=== PATIENT | female | born 1960 | race Caucasian/White ===

== ENCOUNTER → 2017-08-19 | Outpatient (CLI) | payer BC ==
[2017-08-19 17:38] LABS: BASO ABS # 0.06 K/uL (0-0.2); EOS % 3.4 %; EOS ABS # 0.21 K/uL (0-0.5); HEMATOCRIT 37.4 % (37-47); HEMOGLOBIN 13.2 g/dL (12.0-16.0); IG# 0.02 K/uL (0.00-0.02); LYMPH % 42.1 %; LYMPH ABS # 2.62 K/uL (1.2-3.4); MEAN CELL VOLUME 98.7 fL (80-100); MEAN CORPUSCULAR HEMOGLOBIN 34.8 pg (25-34); MEAN CORPUSCULAR HGB CONC 35.3 g/dl (32-36); MEAN PLATELET VOLUME 9.3 fL (7.4-10.4); MONO % 11.6 %; MONO ABS # 0.72 K/uL (0.11-0.59); NEUT % 41.6 %; NEUT ABS # 2.59 K/uL (1.4-6.5); PLATELET COUNT 289 K/uL (130-400); RED CELL DISTRIBUTION WIDTH CV 12.4 % (11.5-14.5); RED CELL DISTRIBUTION WIDTH SD 44.8 fL (36.4-46.3); WHITE BLOOD COUNT 6.22 K/uL (4.8-10.8)
[2017-08-19 17:57] LABS: ALBUMIN 3.8 gm/dl (3.4-5.0); ALT/SGPT 35 U/L (12-78); BLOOD UREA NITROGEN 8 mg/dl (7-18); CALCIUM 9.1 mg/dl (8.5-10.1); CARBON DIOXIDE 25 mmol/L (21-32); CREATININE 0.84 mg/dl (0.60-1.20); GLUCOSE 87 mg/dl (70-99); POTASSIUM 4.1 mmol/L (3.5-5.1); SODIUM 133 mmol/L (136-145)
[2017-08-19 18:07] LABS: ALKALINE PHOSPHATASE 67 U/L (45-117); AST/SGOT 41 U/L (15-37); TOTAL PROTEIN 7.8 gm/dl (6.4-8.2)
== END | disposition home or self-care (01) ==
LOC: C.LABMFLN 16:43
PROVIDERS: ATTEND Family Medicine
DX: R63.5 Abnormal weight gain (principal); I10 Essential (primary) hypertension; R53.83 Other fatigue

== ENCOUNTER → 2018-01-12 | Outpatient (CLI) | payer OTHER ==
--- NOTE | 2018-01-13 08:09 | MAMMOGRAPHY REPORT ---
BILATERAL DIGITAL SCREENING MAMMOGRAM TOMOSYNTHESIS WITH CAD: 01/12/2018 CLINICAL HISTORY: Routine screening. Patient has no complaints. TECHNIQUE: The study was acquired using full field digital technology and interpreted from soft copy. Breast tomosynthesis in addition to standard 2D mammography was performed. Current study was also ev aluated with a Computer Aided Detection (CAD) system. COMPARISON: Comparison is made to exams dated: 11/18/2015 mammogram, 06/11/2010 mammogram, 06/10/2009 mammogram - [facility], 06/11/2008, 06/07/2008, and 04/18/2007. BREAST COMPOSITION: The tissue of both breasts is heterogeneously dense, which may obscure small mass es. FINDINGS: There is a lobulated 17 mm mass within the left subareolar breast, for which targeted ultra sound and possible additional spot compression tomosynthesis views are recommended. Additionally, th ere are grouped calcifications within the left 12:00 posterior breast, for which spot magnification v iews are recommended. The remainder of both breasts are stable compared to prior exams, without suspicious masses, calcific ations, or areas of architectural distortion noted. Other scattered bilateral benign-appearing calci fications are not significantly changed. IMPRESSION: ACR BI-RADS CATEGORY 0: INCOMPLETE EVALUATION: NEED ADDITIONAL IMAGING EVALUATION Left breast mass and calcifications, for which additional imaging evaluation is recommended. The pat ient will be called to schedule an appointment. Approximately 10% of breast cancers are not detected with mammography. A negative mammographic report should not delay biopsy if a clinically suggestive mass is present. Kelly Gibbs M.D. ah/:01/13/2018 07:32:48 Bait Tier: Chayito Mathur RT(R)(M)(BD), [facility] letter sent: Addl Imaging 0 BI-RADS Code: ACR BI-RADS Category 0: Incomplete Evaluation: Need Additional Imaging Evaluation
== END | disposition home or self-care (01) ==
LOC: C.MAMM 16:59
PROVIDERS: ATTEND Family Medicine
DX: Z12.31 Encounter for screening mammogram for malignant neoplasm of breast (principal); R92.1 Mammographic calcification found on diagnostic imaging of breast; N63.20 Unspecified lump in the left breast, unspecified quadrant

== ENCOUNTER → 2018-01-21 | Outpatient (CLI) | payer OTHER ==
--- NOTE | 2018-01-21 14:52 | Discharge Instructions ---
Discharge Instructions Procedure Procedure Date: Jan 21, 2018. Reason for visit: Left Mass/Calcifications. Discharge Discharge Date: Jan 21, 2018. Discharge Diagnosis: status post breast biopsy Instructions Activity Recommendations: Additional Limitations (see below) Return to School/Work: no limitations Recommended Home Diet: No Limitations Provider Instructions: ACTIVITY RECOMMENDATIONS: * No lifting, pushing, pulling or exercising the affected side for three days. RETURN TO SCHOOL/WORK: * You may return to work/school after the procedure, but do not perform any strenuous activities for 24 to 48 hours. MEDICATIONS: * Tylenol (two 325 mg) every four to six hours if needed for mild pain (if not allergic to Tylenol). DIET: * Resume previous diet. SPECIAL CARE INSTRUCTIONS: * Keep biopsy site dry for 24 hours. May shower after 24 hours, but do not soak (bathe) incision. * May remove Tegaderm (plastic patch) 24 hours after procedure * Leave the steri-strips on for one week. Allow the steri-strips to fall off by themselves. If not off after one week, you may remove them. You may place a Bandaid crosswise over the strips, if desired. * Apply ice 10 minutes on and 10 minutes off as needed. * Wear a bra at bedtime to sleep more comfortably for 2-3 days. * Your referring physician should have the results after approximately 5 to 7 business days. * Call for unusual bleeding, fever, drainage, etc or if you have any questions call during normal business hours or after hours call Dr Gibbs, . FOLLOW UP VISIT: Follow-up with Referring Physician as scheduled. Yoselyn Campbelly Recommendations: Call your doctor if: * Temperature above 101 degrees * Pain not relieved by pain medicine ordered * There is increased drainage or redness from any incision * You have any unanswered questions or concerns. Your Doctors Instructions noted above were prepared by provider Kelly Gibbs. Patient Signature Section: Patient Instructions Signature Page Sukh Tate Patient (or Guardian) Signature/Date: I have read and understand the instructions given to me by my caregivers. Caregiver/RN/Doctor Signature/Date: The above-named patient and/or guardian has received patient instructions on this date. + Original Patient Signature Page (only) stays with chart. Please make copy for patient.
--- NOTE | 2018-01-21 15:39 | MAMMOGRAPHY REPORT ---
ULTRASOUND GUIDED BIOPSY LEFT BREAST: 01/21/2018 CLINICAL HISTORY: Hypoechoic mass in the left lower outer quadrant subareolar breast. PATIENT CONSENT: The procedure, risks and benefits were discussed with the patient and informed writt en consent was obtained. A timeout was performed immediately prior to the procedure. PROCEDURE DESCRIPTION: With ultrasound guidance, aseptic technique, and lidocaine as the local anesth etic (1% lidocaine to anesthetize the skin and 1% lidocaine with epinephrine to anesthetize the deepe r tissues), the mass of concern in the left subareolar breast was sampled 4 times with a 14-gauge mycirQle ieve biopsy needle. Immediately thereafter, with ultrasound guidance, a metallic localizer clip was placed at the biopsy site. Direct pressure was applied to the site immediately post procedure until hemostasis was achieved. Postprocedure unilateral mammograms were performed to confirm clip placeme nt, which shows a new ribbon-shaped biopsy marker clip within the biopsied mass. Steri-Strips were placed over the site and covered with an Opsite patch. The patient tolerated the procedure without co mplication. She was given wound care instructions. The specimens were sent to pathology for analysis . COMPARISON: Comparison is made to exams dated: 01/21/2018 ultrasound, 01/21/2018 mammogram, 01/12/2018 mammogram, 11/18/2015 mammogram, 06/11/2010 mammogram, and 06/10/2009 mammogram - [facility]. IMPRESSION: ULTRASOUND GUIDED BIOPSY Ultrasound-guided core needle biopsy of the left subareolar breast mass, with clip placement. The pa tient will receive pathology results from her referring provider. Kelly Gibbs M.D. /:01/21/2018 15:14:44 Metal Sprayer Protective Coating: Nighat Burch, [facility]
--- NOTE | 2018-01-21 15:41 | MAMMOGRAPHY REPORT ---
UNILATERAL LEFT DIGITAL DIAGNOSTIC MAMMOGRAM AND TARGETED LEFT ULTRASOUND: 01/21/2018 CLINICAL HISTORY: Call back from screening mammogram for left breast calcifications and left breast m ass. Family history of breast cancer including her mother. TECHNIQUE: The study was acquired using full field digital technology and interpreted from soft copy. Spot magnification left CC and ML views were obtained. COMPARISON: Comparison is made to exams dated: 01/12/2018 mammogram, 11/18/2015 mammogram, 06/11/2010 mammogram, 06/10/2009 mammogram - [facility], 06/07/2008, and 04/18/2007. BREAST COMPOSITION: The tissue of left breast is heterogeneously dense, which may obscure small geovany s. FINDINGS: Spot magnification views demonstrate a persistent low density lobulated 17 mm mass within the left neal bareolar breast, for which ultrasound was performed. There is a small 3 mm cluster of coarse heterog eneous calcifications within the left 12:00 breast which are increased compared to the prior 2016 exa m. Given the interval increase and given the heterogeneous morphology, the calcifications are indete rminate and stereotactic biopsy is recommended for further evaluation. A few other scattered benign coarse and rim calcifications are seen within the left breast on the magnification view. Targeted ultrasound was performed of the left subareolar breast in the region of the mammographic mas s. In the left lower outer quadrant subareolar region, there is a lobulated mixed hypoechoic and ane choic mass which measures 1.6 x 0.7 cm. The margins are not completely circumscribed. This is the a ppearance of a mixed solid and cystic mass and is indeterminate for malignancy. This corresponds wit h the mammographic mass. Recommend ultrasound-guided core needle biopsy for further evaluation. Postprocedural left CC and ML views were obtained after the biopsy performed on the same day. A new ribbon-shaped biopsy marker clip is seen within the biopsied mass in the left subareolar breast. No significant postbiopsy hematoma is seen. IMPRESSION: ACR BI-RADS CATEGORY 4: SUSPICIOUS, ULTRASOUND ACR BI-RADS CATEGORY 4: SUSPICIOUS 1. Lobulated 1.6 cm mixed cystic and solid mass in the left subareolar breast on ultrasound, which c orresponds with the mammographic mass. The mass is indeterminate and ultrasound-guided core needle b iopsy is recommended for further evaluation. 2. Small 3 mm cluster of coarse heterogeneous calcifications in the left 12:00 breast is also indete rminate and stereotactic biopsy is recommended for further evaluation. A phone call was made to the physician's office to confirm faxed results were received. The patient was verbally notified of the results. Per patient request the ultrasound-guided biopsy was performed today, however, due to time constraints the stereotactic biopsy was unable to be performed. The pat ient will need to return for stereotactic biopsy at a later date; she tentatively scheduled the stere otactic biopsy before leaving the department. Some breast cancers are not detected with mammography. A negative mammographic report should not bronson y biopsy if a clinically suggestive mass is present. Kelly Gibbs M.D. ah/:01/21/2018 15:12:57 Case Assembler: RT Be(Mandy)(M), [facility] letter sent: Abnormal 4/5 OVERALL STUDY BIRADS: 4 Suspicious abnormality
== END | disposition home or self-care (01) ==
LOC: C.MAMM 13:48
PROVIDERS: ATTEND Family Medicine
DX: N63.20 Unspecified lump in the left breast, unspecified quadrant (principal); R92.1 Mammographic calcification found on diagnostic imaging of breast; D24.2 Benign neoplasm of left breast; N60.82 Other benign mammary dysplasias of left breast

== ENCOUNTER → 2018-02-01 | Outpatient (CLI) | payer OTHER ==
--- NOTE | 2018-02-01 13:16 | Discharge Instructions ---
Discharge Instructions Procedure Procedure Date: Feb 01, 2018. Reason for visit: Left Calcs. Discharge Discharge Date: Feb 01, 2018. Discharge Diagnosis: post left breast stereotactic guided biopsy Instructions Activity Recommendations: Additional Limitations (see below) Return to School/Work: no limitations Recommended Home Diet: No Limitations Provider Instructions: ACTIVITY RECOMMENDATIONS: * No lifting, pushing, pulling or exercising the affected side for three days. RETURN TO SCHOOL/WORK: * You may return to work/school after the procedure, but do not perform any strenuous activities for 24 to 48 hours. MEDICATIONS: * Tylenol (two 325 mg) every four to six hours if needed for mild pain (if not allergic to Tylenol). DIET: * Resume previous diet. SPECIAL CARE INSTRUCTIONS: * Keep biopsy site dry for 24 hours. May shower after 24 hours, but do not soak (bathe) incision. May remove Tegaderm (plastic patch) 24 hours after procedure * Leave the steri-strips on for one week. Allow the steri-strips to fall off by themselves. If not off after one week, you may remove them. You may place a Bandaid crosswise over the strips, if desired. * Apply ice 10 minutes on and 10 minutes off as needed. * Wear a bra at bedtime to sleep more comfortably for 2-3 days. * Your referring physician should have the results after approximately 5 to 7 business days. * Call for unusual bleeding, fever, drainage, etc or if you have any questions call [phone] during normal business hours or after hours call Dr Stallworth, . FOLLOW UP VISIT: Follow-up with Referring Physician as scheduled. Yoselyn Oropeza Recommendations: Call your doctor if: * Temperature above 101 degrees * Pain not relieved by pain medicine ordered * There is increased drainage or redness from any incision * You have any unanswered questions or concerns. Your Doctors Instructions noted above were prepared by provider Rosy Stallworth. Patient Signature Section: Patient Instructions Signature Page Sukhlupe Tate Patient (or Guardian) Signature/Date: I have read and understand the instructions given to me by my caregivers. Caregiver/RN/Doctor Signature/Date: The above-named patient and/or guardian has received patient instructions on this date. + Original Patient Signature Page (only) stays with chart. Please make copy for patient.
--- NOTE | 2018-02-01 14:42 | MAMMOGRAPHY REPORT ---
STEREOTACTIC GUIDED BIOPSY LEFT BREAST: 02/01/2018 CLINICAL HISTORY: 57-year-old woman presents for stereotactic guided biopsy of a 3 mm cluster of coar se heterogeneous calcifications in the 12:00 posterior left breast. A recent ultrasound-guided core b iopsy of a left subareolar breast mass yielded a fibroepithelial lesion and atypia. COMPARISON: Comparison is made to exams dated: 01/21/2018 ultrasound biopsy, 01/21/2018 ultrasound, mammogram, 01/12/2018 mammogram, 11/18/2015 mammogram, and 06/11/2010 mammogram - [facility]. PATIENT CONSENT: After explaining the risks, benefits and alternatives of the procedure to the patien t, informed consent was obtained both verbally and in writing. Specific risks include: Bleeding, inf ection, puncture of adjacent structure, pain, nontarget biopsy, sampling error, metal allergy and med ication reaction. PROCEDURE DESCRIPTION: A time-out was performed and the left breast was confirmed as the site of biop sy. The patient was placed prone on the stereotactic biopsy table and the breast was placed in latera lmedial compression. A tomosynthesis kinesiotherapist view was obtained which demonstrates the 3 mm grouping of coarse heterogeneous calcifications in question and the calcifications were targeted utilizing the c oordinates obtained by the computer. The skin was prepped with Betadine. 1% Lidocaine with and witho ut epinipherine was administered as local anesthesia. A small skin incision was made. Through the in cision, the needle was inserted to the depth determined by the computer. 8 samples were obtained usin g a [email or web address] Eviva 9-gauge vacuum-assisted biopsy device. The specimen radiograph demonstrated several r epresentative microcalcifications, therefore, a metallic marker was placed at the biopsy site. There was no immediate complication. Hemostasis was achieved after several minutes of manual compression. The samples were sent to pathology in in an appropriately labeled container. Postprocedure CC and ML tomosynthesis views of the left breast were obtained. There is a new dumbbe ll-shaped biopsy marker clip and a 3.4 x 2.3 cm hematoma in the 12:00 posterior left breast at the si te of biopsy. IMPRESSION: STEREOTACTIC GUIDED BIOPSY Status post left breast stereotactic tomosynthesis guided biopsy of a 3 mm grouping of coarse heterog eneous calcifications in the 12:00 posterior left breast. The patient received notification of the biopsy results from her referring physician. Based on biopsy results from the recent previous ultrasound-guided core biopsy of a left subareolar m ass, given the pathologic finding of atypia, surgical consultation for excision is recommended. Rosy Stallworth M.D. ay/:02/01/2018 14:17:42 Attending Technologist: Nighat Burch, [facility] Hammerer: RT Francis(R)(M), [facility]
--- NOTE | 2018-02-01 14:45 | MAMMOGRAPHY REPORT ---
UNILATERAL LEFT DIGITAL DIAGNOSTIC MAMMOGRAM TOMOSYNTHESIS: 02/01/2018 CLINICAL HISTORY: 57-year-old woman with an indeterminate 3 mm cluster of coarse heterogeneous calcif ications in the 12:00 posterior left breast. She presents for stereotactic guided biopsy. A recent Ul trasound-guided core biopsy in the subareolar/retroareolar left breast yielded a fibroepithelial lesi on and atypia. Please refer to the report from left breast stereotactic tomosynthesis guided biopsy performed at the same time for full detail. IMPRESSION: POST PROCEDURE IMAGING FOR MARKER PLACEMENT Please refer to the report from left breast stereotactic tomosynthesis guided biopsy performed at the same time for full detail. Some breast cancers are not detected with mammography. A negative mammographic report should not bronson y biopsy if a clinically suggestive mass is present. Rosy Stallworth M.D. ay/:02/01/2018 13:18:02 [employer] Representatives: RT Francis(Mandy)(M), [facility] BI-RADS Code: Post Procedure Imaging For Marker Placement
== END | disposition home or self-care (01) ==
LOC: C.MAMM 12:28
PROVIDERS: ATTEND Family Medicine
DX: R92.0 Mammographic microcalcification found on diagnostic imaging of breast (principal)

== ENCOUNTER 2022-01-12 10:26 | Inpatient (IN) ==
[2022-01-12] MEDS ORDERED: ONDANSETRON INJ 2 MG/ML 2 ML VIAL IV STA (11:31)
[2022-01-12] MEDS ORDERED: MoRPHine SULFATE 4 MG/ML 1 ML CARP\\VIAL IV STA ×2 (11:31→13:17)
--- NOTE | 2022-01-12 11:34 | Emergency Department Note ---
History of Present Illness General Chief complaint: Hip Pain Stated complaint: LEFT HIP PAIN-POST OP-CAN NOT WALK Time Seen by Provider: 01/12/22 11:08 History of Present Illness Maximum Pain Intensity: 5 This is a 61-year-old female that presents to the emergency department via private vehicle accompanied by son with complaints of "left hip pain, postop, cannot walk". The patient notes that she underwent left hip surgery in August of this year. She states that she was doing okay in the postoperative setting and attending physical therapy. She notes then the pain seemed to return and has worsened to the point now where she cannot even walk on the left leg. She states that she lives alone. She has been falling. She cannot perform activities of daily living secondary to this pain and inability to ambulate on the left leg. The patient states that she has followed with orthopedist/PCP. The patient notes that she is currently on oxycodone but ran out of this today. She notes that that cannot seem to manage her discomfort. She states that she was not able to undergo surgery which was scheduled for this month and is scheduled for surgery January 28. She notes that she cannot wait until then secondary to her pain. Son at bedside voices concern over her at home as she lives alone. Patient rates her current pain at rest as a 5/10 but with attempted weightbearing the left leg it is significantly worse. Patient notes that her orthopedic surgeon is Dr. Peters of [place]. Home Medications Medication Instructions Recorded Confirmed Type omeprazole 20 mg capsule,delayed 20 mg PO QAM #90 caps 11/25/21 01/02/22 Rx release etodolac 500 mg tablet 500 mg PO BID 11/28/21 01/02/22 History multivitamin (Daily Multi-Vitamin) 1 tab PO QAM 11/28/21 01/02/22 History ferrous sulfate 65 mg PO QAM 12/01/21 01/02/22 History folic acid 1 mg tablet 1 mg PO QAM 12/01/21 01/02/22 History oxycodone-acetaminophen 5 mg-325 1 tab PO Q8H PRN Pain 12/01/21 01/02/22 History mg tablet senna 1 tab PO BID 12/05/21 01/02/22 History alprazolam 0.5 mg tablet 0.5 mg PO BID #60 tabs 12/15/21 01/02/22 Rx paroxetine HCl 20 mg tablet 20 mg PO DAILY #30 tabs 12/15/21 01/02/22 Rx paroxetine HCl 40 mg tablet 40 mg PO DAILY #30 tabs 12/15/21 01/02/22 Rx levothyroxine 88 mcg tablet 88 mcg PO DAILY #30 tabs 01/04/22 Rx (Synthroid) magnesium oxide 400 mg PO DAILY #30 tabs 01/05/22 Rx Allergies Allergy/AdvReac Type Severity Reaction Status Date / Time amoxicillin [From Augmentin] Allergy Severe cdif Verified 01/02/22 11:06 clavulanic acid Allergy Severe cdif Verified 01/02/22 11:06 [From Augmentin] sulfamethoxazole Allergy Severe Rash Verified 01/02/22 11:06 [From Bactrim] trimethoprim [From Bactrim] Allergy Severe Rash Verified 01/02/22 11:06 codeine AdvReac Severe "really Verified 01/02/22 11:06 sick" Past Med/Surg History Medical History Anxiety Depression Hx of fracture of left hip Hx of gastroesophageal reflux (GERD) Hypothyroidism Major depressive disorder Surgical History History of colonoscopy History of esophagogastroduodenoscopy (EGD) History of open reduction and internal fixation (ORIF) procedure left, pinning, done at [place] History of tonsillectomy Hx of breast biopsy lt. Family History Mother Anxiety Bipolar disorder Heart disease Depression Breast cancer Father Bipolar disorder Lung disease Colorectal cancer Prostate cancer Social History Smoking Status: Current every day smoker Tobacco Type: Cigarettes Age Started Using Tobacco: 17; packs per day: 1; Cigarettes Per Day: 10-20/day; Second Hand Exposure: No; Hx Alcohol Use: Yes Alcohol type: beer Hx Substance Use: No Preferred Language: Upper Sorbian Communication Ability: Effective Visual Impairment: No Limitations Hearing Ability: Normal Category Consultant Required: No Beliefs That Will Affect Care: None marital status: Single Current Living Situation: Alone current occupational status: retired current occupation: Retired- [employer] Feels Safe at Home: Yes Childhood Exposure to Second-Hand Smoke: Yes caffeine: Yes (coffee ) Dental Care, Regularly: No Physical Activity Frequency: Does not Exercise Seatbelt Use: always Assistive Devices: Glasses and Walker Review of Systems A total of 10 systems reviewed and were otherwise negative Physical Exam Vital Signs Vital Signs - 24 hr 01/12/22 10:28 01/12/22 11:57 01/12/22 12:26 Temperature 36.6 C Temperature Source Temporal Artery Scan Pulse Rate 70 88 Pulse Rate [Left Finger] 87 Respiratory Rate 17 17 16 Respiratory Effort / Characteristics Non-Labored Spontaneous Non-Labored Respiratory Depth Normal Blood Pressure 124/69 Blood Pressure [Left Arm] 121/71 Blood Pressure Mean 87 Blood Pressure Mean [Left Arm] 87 Blood Pressure Position Sitting Pulse Oximetry 98 96 96 Oxygen Delivery Method Room Air Room Air Sepsis Recent Fever Within 48 Hours No Sepsis New/Unexplained Change in Mental Status No Sepsis Action Taken by Nursing No Action Required 01/12/22 14:00 Temperature Temperature Source Pulse Rate Pulse Rate [Left Finger] 79 Respiratory Rate 15 Respiratory Effort / Characteristics Non-Labored Respiratory Depth Blood Pressure Blood Pressure [Left Arm] 116/63 Blood Pressure Mean Blood Pressure Mean [Left Arm] 80 Blood Pressure Position Pulse Oximetry 91 Oxygen Delivery Method Room Air Sepsis Recent Fever Within 48 Hours Sepsis New/Unexplained Change in Mental Status Sepsis Action Taken by Nursing VITAL SIGNS - Vital signs and nursing notes were reviewed. Stable and afebrile. GENERAL -61-year-old female appearing her stated age who is in no acute distress. Communicates well with provider and answers questions appropriately. SKIN - Without rashes. No meningeal or petechial rash. The surgical incision overlying the left lateral hip region is within normal limits. It is well- healed. No dehiscence. No erythema. No fluctuance. No edema. HEAD - NC/AT. EYES - Sclera anicteric. EARS - No deformities of external structures noted on gross examination bilaterally. NOSE - Midline and without cyanosis. No epistaxis or purulent drainage noted. MOUTH/OROPHARYNX - Without perioral cyanosis. NECK - Neck with FROM. No nuchal rigidity. LUNGS - Chest wall symmetric without accessory muscle use, intercostals retractions, or central cyanosis. Normal vesicular breath sounds CTA B/L. No wheezes, rales, or rhonchi appreciated. CARDIAC - RRR with S1/S2. No murmur, rubs, or gallops appreciated. EXTREMITIES - No clubbing or peripheral cyanosis. +5/5 strength noted in UE/LE bilaterally. No bony tenderness to the left greater trochanter region however there is tenderness just superior to this and inferior to this. No step-off. No deformity. No fluctuance. No crepitus. Left dorsalis pedis pulse intact. Temperature symmetric in the lower extremities left compared to right. NEUROLOGIC - Cranial nerves II through XII grossly intact. PSYCH - A&Ox3 and cooperates fully with examiner. Pt is very pleasant and interacts well with examiner. Course Administered Medications Discontinued Medications Morphine Sulfate (Morphine Sulfate 4 Mg/Ml 1 Ml Carp\\Vial) 4 mg IV NOW STA Stop: 01/12/22 11:32 Last Admin: 01/12/22 11:49 Dose: 4 mg Documented By: ML Morphine Sulfate (Morphine Sulfate 4 Mg/Ml 1 Ml Carp\\Vial) 4 mg IV NOW STA Stop: 01/12/22 13:18 Last Admin: 01/12/22 13:22 Dose: 4 mg Documented By: ML Morphine Sulfate (Morphine Sulfate 2 Mg/Ml Carp) 2 mg IV NOW STA Stop: 01/12/22 15:30 Last Admin: 01/12/22 15:49 Dose: 2 mg Documented By: ML Ondansetron HCl (Ondansetron Inj 2 Mg/Ml 2 Ml Vial) 4 mg IV NOW STA Stop: 01/12/22 11:32 Last Admin: 01/12/22 11:49 Dose: 4 mg Documented By: ML Medical Decision Making Laboratory Data Result diagrams: 01/12/22 11:53 01/12/22 11:53 Lab Results 01/12/22 01/12/22 01/12/22 Range/Units 11:53 11:53 11:53 WBC 8.02 (4.8-10.8) K/ul RBC 3.74 L (3.93-5.22) M/uL Hgb 11.6 L (12.0-16.0) g/dl Hct 34.5 (34.1-44.9) % MCV 92.2 (80.0-100.0) fL MCH 31.0 (25.0-34.0) pg MCHC 33.6 (32.0-36.0) g/dL RDW Std Deviation 40.9 (36.4-46.3) fL RDW Coeff of Roland 12.0 (11.5-14.5) % Plt Count 322 (130-400) K/uL MPV 9.1 L (9.4-12.3) fL Immature Gran % (Auto) 0.2 % Neut % (Auto) 68.7 % Lymph % (Auto) 20.1 % Mccracken % (Auto) 8.7 % Eos % (Auto) 1.4 % Baso % (Auto) 0.9 % Neut # (Auto) 5.51 (1.4-6.5) K/uL Lymph # (Auto) 1.61 (1.2-3.4) K/uL Mccracken # (Auto) 0.70 (0.24-0.82) K/uL Eos # (Auto) 0.11 (0-0.50) K/uL Baso # (Auto) 0.07 (0-0.2) K/uL Immature Gran # (Auto) 0.02 (0.00-0.02) K/uL PT 10.6 (9.0-12.0) Seconds INR 1.0 (0.9-1.1) APTT 28.7 (21.0-31.0) Seconds PTT Ratio 1.0 Sodium 131 L (136-145) mmol/L Potassium 5.1 (3.5-5.1) mmol/L Chloride 99 (98-107) mmol/L Carbon Dioxide 27 (21-32) mmol/L Anion Gap 5 (3-11) BUN 13 (6-23) mg/dl Creatinine 0.75 (0.6-1.2) mg/dl Est Cr Clr Drug Dosing Not Reportable Est GFR ( Amer) 99.0 ml/min Est GFR (Non-Af Amer) 85.4 ml/min BUN/Creatinine Ratio 17.3 (10-20) Glucose 81 (70-99(Fasting)) mg/dl Calcium 9.6 (8.5-10.1) mg/dl Magnesium 1.6 L (1.7-2.4) mg/dl Total Bilirubin 0.5 (0.2-1.0) mg/dl AST 20 (13-39) U/L ALT 16 (7-52) U/L Alkaline Phosphatase 85 (34-104) U/L Total Protein 7.7 (6.0-8.3) gm/dl Albumin 4.0 (3.4-5.0) gm/dl Globulin 3.7 (2.5-4.0) gm/dl Albumin/Globulin Ratio 1.1 (0.9-2) SARS-CoV-2, RNA, NAAT (NEGATIVE) 01/12/22 Range/Units 15:11 WBC (4.8-10.8) K/ul RBC (3.93-5.22) M/uL Hgb (12.0-16.0) g/dl Hct (34.1-44.9) % MCV (80.0-100.0) fL MCH (25.0-34.0) pg MCHC (32.0-36.0) g/dL RDW Std Deviation (36.4-46.3) fL RDW Coeff of Roland (11.5-14.5) % Plt Count (130-400) K/uL MPV (9.4-12.3) fL Immature Gran % (Auto) % Neut % (Auto) % Lymph % (Auto) % Mccracken % (Auto) % Eos % (Auto) % Baso % (Auto) % Neut # (Auto) (1.4-6.5) K/uL Lymph # (Auto) (1.2-3.4) K/uL Mccracken # (Auto) (0.24-0.82) K/uL Eos # (Auto) (0-0.50) K/uL Baso # (Auto) (0-0.2) K/uL Immature Gran # (Auto) (0.00-0.02) K/uL PT (9.0-12.0) Seconds INR (0.9-1.1) APTT (21.0-31.0) Seconds PTT Ratio Sodium (136-145) mmol/L Potassium (3.5-5.1) mmol/L Chloride (98-107) mmol/L Carbon Dioxide (21-32) mmol/L Anion Gap (3-11) BUN (6-23) mg/dl Creatinine (0.6-1.2) mg/dl Est Cr Clr Drug Dosing Est GFR ( Amer) ml/min Est GFR (Non-Af Amer) ml/min BUN/Creatinine Ratio (10-20) Glucose (70-99(Fasting)) mg/dl Calcium (8.5-10.1) mg/dl Magnesium (1.7-2.4) mg/dl Total Bilirubin (0.2-1.0) mg/dl AST (13-39) U/L ALT (7-52) U/L Alkaline Phosphatase (34-104) U/L Total Protein (6.0-8.3) gm/dl Albumin (3.4-5.0) gm/dl Globulin (2.5-4.0) gm/dl Albumin/Globulin Ratio (0.9-2) SARS-CoV-2, RNA, NAAT NEGATIVE (NEGATIVE) Imaging Data Radiologist's Impression: Femur X-Ray 01/12/22 11:30 XR femur LT 2V routine, XR pelvis 1-2V routine CLINICAL HISTORY: L hip pain TECHNIQUE: 2 radiographic views of the left femur and one view of the pelvis were obtained. Comparison: None available at the time of this dictation. FINDINGS: Intertrochanteric screws are noted on the left. There is fragmentation and degenerative changes of the left femoral head. Mild degenerative changes are seen in the right hip joint, moderate degenerative changes are in the visualized lumbar spine. The soft tissues are unremarkable. IMPRESSION: Chronic changes are seen without definite evidence of acute fracture, noting limitation of an absence of prior radiographs available for comparison. Intertrochanteric screws are seen in the left femur with fragmentation and degeneration of the left hip joint. ACT 112: Negative or not required by law. Electronically signed by: Galindo Power M.D. 01/12/2022 12:44 PM Pelvis X-Ray 01/12/22 11:30 XR femur LT 2V routine, XR pelvis 1-2V routine CLINICAL HISTORY: L hip pain TECHNIQUE: 2 radiographic views of the left femur and one view of the pelvis were obtained. Comparison: None available at the time of this dictation. FINDINGS: Intertrochanteric screws are noted on the left. There is fragmentation and degenerative changes of the left femoral head. Mild degenerative changes are seen in the right hip joint, moderate degenerative changes are in the visualized lumbar spine. The soft tissues are unremarkable. IMPRESSION: Chronic changes are seen without definite evidence of acute fracture, noting limitation of an absence of prior radiographs available for comparison. Intertrochanteric screws are seen in the left femur with fragmentation and degeneration of the left hip joint. ACT 112: Negative or not required by law. Electronically signed by: Galindo Power M.D. 01/12/2022 12:44 PM MDM Narrative Patient was seen and evaluated as above in room B04. Review was performed of nursing notes and vital signs. I did review pertinent previous visits and patient history. After obtaining a thorough history and physical examination the above work up was performed. Patient presents to us today for evaluation of ongoing left hip discomfort. Patient notes that she underwent left hip surgery in August 2021. She was initially doing well she states in the outpatient/postoperative setting but unfortunately notes return of discomfort now to the point where she is not able to bear weight/ambulate on the left leg. She lives at home. She is here with her son and her son expresses concern over her going home as she does not seem to be able to care for herself safely. Patient notes that she tried calling a nursing facility but notes that she was denied by her insurance secondary to not having the surgery as of yet to replace the hip/inpatient stay. The patient on examination does have a well-healed surgical incision to the left lateral hip joint. There is no evidence of infection. Options of care were discussed with the patient. I did find it reasonable to proceed with x-rays of the patient's pelvis/left femur region to evaluate bony structures. The patient does not seem to have any recent trauma or injury which would lead to acute fracture. The patient does not have any findings by history or exam to suggest infection. She is neurovascularly intact in the lower extremities on my examination. It seems as though the patient is not able to adequately manage her discomfort in the outpatient setting despite prescription pain medication. The patient previously had followed with a [facility] surgeon at [place] but notes that she prefers to follow-up with a surgeon here at [facility]. I spoke with our on-call orthopedic surgeon, Dr. Mullins. We discussed options. At this time it is recommended to have the patient follow-up with her established orthopedic surgeon/surgical group with [facility] to see 1 other joint specialist. I believe this is reasonable. I discussed this with the patient. I then discussed this with her orthopedic surgeon team and spoke to Mora Spivey PA-C. Patient is scheduled for surgery with her team on January 28. She also notes that she prescribed the patient additional pain medication which was sent to the pharmacy this morning. It seems as though the patient has not followed through with some of the recommended preop testing which has subsequently led to a delay in her surgery of which is now on January 28. Patient at this time does not reveal any neurovascular compromise or deficit. No evidence of infection clinically. At this time, I believe it would be reasonable to have the patient admitted to the hospitalist service for further evaluation and management, pain control, and then placement potentially to a retirement facility pending surgical intervention. Patient happy with this plan of care. Case discussed with the hospitalist service. Please refer to further documentation regarding her stay. Patient imaging as above. No evidence of acute fracture. Labs reveal no leukocytosis. Mild anemia noted with hemoglobin of 11.6. Mild hyponatremia 131. Mild hypomagnesemia 1.6. COVID testing negative. Case was discussed with the attending physician. GCS: 15 In the evaluation and treatment of this patient the following differential diagnoses were entertained: Fracture, dislocation, subluxation, contusion, avascular necrosis, infection, lumbar radiculopathy, among others. Impression & Plan Hip pain, left Discharge Plan Visit Data Chief Complaint: Hip Pain Stated Complaint: LEFT HIP PAIN-POST OP-CAN NOT WALK ED Provider: Corona Sprague ED Midlevel Provider: Ramón Rowe Discharge Problem: Hip pain, left Patient Disposition: Admitted As Inpatient Condition: Good Forms Stand Alone Forms: [facility], [facility] Emergency Department, Important Visit Information Prescriptions Prescriptions: No Action omeprazole 20 mg capsule,delayed release(DR/EC) 20 mg PO QAM Qty: 90 0RF alprazolam 0.5 mg tablet 0.5 mg PO BID Qty: 60 0RF paroxetine HCl 20 mg tablet 20 mg PO DAILY Qty: 30 2RF Rx Instructions: in addition to 40mg tab paroxetine HCl 40 mg tablet 40 mg PO DAILY Qty: 30 2RF Rx Instructions: in addition to 20mg tab levothyroxine [Synthroid] 88 mcg tablet 88 mcg PO DAILY Qty: 30 2RF magnesium oxide 400 mg magnesium tablet 400 mg PO DAILY Qty: 30 0RF multivitamin [Daily Multi-Vitamin] Tablet 1 tab PO QAM etodolac 500 mg tablet 500 mg PO BID ferrous sulfate 65 mg PO QAM oxycodone-acetaminophen 5-325 mg Tablet 1 tab PO Q8H PRN (Reason: Pain) folic acid 1 mg Tablet 1 mg PO QAM senna 1 tab PO BID Referrals Referrals: Horacio Morgan DO [Primary Care Provider] -
[2022-01-12 12:04] LABS: Basophils # (auto) 0.07 K/uL (0-0.2); Basophils % (auto) 0.9 %; Eosinophils # (auto) 0.11 K/uL (0-0.50); Eosinophils % (auto) 1.4 %; Hematocrit (blood only) 34.5 % (34.1-44.9); Hemoglobin 11.6 g/dl (12.0-16.0); Immature Granulocytes # (auto) 0.02 K/uL (0.00-0.02); Immature Granulocytes % (auto) 0.2 %; Lymphocytes # (auto) 1.61 K/uL (1.2-3.4); Lymphocytes % (auto) 20.1 %; Mean Corpuscular Hgb Conc 33.6 g/dL (32.0-36.0); Mean Corpuscular Volume 92.2 fL (80.0-100.0); Mean Platelet Volume 9.1 fL (9.4-12.3); Monocytes % (auto) 8.7 %; Neutrophils # (auto) 5.51 K/uL (1.4-6.5); Neutrophils % (auto) 68.7 %; Platelet Count 322 K/uL (130-400); RDW Standard Deviation 40.9 fL (36.4-46.3); Red Blood Count 3.74 M/uL (3.93-5.22); White Blood Count 8.02 K/ul (4.8-10.8)
[2022-01-12 12:16] LABS: Partial Thromboplastin Time 28.7 Seconds (21.0-31.0); Prothrombin Time 10.6 Seconds (9.0-12.0)
[2022-01-12 12:26] LABS: Alanine Aminotransferase 16 U/L (7-52); Albumin Globulin Ratio 1.1 (0.9-2); Alkaline Phosphatase 85 U/L (34-104); Anion Gap 5 (3-11); Aspartate Aminotransferase 20 U/L (13-39); BUN Creatinine Ratio 17.3 (10-20); Bilirubin,Total 0.5 mg/dl (0.2-1.0); Blood Urea Nitrogen 13 mg/dl (6-23); Calcium 9.6 mg/dl (8.5-10.1); Carbon Dioxide 27 mmol/L (21-32); Chloride 99 mmol/L (98-107); Est GFR (Non-African American) 85.4 ml/min; Globulin 3.7 gm/dl (2.5-4.0); Glucose 81 mg/dl (70-99(Fasting)); Magnesium 1.6 mg/dl (1.7-2.4); Potassium 5.1 mmol/L (3.5-5.1); Sodium 131 mmol/L (136-145); Total Protein 7.7 gm/dl (6.0-8.3)
--- NOTE | 2022-01-12 12:46 | XRay Report ---
XR femur LT 2V routine, XR pelvis 1-2V routine CLINICAL HISTORY: L hip pain TECHNIQUE: 2 radiographic views of the left femur and one view of the pelvis were obtained. Comparison: None available at the time of this dictation. FINDINGS: Intertrochanteric screws are noted on the left. There is fragmentation and degenerative changes of th e left femoral head. Mild degenerative changes are seen in the right hip joint, moderate degenerative changes are in the visualized lumbar spine. The soft tissues are unremarkable. IMPRESSION: Chronic changes are seen without definite evidence of acute fracture, noting limitation of an absence of prior radiographs available for comparison. Intertrochanteric screws are seen in the left femur w ith fragmentation and degeneration of the left hip joint. ACT 112: Negative or not required by law. Electronically signed by: Galindo Power M.D. 01/12/2022 12:44 PM
[2022-01-12] MEDS ORDERED: MoRPHine SULFATE 2 MG/ML CARP IV STA (15:29)
--- NOTE | 2022-01-12 15:55 | History & Physical Report ---
Date of Service January 12, 2022 Assessment & Plan (1) Hyponatremia: Plan: - 131, baseline for patient upon review of recent labs. (2) Hypomagnesemia: Plan: - 1.6, on daily magnesium supplementation. - Switch from omeprazole to Pepcid. (3) Anemia: Plan: - Chronic, on daily p.o. iron and folic acid supplementation. - Hgb near baseline today. (4) Hypothyroidism: Plan: - Continue levothyroxine 88 mcg daily. (5) Depression: Plan: - Continue paroxetine 60 mg daily. (6) Anxiety: Plan: - Continue alprazolam 0.5 mg twice daily, as needed. (7) Tobacco use: Plan: - Reports smoking 1 PPD; declines nicotine patch at this time. (8) Alcohol abuse: Plan: - History of per chart review, patient denies this. - Continue folic acid supplementation. Plan - Admit to med/surg. - SCDs for VTE ppx. - Full Code. History of Present Illness Chief Complaint: left hip pain Primary Care Provider: DO Juvencio Wittlupe Tate is a 49-year-old female with past medical history significant for hypothyroidism, GERD, tobacco use, alcohol use, depression, and anxiety who presents with worsening hip pain. Patient had a femur fracture in August and is s/p pinning by Dr. Peters and has been undergoing PT. She initially was responding well to PT, however the last several months, she has had worsening hip pain has not been unable to progress. A hip x-ray from November showed left hip avascular necrosis and patient was scheduled for a total hip replacement the beginning of December, however missed her preop clearance appointment, therefore surgery has been postponed to January. She has been prescribed Percocet, however this is no longer managing her pain and she cannot ambulate at home, reports she has fallen several times due to pain. She is otherwise well complaints, no chest pain, palpitations, shortness of breath, cough, abdominal pain, nausea, vomiting, urinary retention, constipation, numbness or tingling in groin or left leg. In ED, her VS are wnl and stable. Labs largely unremarkable, she has a stable anemia with Hgb 11.6, Na 131, Mg 1.6. Femur and pelvis x rays show chronic changes without evidence of acute fracture. Allergies Allergy/AdvReac Type Severity Reaction Status Date / Time amoxicillin [From Augmentin] Allergy Severe cdif Verified 01/12/22 17:23 clavulanic acid Allergy Severe cdif Verified 01/12/22 17:23 [From Augmentin] sulfamethoxazole Allergy Severe Rash Verified 01/12/22 17:23 [From Bactrim] trimethoprim [From Bactrim] Allergy Severe Rash Verified 01/12/22 17:23 codeine AdvReac Severe "really Verified 01/12/22 17:23 sick" Home Medications Medication Instructions Recorded Confirmed Type omeprazole 20 mg capsule,delayed 20 mg PO QAM #90 caps 11/25/21 01/12/22 Rx release etodolac 500 mg tablet 500 mg PO BID 11/28/21 01/12/22 History multivitamin (Daily Multi-Vitamin) 1 tab PO QAM 11/28/21 01/12/22 History folic acid 1 mg tablet 1 mg PO QAM 12/01/21 01/12/22 History alprazolam 0.5 mg tablet 0.5 mg PO BID #60 tabs 12/15/21 01/12/22 Rx paroxetine HCl 20 mg tablet 20 mg PO DAILY #30 tabs 12/15/21 01/12/22 Rx paroxetine HCl 40 mg tablet 40 mg PO DAILY #30 tabs 12/15/21 01/12/22 Rx magnesium oxide 400 mg PO DAILY #30 tabs 01/05/22 01/12/22 Rx ferrous sulfate 324 mg (65 mg 324 mg PO QAM 01/12/22 01/12/22 History iron) tablet,delayed release levothyroxine 88 mcg tablet 88 mcg PO DAILYBB 01/12/22 01/12/22 History (Synthroid) sennosides 8.6 mg tablet (senna) 8.6 mg PO BID 01/12/22 01/12/22 History aspirin 81 mg tablet,delayed 81 mg PO BID 42 days #84 tabs 01/19/22 Rx release oxycodone-acetaminophen 5 mg-325 1 tab PO Q8H PRN Pain #30 tabs 01/19/22 Rx mg tablet Past Med/Surg History Medical History Anxiety Depression Hx of fracture of left hip Hx of gastroesophageal reflux (GERD) Hypothyroidism Major depressive disorder Surgical History History of colonoscopy History of esophagogastroduodenoscopy (EGD) History of open reduction and internal fixation (ORIF) procedure left, pinning, done at [facility] History of tonsillectomy Hx of breast biopsy lt. Family History Mother Anxiety Bipolar disorder Heart disease Depression Breast cancer Father Bipolar disorder Lung disease Colorectal cancer Prostate cancer Social History Smoking Status: Current every day smoker Tobacco Type: Cigarettes Age Started Using Tobacco: 17; packs per day: 1; Cigarettes Per Day: 10-20/day; Second Hand Exposure: No; Hx Alcohol Use: Yes (quit in august) Alcohol type: beer Hx Substance Use: No Preferred Language: Ukrainian Communication Ability: Effective Visual Impairment: No Limitations Hearing Ability: Normal [employer] Required: No Beliefs That Will Affect Care: None marital status: Current Living Situation: Alone current occupational status: retired current occupation: Retired- [employer] Feels Safe at Home: Yes Childhood Exposure to Second-Hand Smoke: Yes caffeine: Yes (coffee ) Dental Care, Regularly: No Physical Activity Frequency: Does not Exercise Seatbelt Use: always Assistive Devices: Walker Review of Systems Review of Systems: Constitutional: No fever/chills, weakness, fatigue, myalgias, anorexia, night sweats Eyes: No diplopia, no worsening or blurred vision ENT: normal hearing, no trouble swallowing Respiratory: No cough, sputum, dyspnea at rest or on exertion Cardiovascular: No chest pain, tightness or palpitations Abdomen: No pain, nausea, vomiting, diarrhea or constipation : Denies dysuria, hematuria, increased urgency/frequency, urinary retention Musculoskeletal: Left throbbing hip and knee pain with movement; no swelling, calf pain Neurologic: No weakness, numbness/tingling, or balance problems Psychiatric: No anxiety or depression Skin: No rash or itch Physical Exam Physical Exam: General: awake, alert, no apparent distress Head: Normocephalic, atraumatic ENT: PERRL, EOMI, no pharyngeal exudate, mucous membranes moist Chest: Clear to auscultation, on room air, no adventitious breath sounds Cardiac: Regular rate and rhythm, no murmur, no JVD, normal peripheral pulses, good capillary refill Abdominal: NABS x 4 quadrants, soft, nontender to palpation, no rebound, guarding or tenderness Extremities: Normal inspection, no peripheral edema or erythema, calfs nontender to palpation Psych: Normal mood and affect Neuro: AAO x 3, strength intact bilaterally and rated 5/5, no motor deficits, speech is clear, no peripheral sensory deficits Skin: no rash or erythema Results & Data Results & Data ([facility]) Vital Signs (Past 12 Hours) Vital Signs Temp Pulse Pulse Resp BP BP Pulse Ox 01/12/22 14:00 79 15 116/63 91 01/12/22 12:26 87 16 121/71 96 01/12/22 11:57 88 17 96 01/12/22 10:28 36.6 C 70 17 124/69 98 O2 Del Method 01/12/22 14:00 Room Air 01/12/22 12:26 Room Air 01/12/22 11:57 01/12/22 10:28 Room Air Laboratory Results Abnormal lab results 01/12/22 01/12/22 Range/Units 11:53 11:53 RBC 3.74 L (3.93-5.22) M/uL Hgb 11.6 L (12.0-16.0) g/dl MPV 9.1 L (9.4-12.3) fL Sodium 131 L (136-145) mmol/L Magnesium 1.6 L (1.7-2.4) mg/dl Diagnostic Findings Femur X-Ray 01/12/22 11:30 XR femur LT 2V routine, XR pelvis 1-2V routine CLINICAL HISTORY: L hip pain TECHNIQUE: 2 radiographic views of the left femur and one view of the pelvis were obtained. Comparison: None available at the time of this dictation. FINDINGS: Intertrochanteric screws are noted on the left. There is fragmentation and degenerative changes of the left femoral head. Mild degenerative changes are seen in the right hip joint, moderate degenerative changes are in the visualized lumbar spine. The soft tissues are unremarkable. IMPRESSION: Chronic changes are seen without definite evidence of acute fracture, noting limitation of an absence of prior radiographs available for comparison. Intertrochanteric screws are seen in the left femur with fragmentation and degeneration of the left hip joint. ACT 112: Negative or not required by law. Electronically signed by: Galindo Power M.D. 01/12/2022 12:44 PM Pelvis X-Ray 01/12/22 11:30 XR femur LT 2V routine, XR pelvis 1-2V routine CLINICAL HISTORY: L hip pain TECHNIQUE: 2 radiographic views of the left femur and one view of the pelvis were obtained. Comparison: None available at the time of this dictation. FINDINGS: Intertrochanteric screws are noted on the left. There is fragmentation and degenerative changes of the left femoral head. Mild degenerative changes are seen in the right hip joint, moderate degenerative changes are in the visualized lumbar spine. The soft tissues are unremarkable. IMPRESSION: Chronic changes are seen without definite evidence of acute fracture, noting limitation of an absence of prior radiographs available for comparison. Intertrochanteric screws are seen in the left femur with fragmentation and degeneration of the left hip joint. ACT 112: Negative or not required by law. Electronically signed by: Galindo Power M.D. 01/12/2022 12:44 PM Code Status & VTE Plan Code Status Full code Supervising Physician Co-Signing Physician Notes Reviewed medical record, discussed with ROYCE on their service. Patient presented secondary to worsening hip pain, attributed to avascular necrosis. Patient's had worsening pain, has had some difficulty having VICKY as detailed above. Agree with assessment and plan as noted. PG Care Time/CCT Total # of Minutes Spent Total Time Spent with Patient: Total time spent is greater than 50% in coordination of care (as documented) at patient's floor/unit and/or counseling patient: Coding Level of Care Code 16870 Initial Inpt Care Lvl 2 Diagnoses Hyponatremia E87.1 Hypomagnesemia E83.42 Anemia D64.9 Hypothyroidism E03.9 Depression F32.9 Anxiety F41.9 Tobacco use Z72.0 Alcohol abuse F10.10
[2022-01-12] MEDS ORDERED: ONDANSETRON INJ 2 MG/ML 2 ML VIAL IV PRN (20:11)
[2022-01-12] MEDS ORDERED: ACETAMINOPHEN 325 MG TAB PO PRN (20:11)
[2022-01-12] MEDS ORDERED: POLYETHYLENE (MIRALAX) 17 GM PACK PO PRN (20:11)
[2022-01-12] MEDS: MoRPHine SULFATE 4 MG/ML 1 ML CARP\\VIAL IV PRN (20:30)
[2022-01-12] MEDS ORDERED: MAGNESIUM SULFATE / D5W 1 GM/100 ML BAG IV ONE (20:30)
[2022-01-12] MEDS: ALPRAZolam 0.5 MG TABLET PO SCH (22:59)
[2022-01-12] MEDS: SENNA 8.6 MG TAB PO SCH (23:01)
[2022-01-12] MEDS: LIDOCAINE 5% 1 PATCH TD SCH (23:02)
[2022-01-12] MEDS: HYDROmorphone INJ 0.5 MG/0.5 ML SYR IV PRN (23:03)
[2022-01-13] MEDS: MoRPHine SULFATE 4 MG/ML 1 ML CARP\\VIAL IV PRN ×3 (00:21→10:07)
[2022-01-13] MEDS: LEVOTHYROXINE SODIUM 88 MCG TABLET PO SCH (06:26)
[2022-01-13 07:09] LABS: Basophils # (auto) 0.11 K/uL (0-0.2); Basophils % (auto) 1.4 %; Eosinophils # (auto) 0.23 K/uL (0-0.50); Hematocrit (blood only) 34.7 % (34.1-44.9); Hemoglobin 11.8 g/dl (12.0-16.0); Immature Granulocytes # (auto) 0.02 K/uL (0.00-0.02); Immature Granulocytes % (auto) 0.3 %; Lymphocytes # (auto) 1.77 K/uL (1.2-3.4); Lymphocytes % (auto) 23.3 %; Mean Corpuscular Volume 91.1 fL (80.0-100.0); Mean Platelet Volume 9.4 fL (9.4-12.3); Monocytes # (auto) 0.81 K/uL (0.24-0.82); Monocytes % (auto) 10.6 %; Neutrophils # (auto) 4.67 K/uL (1.4-6.5); Neutrophils % (auto) 61.4 %; Platelet Count 337 K/uL (130-400); RDW Coefficient of Variation 11.7 % (11.5-14.5); RDW Standard Deviation 39.4 fL (36.4-46.3); Red Blood Count 3.81 M/uL (3.93-5.22); White Blood Count 7.61 K/ul (4.8-10.8)
[2022-01-13] MEDS: HYDROmorphone INJ 0.5 MG/0.5 ML SYR IV PRN (07:26)
[2022-01-13] MEDS: FOLIC ACID 1 MG TAB PO SCH (07:35)
[2022-01-13] MEDS: PARoxetine HCL 20 MG TAB PO SCH ×2 (07:35)
[2022-01-13] MEDS: ALPRAZolam 0.5 MG TABLET PO SCH ×2 (07:35→20:09)
[2022-01-13] MEDS: MAGNESIUM OXIDE 400 MG TAB PO SCH (07:35)
[2022-01-13] MEDS: FERROUS SULFATE 325 MG TAB PO SCH (07:35)
[2022-01-13 07:44] LABS: BUN Creatinine Ratio 14.3 (10-20); Calcium 9.5 mg/dl (8.5-10.1); Creatinine Clr Calc Pharmacy 74.1 ml/min; Est GFR (African American) 111.4 ml/min; Est GFR (Non-African American) 96.1 ml/min; Magnesium 1.7 mg/dl (1.7-2.4)
[2022-01-13] MEDS ORDERED: FAMOTIDINE 20 MG TAB PO SCH (09:00)
[2022-01-13] MEDS: SENNA 8.6 MG TAB PO SCH ×2 (09:43→20:10)
[2022-01-13] MEDS: ENOXAPARIN INJ 40 MG/0.4 ML SYR SQ SCH (09:52)
[2022-01-13] MEDS ORDERED: bisacodyL 10 MG SUPP PR PRN (10:17)
[2022-01-13] MEDS: oxyCODONE HCL IR 5 MG TAB (IMMEDIATE RELEASE) PO SCH ×3 (12:00→23:08)
[2022-01-13] MEDS: ACETAMINOPHEN 500 MG TAB PO SCH ×2 (14:09→22:17)
--- NOTE | 2022-01-13 14:59 | Orthopedic Consultation ---
Date of Consultation January 13, 2022 Assessment & Plan (1) Hip pain, left: Left hip pain secondarily to AVN s/p CRPP Left hip. Explained that Dr. Fernandes's treatment plan is correct and it was unfortunate that she was unable to complete the preop process previously. Also, explained that I do not preform VICKY. None of my partners who preform VICKY are available or in town. Spoke with Dr. Murillo, who preforms VICKY and will assume care and see the patient tomorrow. In the meantime: Continue care per primary service. TTWB with a walker. Present on Admission?: Yes History of Present Illness Reason for Consultation: Intractable Left hip pain Requesting Physician: Raymond Soni MD Attending Physician: Roxanne Quinonez MD History of Present Illness 61 year old female who fractured her left hip and under went CRPP by Dr. Fernandes August 2021. She was doing well until October or November 2021 where she started having increasing pain despite 4 weeks of PT. She was to have had VICKY December 2021 but missed getting preop lab work due to her pain. She had been seen in his office and was given a Toradol injection. She is on his schedule again in January 2022. She is having difficulty getting around with a walker and states she is dragging the leg behind her. She is having difficulty caring for herself. Allergies Allergy/AdvReac Type Severity Reaction Status Date / Time amoxicillin [From Augmentin] Allergy Severe cdif Verified 01/12/22 17:23 clavulanic acid Allergy Severe cdif Verified 01/12/22 17:23 [From Augmentin] sulfamethoxazole Allergy Severe Rash Verified 01/12/22 17:23 [From Bactrim] trimethoprim [From Bactrim] Allergy Severe Rash Verified 01/12/22 17:23 codeine AdvReac Severe "really Verified 01/12/22 17:23 sick" Home Medications Medication Instructions Recorded Confirmed Type omeprazole 20 mg capsule,delayed 20 mg PO QAM #90 caps 11/25/21 01/12/22 Rx release etodolac 500 mg tablet 500 mg PO BID 11/28/21 01/12/22 History multivitamin (Daily Multi-Vitamin) 1 tab PO QAM 11/28/21 01/12/22 History folic acid 1 mg tablet 1 mg PO QAM 12/01/21 01/12/22 History oxycodone-acetaminophen 5 mg-325 1 tab PO Q8H PRN Pain 12/01/21 01/12/22 History mg tablet alprazolam 0.5 mg tablet 0.5 mg PO BID #60 tabs 12/15/21 01/12/22 Rx paroxetine HCl 20 mg tablet 20 mg PO DAILY #30 tabs 12/15/21 01/12/22 Rx paroxetine HCl 40 mg tablet 40 mg PO DAILY #30 tabs 12/15/21 01/12/22 Rx magnesium oxide 400 mg PO DAILY #30 tabs 01/05/22 01/12/22 Rx ferrous sulfate 324 mg (65 mg 324 mg PO QAM 01/12/22 01/12/22 History iron) tablet,delayed release levothyroxine 88 mcg tablet 88 mcg PO DAILYBB 01/12/22 01/12/22 History (Synthroid) sennosides 8.6 mg tablet (senna) 8.6 mg PO BID 01/12/22 01/12/22 History Patient History Medical History Anxiety Depression Hx of fracture of left hip Hx of gastroesophageal reflux (GERD) Hypothyroidism Major depressive disorder Surgical History History of colonoscopy History of esophagogastroduodenoscopy (EGD) History of open reduction and internal fixation (ORIF) procedure left, pinning, done at [facility] History of tonsillectomy Hx of breast biopsy lt. Family History Mother Anxiety Bipolar disorder Heart disease Depression Breast cancer Father Bipolar disorder Lung disease Colorectal cancer Prostate cancer Social History Smoking Status: Current every day smoker Tobacco Type: Cigarettes Age Started Using Tobacco: 17; packs per day: 1; Cigarettes Per Day: 10-20/day; Second Hand Exposure: No; Do You Dip or Chew Tobacco: No; Tobacco Cessation Education Requested by Patient: No Hx Alcohol Use: Yes (quit in august) Alcohol type: beer Hx Substance Use: No Preferred Language: Setswana Communication Ability: Effective Visual Impairment: No Limitations Hearing Ability: Normal Take [employer] Required: No Beliefs That Will Affect Care: None marital status: Current Living Situation: Alone current occupational status: retired current occupation: Retired- [employer] Other Information That Helps Us Care for You: No Feels Safe at Home: Yes Safety Concerns: Feels Safe At This Time Childhood Exposure to Second-Hand Smoke: Yes caffeine: Yes (coffee ) Dental Care, Regularly: No Physical Activity Frequency: Does not Exercise Seatbelt Use: always Assistive Devices: Walker Review of Systems Review of Systems: All systems reviewed & are unremarkable except as noted in HPI & below Physical Exam Physical Exam: Patient is resting comfortably in bed with her left hip and knee flexed. Sensation to light touch intact distally. Moves toes and ankle. 2+ DP pulse. Calf soft and non-tender. Limited internal and external ROM of hip due to pain. Was able to gentle extend the hip so the leg was flat on the bed. Results & Data ([facility]) Vital Signs (Past 12 Hours) Vital Signs Temp Pulse Resp BP Pulse Ox O2 Del Method 01/13/22 07:09 36.5 C 107 H 20 134/78 91 Room Air Diagnostic Findings Laboratory Results WBC 7.61 K/ul (4.8-10.8) 01/13/22 06:34 RBC 3.81 M/uL (3.93-5.22) L 01/13/22 06:34 Hgb 11.8 g/dl (12.0-16.0) L 01/13/22 06:34 Hct 34.7 % (34.1-44.9) 01/13/22 06:34 MCV 91.1 fL (80.0-100.0) 01/13/22 06:34 MCH 31.0 pg (25.0-34.0) 01/13/22 06:34 MCHC 34.0 g/dL (32.0-36.0) 01/13/22 06:34 RDW Std Deviation 39.4 fL (36.4-46.3) 01/13/22 06:34 RDW Coeff of Roland 11.7 % (11.5-14.5) 01/13/22 06:34 Plt Count 337 K/uL (130-400) 01/13/22 06:34 MPV 9.4 fL (9.4-12.3) 01/13/22 06:34 Immature Gran % (Auto) 0.3 % 01/13/22 06:34 Neut % (Auto) 61.4 % 01/13/22 06:34 Lymph % (Auto) 23.3 % 01/13/22 06:34 [place] % (Auto) 10.6 % 01/13/22 06:34 Eos % (Auto) 3.0 % 01/13/22 06:34 Baso % (Auto) 1.4 % 01/13/22 06:34 Neut # (Auto) 4.67 K/uL (1.4-6.5) 01/13/22 06:34 Lymph # (Auto) 1.77 K/uL (1.2-3.4) 01/13/22 06:34 [place] # (Auto) 0.81 K/uL (0.24-0.82) 01/13/22 06:34 Eos # (Auto) 0.23 K/uL (0-0.50) 01/13/22 06:34 Baso # (Auto) 0.11 K/uL (0-0.2) 01/13/22 06:34 Immature Gran # (Auto) 0.02 K/uL (0.00-0.02) 01/13/22 06:34 PT 10.6 Seconds (9.0-12.0) 01/12/22 11:53 INR 1.0 (0.9-1.1) 01/12/22 11:53 APTT 28.7 Seconds (21.0-31.0) 01/12/22 11:53 PTT Ratio 1.0 01/12/22 11:53 Sodium 132 mmol/L (136-145) L 01/13/22 06:34 Potassium 4.0 mmol/L (3.5-5.1) D 01/13/22 06:34 Chloride 101 mmol/L (98-107) 01/13/22 06:34 Carbon Dioxide 25 mmol/L (21-32) 01/13/22 06:34 Anion Gap 6 (3-11) 01/13/22 06:34 BUN 9 mg/dl (6-23) 01/13/22 06:34 Creatinine 0.63 mg/dl (0.6-1.2) 01/13/22 06:34 Est Cr Clr Drug Dosing 74.1 ml/min 01/13/22 06:34 Est GFR ( Amer) 111.4 ml/min 01/13/22 06:34 Est GFR (Non-Af Amer) 96.1 ml/min 01/13/22 06:34 BUN/Creatinine Ratio 14.3 (10-20) 01/13/22 06:34 Glucose 84 mg/dl (70-99(Fasting)) 01/13/22 06:34 Calcium 9.5 mg/dl (8.5-10.1) 01/13/22 06:34 Magnesium 1.7 mg/dl (1.7-2.4) 01/13/22 06:34 Total Bilirubin 0.5 mg/dl (0.2-1.0) 01/12/22 11:53 AST 20 U/L (13-39) 01/12/22 11:53 ALT 16 U/L (7-52) 01/12/22 11:53 Alkaline Phosphatase 85 U/L (34-104) 01/12/22 11:53 Total Protein 7.7 gm/dl (6.0-8.3) 01/12/22 11:53 Albumin 4.0 gm/dl (3.4-5.0) 01/12/22 11:53 Globulin 3.7 gm/dl (2.5-4.0) 01/12/22 11:53 Albumin/Globulin Ratio 1.1 (0.9-2) 01/12/22 11:53 SARS-CoV-2, RNA, NAAT NEGATIVE (NEGATIVE) 01/12/22 15:11 Impressions Femur X-Ray 01/12/22 11:30 XR femur LT 2V routine, XR pelvis 1-2V routine CLINICAL HISTORY: L hip pain TECHNIQUE: 2 radiographic views of the left femur and one view of the pelvis were obtained. Comparison: None available at the time of this dictation. FINDINGS: Intertrochanteric screws are noted on the left. There is fragmentation and degenerative changes of the left femoral head. Mild degenerative changes are seen in the right hip joint, moderate degenerative changes are in the visualized lumbar spine. The soft tissues are unremarkable. IMPRESSION: Chronic changes are seen without definite evidence of acute fracture, noting limitation of an absence of prior radiographs available for comparison. Intertrochanteric screws are seen in the left femur with fragmentation and degeneration of the left hip joint. ACT 112: Negative or not required by law. Electronically signed by: Galindo Power M.D. 01/12/2022 12:44 PM Pelvis X-Ray 01/12/22 11:30 XR femur LT 2V routine, XR pelvis 1-2V routine CLINICAL HISTORY: L hip pain TECHNIQUE: 2 radiographic views of the left femur and one view of the pelvis were obtained. Comparison: None available at the time of this dictation. FINDINGS: Intertrochanteric screws are noted on the left. There is fragmentation and degenerative changes of the left femoral head. Mild degenerative changes are seen in the right hip joint, moderate degenerative changes are in the visualized lumbar spine. The soft tissues are unremarkable.
--- NOTE | 2022-01-13 17:24 | Hospitalist Progress Note ---
Date of Service January 13, 2022 Assessment & Plan (1) Left hip pain: Plan: - Imaging shows fragmentation and degeneration of left hip joint; reportedly AVN was seen though I am not finding that; regardless, left hip replacement was planned; at present severely incapacitated on account of pain; orthopedics consulted (unfortunately, her orthopedic surgeon does not round here) Pain control, bowel regimen (2) Hyponatremia: Plan: - Mild, can be followed (3) Hypomagnesemia: Plan: - Improvedfollow; while good thought no reason not to keep PPI at this levelswitched to PPI, history of ulcer bleed though remote (4) Anemia: Plan: - Chronic, on daily p.o. iron and folic acid supplementation. - Hgb near baseline today. (5) Hypothyroidism: Plan: - Continue levothyroxine 88 mcg daily. (6) Depression: Plan: - Continue paroxetine 60 mg daily. (7) Anxiety: Plan: - Continue alprazolam 0.5 mg twice daily, as needed. (8) Tobacco use: Plan: - Reports smoking 1 PPD; declines nicotine patch at this time. (9) Alcohol abuse: Plan: - History of per chart review, patient denies this. - Continue folic acid supplementation. Follow clinicallyintuitively low risk for withdrawal if alcohol abuse current but observe Plan - Admit to med/surg. - SCDs for VTE ppx. - Full Code. Admission and Anticipated Discharge Date Admission Date: January 12, 2022 Subjective Follow-up of presentation with left hip paincontinuing pain Physical Exam Physical Exam: Constitutional and general: No acute distress, looks biologic age Head and face: No puffiness, atraumatic Eyes: No scleral icterus, extraocular movements normal Neck: Supple, no JVD Skin/dermatologic/integument: No rash, no purpura Hematologic and lymphatic: pallor +, no petechia Gastrointestinal/abdomen: Nondistended, soft, nonacute Neurologic: Cranial nerves intact, nonfocal Psychiatry: Awake, alert, pleasant, communicative Cardiovascular: Heart rhythm regular, no rub, no murmur, no gallop Respiratory: Chest movements equal, no use of accessory muscles, no adventitious sounds Extremities: No edema, no cyanosis Results & Data Results & Data ([facility]) Vital Signs (Past 12 Hours) Vital Signs Temp Pulse Resp BP Pulse Ox O2 Del Method 01/13/22 07:09 36.5 C 107 H 20 134/78 91 Room Air Laboratory Results Laboratory Results - last 24 hr 01/13/22 01/13/22 06:34 06:34 WBC 7.61 RBC 3.81 L Hgb 11.8 L Hct 34.7 MCV 91.1 MCH 31.0 MCHC 34.0 RDW Std Deviation 39.4 RDW Coeff of Roland 11.7 Plt Count 337 MPV 9.4 Immature Gran % (Auto) 0.3 Neut % (Auto) 61.4 Lymph % (Auto) 23.3 [place] % (Auto) 10.6 Eos % (Auto) 3.0 Baso % (Auto) 1.4 Neut # (Auto) 4.67 Lymph # (Auto) 1.77 [place] # (Auto) 0.81 Eos # (Auto) 0.23 Baso # (Auto) 0.11 Immature Gran # (Auto) 0.02 Sodium 132 L Potassium 4.0 D Chloride 101 Carbon Dioxide 25 Anion Gap 6 BUN 9 Creatinine 0.63 Est Cr Clr Drug Dosing 74.1 Est GFR ( Amer) 111.4 Est GFR (Non-Af Amer) 96.1 BUN/Creatinine Ratio 14.3 Glucose 84 Calcium 9.5 Magnesium 1.7 PG Care Time/CCT Total # of Minutes Spent Total Time Spent with Patient: Total time spent is greater than 50% in coordination of care (as documented) at patient's floor/unit and/or counseling patient: Coding Level of Care Code 82011 Subseq Hosp Care Lvl 2 Diagnoses Left hip pain M25.552 Hyponatremia E87.1 Hypomagnesemia E83.42 Anemia D64.9 Hypothyroidism E03.9 Depression F32.9 Anxiety F41.9 Tobacco use Z72.0 Alcohol abuse F10.10
[2022-01-13] MEDS: CYCLOBENZAPRINE HCL 10 MG TAB PO PRN (18:41)
[2022-01-13] MEDS: LIDOCAINE 5% 1 PATCH TD SCH (20:09)
[2022-01-14] MEDS: MoRPHine SULFATE 4 MG/ML 1 ML CARP\\VIAL IV PRN ×2 (01:30→20:20)
[2022-01-14] MEDS: ACETAMINOPHEN 500 MG TAB PO SCH ×3 (05:26→22:00)
[2022-01-14] MEDS: oxyCODONE HCL IR 5 MG TAB (IMMEDIATE RELEASE) PO SCH ×3 (05:27→17:04)
[2022-01-14] MEDS: CYCLOBENZAPRINE HCL 10 MG TAB PO PRN ×2 (05:27→18:06)
[2022-01-14] MEDS: LEVOTHYROXINE SODIUM 88 MCG TABLET PO SCH (05:28)
--- NOTE | 2022-01-14 06:20 | Orthopedic Progress Note ---
Date of Service January 14, 2022 Assessment & Plan (1) Avascular necrosis of left femoral head: We discussed the diagnosis and treatment options at bedside today. I recommended removal of the hardware and conversion to a left total hip arthroplasty. She understands the risk, benefits, and alternatives to proced ures like to proceed. Time was spent department of the procedure and postoperative expectations. I plan to do the procedure tomorrow afternoon. She will be n.p.o. past midnight tonight. Britta Luz was seen and examined at bedside this morning. She is still having a lot of pain in the left hip. She is unable to straighten out her left hip. She has not been out of bed. She had no acute events overnight.. Review of Systems All systems reviewed & are unremarkable except as noted in HPI & below. Physical Exam Physical examination of the left hip, there is a lidocaine patch in the painful area. Her hip is flexed about 90 degrees. I did not do any range of motion with her hip.. Results & Data Results & Data Laboratory Results . Diagnostic Findings X-rays of the left hip are reviewed. There is avascular porosis and complete collapse of the femoral head. There is protrusion of the cancellous screws.. PG Care Time/CCT Total # of Minutes Spent Total Time Spent with Patient: Total time spent is greater than 50% in coordination of care (as documented) at patient's floor/unit and/or counseling patient: Coding Level of Care Code 69536 Subseq Hosp Care Lvl 2 (57 - DECISION FOR SURGERY) Diagnoses Avascular necrosis of left femoral head M87.052
[2022-01-14] MEDS: FOLIC ACID 1 MG TAB PO SCH (08:35)
[2022-01-14] MEDS: MAGNESIUM OXIDE 400 MG TAB PO SCH (08:35)
[2022-01-14] MEDS: POLYETHYLENE (MIRALAX) 17 GM PACK PO SCH (08:36)
[2022-01-14] MEDS: SENNA 8.6 MG TAB PO SCH ×2 (08:36→20:19)
[2022-01-14] MEDS: FERROUS SULFATE 325 MG TAB PO SCH (08:36)
[2022-01-14] MEDS: ENOXAPARIN INJ 40 MG/0.4 ML SYR SQ SCH (08:36)
[2022-01-14] MEDS: PARoxetine HCL 20 MG TAB PO SCH ×2 (08:36)
[2022-01-14] MEDS: ALPRAZolam 0.5 MG TABLET PO SCH ×2 (08:37→20:19)
[2022-01-14] MEDS: PANTOprazole 40 MG TAB PO SCH (10:00)
--- NOTE | 2022-01-14 13:17 | Anesthesiology Consultation ---
Date of Service January 14, 2022 Assessment & Plan (1) Encounter for pre-operative examination: Chart Review Chart Review: data entry specialist initiated History Surgery Operation Date: 01/15/22 13:15 Proposed Procedures p Left Hip Removal Hardware, Conversion to Total Hip Arthroplasty - Germán Murillo, Height/Weight Height: 5 ft 3 in Weight: 50.5 kg Allergies Allergy/AdvReac Type Severity Reaction Status Date / Time amoxicillin [From Augmentin] Allergy Severe cdif Verified 01/12/22 17:23 clavulanic acid Allergy Severe cdif Verified 01/12/22 17:23 [From Augmentin] sulfamethoxazole Allergy Severe Rash Verified 01/12/22 17:23 [From Bactrim] trimethoprim [From Bactrim] Allergy Severe Rash Verified 01/12/22 17:23 codeine AdvReac Severe "really Verified 01/12/22 17:23 sick" Medications Home Medications Medication Instructions Recorded Confirmed Last Taken omeprazole 20 mg capsule,delayed 20 mg PO QAM #90 caps 11/25/21 01/12/22 Unknown release etodolac 500 mg tablet 500 mg PO BID 11/28/21 01/12/22 Unknown multivitamin (Daily Multi-Vitamin) 1 tab PO QAM 11/28/21 01/12/22 Unknown folic acid 1 mg tablet 1 mg PO QAM 12/01/21 01/12/22 Unknown oxycodone-acetaminophen 5 mg-325 1 tab PO Q8H PRN Pain 12/01/21 01/12/22 Unknown mg tablet alprazolam 0.5 mg tablet 0.5 mg PO BID #60 tabs 12/15/21 01/12/22 Unknown paroxetine HCl 20 mg tablet 20 mg PO DAILY #30 tabs 12/15/21 01/12/22 Unknown paroxetine HCl 40 mg tablet 40 mg PO DAILY #30 tabs 12/15/21 01/12/22 Unknown magnesium oxide 400 mg PO DAILY #30 tabs 01/05/22 01/12/22 Unknown ferrous sulfate 324 mg (65 mg 324 mg PO QAM 01/12/22 01/12/22 Unknown iron) tablet,delayed release levothyroxine 88 mcg tablet 88 mcg PO DAILYBB 01/12/22 01/12/22 Unknown (Synthroid) sennosides 8.6 mg tablet (senna) 8.6 mg PO BID 01/12/22 01/12/22 Unknown Active Medications Generic Name Dose Route Start Last Admin Trade Name Magaly PRN Reason Stop Dose Admin Acetaminophen 1,000 mg 01/13/22 14:00 01/14/22 05:26 Acetaminophen 500 Mg Tab PO 02/12/22 13:59 1,000 mg Q8 HAO Administration Alprazolam 0.5 mg 01/12/22 21:00 01/14/22 08:37 Alprazolam 0.5 Mg Tablet PO 02/11/22 20:59 0.5 mg BID HAO Administration Cyclobenzaprine HCl 10 mg 01/13/22 17:59 01/14/22 05:27 Cyclobenzaprine Hcl 10 Mg Tab PO 02/12/22 20:59 10 mg TID PRN Administration muscle spasms Enoxaparin Sodium 40 mg 01/13/22 09:45 01/14/22 08:36 Enoxaparin Inj 40 Mg/0.4 Ml Syr SQ 02/12/22 09:44 40 mg Q24H HAO Administration Ferrous Sulfate 325 mg 01/13/22 09:00 01/14/22 08:36 Ferrous Sulfate 325 Mg Tab PO 02/12/22 08:59 325 mg QAM HAO Administration Folic Acid 1 mg 01/13/22 09:00 01/14/22 08:35 Folic Acid 1 Mg Tab PO 02/12/22 08:59 1 mg QAM HAO Administration Levothyroxine Sodium 88 mcg 01/13/22 06:30 01/14/22 05:28 Levothyroxine Sodium 88 Mcg Tablet PO 02/12/22 06:29 88 mcg DAILYBB HAO Administration Lidocaine 1 patch 01/12/22 21:00 01/13/22 20:09 Lidocaine 5% 1 Patch TD 02/11/22 20:59 1 patch Q24H HAO Administration Magnesium Oxide 400 mg 01/13/22 09:00 01/14/22 08:35 Magnesium Oxide 400 Mg Tab PO 02/12/22 08:59 400 mg DAILY HAO Administration Miscellaneous 1 each 01/13/22 09:00 01/14/22 08:38 Remove Lidoderm Patch N/A 02/12/22 08:59 1 each Q24H HAO Administration Morphine Sulfate 4 mg 01/12/22 20:11 01/14/22 01:30 Morphine Sulfate 4 Mg/Ml 1 Ml Carp\\Vial IV 01/26/22 20:10 4 mg Q3H PRN Administration Pain (6,7,8,9,10) Oxycodone HCl 5 mg 01/13/22 12:00 01/14/22 12:30 Oxycodone Hcl Ir 5 Mg Tab (Immediate Release) PO 01/27/22 11:59 5 mg Q6 HAO Administration Pantoprazole Sodium 40 mg 01/14/22 09:00 01/14/22 10:00 Pantoprazole 40 Mg Tab PO 02/13/22 08:59 40 mg QAM HAO Administration Paroxetine HCl 20 mg 01/13/22 09:00 01/14/22 08:36 Paroxetine Hcl 20 Mg Tab PO 02/12/22 08:59 20 mg DAILY HAO Administration Paroxetine HCl 40 mg 01/13/22 09:00 01/14/22 08:36 Paroxetine Hcl 20 Mg Tab PO 02/12/22 08:59 40 mg DAILY HAO Administration Polyethylene Glycol 17 gm 01/14/22 09:00 01/14/22 08:36 Polyethylene (Miralax) 17 Gm Pack PO 02/13/22 08:59 Not Given DAILY HAO Sennosides 8.6 mg 01/12/22 21:00 01/14/22 08:36 Senna 8.6 Mg Tab PO 02/11/22 20:59 Not Given BID HAO Past Medical History Medical History Anxiety Depression Hx of fracture of left hip Hx of gastroesophageal reflux (GERD) Hypothyroidism Major depressive disorder Past Family History Family History Mother Anxiety Bipolar disorder Heart disease Depression Breast cancer Father Bipolar disorder Lung disease Colorectal cancer Prostate cancer Past Surgical History Surgical History History of colonoscopy History of esophagogastroduodenoscopy (EGD) History of open reduction and internal fixation (ORIF) procedure left, pinning, done at [place] History of tonsillectomy Hx of breast biopsy lt. Social History Smoking Status: Current every day smoker tobacco type: cigarettes Smoking cigarettes per day: 10-20/day Do You Dip or Chew Tobacco: No Hx Alcohol Use: Yes (quit in august) Alcohol type: beer alcohol intake frequency: other Alcohol Intake Frequency Comment: quit in august Substance Use: No substance use type: does not use Physical Exam Vital Signs Last Vital Signs Temp 98.2 F 01/14/22 07:53 Pulse 85 01/14/22 07:53 Resp 16 01/14/22 07:53 BP 97/58 L 01/14/22 07:53 Pulse Ox 95 01/14/22 07:53 O2 Del Method 01/14/22 07:53 Testing Laboratory Results 01/13/22 06:34 01/13/22 06:34 PT 10.6 Seconds (9.0-12.0) 01/12/22 11:53 INR 1.0 (0.9-1.1) 01/12/22 11:53 APTT 28.7 Seconds (21.0-31.0) 01/12/22 11:53 Electrocardiogram Date: 01/02/22 SR @ 93 bpm Possible left atrial enlargement
[2022-01-14] MEDS: MoRPHine SULFATE 2 MG/ML CARP IV PRN (13:49)
--- NOTE | 2022-01-14 17:02 | Hospitalist Progress Note ---
Date of Service January 14, 2022 Assessment & Plan (1) Left hip pain: Plan: Symptomatically doing better; removal of hardware and hip arthroplasty planned in a.m.; tourist information assistant greatly appreciated (2) Hyponatremia: Plan: Mild, follow (3) Hypomagnesemia: Plan: Improved as of last check, repeat in a.m. (4) Anemia: Plan: Chronic and stable as per last checkfollow (5) Hypothyroidism: Plan: Last TSH not at goal, free T4 normal, no change made at presentPCP follow-up (6) Depression: Plan: Home therapy (7) Anxiety: Plan: Home therapy (8) Tobacco use: Plan: Cessation recommended (9) Alcohol abuse: Plan: As noted in HPI, no clinical withdrawalfollow Admission and Anticipated Discharge Date Admission Date: January 12, 2022 Subjective Follow-up of presentation with left hip paindoing better with current therapy; surgery planned in a.m. Results & Data Results & Data ([facility]) Vital Signs (Past 12 Hours) Vital Signs Temp Pulse Pulse Resp BP BP Pulse Ox 01/14/22 14:55 36.4 C L 79 16 126/75 96 01/14/22 07:53 36.8 C 85 16 97/58 L 95 O2 Del Method 01/14/22 14:55 Room Air 01/14/22 07:53 Room Air PG Care Time/CCT Total # of Minutes Spent Total Time Spent with Patient: Total time spent is greater than 50% in coordination of care (as documented) at patient's floor/unit and/or counseling patient: Coding Level of Care Code 13588 Subseq Hosp Care Lvl 2 Diagnoses Left hip pain M25.552 Hyponatremia E87.1 Hypomagnesemia E83.42 Anemia D64.9 Hypothyroidism E03.9 Depression F32.9 Anxiety F41.9 Tobacco use Z72.0 Alcohol abuse F10.10
[2022-01-14] MEDS: THIAMINE HCL 100 MG TAB PO SCH (19:02)
[2022-01-14] MEDS: LIDOCAINE 5% 1 PATCH TD SCH (20:19)
[2022-01-15] MEDS: oxyCODONE HCL IR 5 MG TAB (IMMEDIATE RELEASE) PO SCH ×3 (00:30→12:38)
[2022-01-15] MEDS: ACETAMINOPHEN 500 MG TAB PO SCH ×3 (06:04→21:54)
[2022-01-15] MEDS: LEVOTHYROXINE SODIUM 88 MCG TABLET PO SCH (06:04)
[2022-01-15] MEDS: MAGNESIUM SULFATE / D5W 1 GM/100 ML BAG IV SCH ×2 (07:38→09:48)
[2022-01-15] MEDS: POLYETHYLENE (MIRALAX) 17 GM PACK PO SCH (07:45)
[2022-01-15] MEDS: FERROUS SULFATE 325 MG TAB PO SCH (07:45)
[2022-01-15] MEDS: MoRPHine SULFATE 4 MG/ML 1 ML CARP\\VIAL IV PRN (07:59)
[2022-01-15] MEDS: SENNA 8.6 MG TAB PO SCH ×2 (08:55→20:31)
[2022-01-15] MEDS: PARoxetine HCL 20 MG TAB PO SCH ×2 (08:55→08:56)
[2022-01-15] MEDS: PANTOprazole 40 MG TAB PO SCH (08:56)
[2022-01-15] MEDS: THIAMINE HCL 100 MG TAB PO SCH (08:56)
[2022-01-15] MEDS: MAGNESIUM OXIDE 400 MG TAB PO SCH (08:56)
[2022-01-15] MEDS: FOLIC ACID 1 MG TAB PO SCH (08:56)
[2022-01-15] MEDS: ALPRAZolam 0.5 MG TABLET PO SCH ×2 (08:59→20:33)
[2022-01-15] MEDS ORDERED: BUPIVACAINE 0.5 % 5 MG/1 ML PF 10ML VIAL ONE (11:54)
--- NOTE | 2022-01-15 13:03 | History & Physical Bridge Note ---
Date of Service January 15, 2022 History & Physical Bridge Note I have examined the patient, reviewed the History & Physical and in the interval since the performance of the History & Physical I have noted the following changes of clinical significance: no changes noted
[2022-01-15] MEDS ORDERED: PROPOFOL IV EMULSION 10 MG/ML 20 ML VIAL IV ONE ×2 (13:28→13:33)
[2022-01-15] MEDS ORDERED: ceFAZolin 1000MG 1,000 MG/7.5 ML SYR IV SCH (13:30)
[2022-01-15] MEDS ORDERED: fentaNYL citrate 100 MCG/2 ML VIAL ONE (13:34)
[2022-01-15] MEDS ORDERED: MIDAZOLAM HCL 1 MG/ML 2ML VIAL ONE (13:34)
[2022-01-15] MEDS ORDERED: TRANEXAMIC ACID / 0.7% NACL 1,000 MG/100 ML BAG IV ONE ×2 (13:39)
[2022-01-15] MEDS ORDERED: TRANEXAMIC ACID / 0.7% NACL 1000MG/100ML BAG IV ONE (13:42)
[2022-01-15] MEDS ORDERED: LIDOCAINE 2% MPF LOCAL 5 ML VIAL INFIL ONE (13:56)
[2022-01-15] MEDS ORDERED: ROCURONIUM BROMIDE 10 MG/ML 5 ML VIAL IV ONE (13:57)
[2022-01-15] MEDS ORDERED: HYDROmorphone INJ 2 MG/ML SYR/VIAL ONE (14:32)
[2022-01-15] MEDS ORDERED: ALBUMIN HUMAN 5% 12.5 GM/250 ML VIAL IV ONE (15:15)
--- NOTE | 2022-01-15 15:24 | Hospitalist Progress Note ---
Date of Service January 15, 2022 Assessment & Plan (1) Left hip pain: Plan: Symptomatically doing better; removal of hardware and hip arthroplasty today; orthopedic assistance greatly appreciated (2) Hyponatremia: Plan: Mild, follow intermittently. (3) Hypomagnesemia: Plan: Replace, as appropriate (4) Anemia: Plan: Chronic and stable as per last checkfollow (5) Hypothyroidism: Plan: Last TSH not at goal, free T4 normal, no change made at presentPCP follow-up (6) Depression: Plan: Home therapy (7) Anxiety: Plan: Home therapy (8) Tobacco use: Plan: Cessation recommended (9) Alcohol abuse: Plan: As noted in HPI, no clinical withdrawalfollow Admission and Anticipated Discharge Date Admission Date: January 12, 2022 Subjective Follow-up of presentation with left hip painawaiting OR when seen in a.m. during rounds Physical Exam Physical Exam: Constitutional and general: No acute distress, looks biologic age Head and face: No puffiness, atraumatic Eyes: No scleral icterus, extraocular movements normal Neck: Supple, no JVD Skin/dermatologic/integument: No rash, no purpura Hematologic and lymphatic: pallor +, no petechia Gastrointestinal/abdomen: Nondistended, soft, nonacute Neurologic: Cranial nerves intact, nonfocal Psychiatry: Awake, alert, pleasant, communicative Cardiovascular: Heart rhythm regular, no rub, no murmur, no gallop Respiratory: Chest movements equal, no use of accessory muscles, no adventitious sounds Extremities: No edema, no cyanosis Results & Data Results & [facility] ([facility]) Vital Signs (Past 12 Hours) Vital Signs Temp Pulse Resp BP Pulse Ox O2 Del Method 01/15/22 13:01 36.4 C L 88 18 116/69 96 Room Air 01/15/22 08:00 Room Air 01/15/22 07:18 36.7 C 94 H 20 121/71 94 Room Air PG Care Time/CCT Total # of Minutes Spent Total Time Spent with Patient: Total time spent is greater than 50% in coordination of care (as documented) at patient's floor/unit and/or counseling patient: Coding Level of Care Code 00765 Subseq Hosp Care Lvl 2 Diagnoses Left hip pain M25.552 Hyponatremia E87.1 Hypomagnesemia E83.42 Anemia D64.9 Hypothyroidism E03.9 Depression F32.9 Anxiety F41.9 Tobacco use Z72.0 Alcohol abuse F10.10
[2022-01-15] MEDS ORDERED: PHENYLEPHRINE HCL 10 MG/ML VIAL ONE (15:48)
[2022-01-15] MEDS ORDERED: ATROPINE SULFATE 0.1 MG/ML 10ML SYR IV PRN (16:12)
[2022-01-15] MEDS ORDERED: NALOXONE HCL 0.4 MG/1 ML VIAL/CARP IV PRN ×2 (16:12→17:48)
[2022-01-15] MEDS ORDERED: PROMETHAZINE HCL 12.5 MG in SODIUM CHLORIDE 0.9% 50 ML IV PRN (16:12)
[2022-01-15] MEDS ORDERED: ONDANSETRON INJ 2 MG/ML 2 ML VIAL IV PRN (16:12)
[2022-01-15] MEDS ORDERED: FLUMAZENIL 0.1 MG/1 ML 10 ML VIAL IV PRN (16:12)
[2022-01-15] MEDS ORDERED: GLYCOPYRROLATE 0.2 MG/ML VIAL ONE ×2 (16:12)
[2022-01-15] MEDS ORDERED: ePHEDrine sulfate 50 MG/ML AMP IV PRN (16:12)
[2022-01-15] MEDS ORDERED: LABETALOL HCL IV 5 MG/ML 20ML IV PRN (16:12)
--- NOTE | 2022-01-15 16:28 | Operative Report ---
PG Post Operative Report Pre & Post Diagnosis Operation Date: 01/15/22 13:15 Pre-Op Diagnosis: Avascular necrosis of the left femoral head with protrusion of hardware Post-Op Diagnosis: Avascular necrosis of the left femoral head with protrusion of hardware I identified the patient and participated in the time-out.: Yes Procedure Operation Date: 01/15/22 13:15 Actual Procedures p Left Hip Removal Hardware, Conversion to Total Hip Arthroplasty(Left) - Germán Murillo DO Surgeon Germán Murillo DO Technical Sme Grady Mcneill PA-C Estimated Blood Loss 300 Findings Consistent with Post-Op Diagnosis Specimens Left femoral head Description of Procedure Implants used: Biomet G7 acetabulum size 44 with 3 6.5 millimeter screws and a 28 mm polyethylene liner, a Biomet Melvin size 13 standard stem and a 28 mm femoral head with a +3 neck On January 15, 2022 Sukh was brought down from her hospital bed to the preoperative holding area. The operative extremity identified and signed. She is given a preoperative antibiotic and TXA. She is taken to the operative room laid on the table in supine position and put under general anesthesia. The left hip was then prepped and draped in sterile fashion. A timeout was done. The patient and the operative extremity was properly identified. The left hip was extremely tight. I had trouble even abducting or 10 degrees. She had a flexion contracture of her hamstrings and I cannot fully extend her knee even while she was asleep. A lateral approach was used. Dissection was taken down to the fascia and the IT band was incised longitudinally. The abductors were exposed. The anterior third of the abductors were tenotomized off the greater trochanter. The capsule was excised. The femoral head was exposed. All 4 Elizabeth cancellous screws were then removed. This completed the removal of hardware. The femoral neck was then resected. The acetabulum was then exposed. Time was spent doing a complete circumferential capsular labral release. The acetabulum was very small. I was only able to ream up to a size 43 reamer. There was a small protrusio. Reamings were placed in the the base of the acetabulum and a 44 mm G7 cup was impacted into place. I was able to get an excellent press-fit. 3 screws were then placed. The middle screw was able to get excellent fixation. A 28 mm polyethylene liner was then placed. The proximal femur was then exposed. Sequential reaming up to a size 13.5 reamer was done. Sequential broaching up to a size 13 broach was then done. A 28 mm head with a +3 neck was then trialed. The hip was then reduced. A single flatplate x-ray was taken. I was happy with the sizing of the. The hip was then dislocated. The broach was removed. The final Melvin 1 piece stem was then impacted into place. The final size 28 mm ceramic head with a +3 neck was then impacted into place. The hip was then reduced. The hip felt to be stable. It was difficult to take the hip through a full range of motion because she was still so tight in her adductors and her hamstrings. The wound was then irrigated. The abductors were then tenodesed back to the greater trochanter with transosseous FiberWire sutures and side to side sutures. The IT band was then closed with #1 Vicryl suture. Skin was closed with 2-0 Vicryl and sallie. A Silverlon dressing was placed. She was then extubated and transferred to a hospital bed. She was taken to the postanesthesia care unit in stable condition. She tolerated the procedure well. Grady Mcneill PA-C, was present for the entire procedure. He was critical for patient positioning, prepping, draping, retraction exposure, wound closure and application of sterile dressing. I attest to the content of the Intraoperative Record and any orders documented therein. Any exceptions are noted below.
[2022-01-15] MEDS ORDERED: ESMOLOL HCL INJ 10 MG/ML 10ML VIAL IV ONE (16:32)
[2022-01-15] MEDS: fentaNYL citrate 100 MCG/2 ML VIAL IV PRN ×4 (16:39→16:55)
[2022-01-15] MEDS ORDERED: HYDROmorphone INJ 1 MG/ML SYRINGE ONE (17:06)
[2022-01-15 17:07] LABS: Hematocrit (blood only) 29.5 % (34.1-44.9); Hemoglobin 10.1 g/dl (12.0-16.0)
--- NOTE | 2022-01-15 17:07 | XRay Report ---
AP PELVIS, AP AND CROSSTABLE LATERAL LEFT HIP History: Left total hip arthroplasty. Degenerative arthritis. Postop. FINDINGS: The patient is status post a left total hip arthroplasty. The hardware is intact. No fractu re or dislocation. Skin sallie are in place. IMPRESSION: Left total hip arthroplasty. No evidence for hardware complication. ACT 112: Negative or not required by law. Electronically signed by: Ronnie Berg M.D. 01/15/2022 5:05 PM
--- NOTE | 2022-01-15 17:13 | XRay Report ---
XR hip LT 1V CLINICAL HISTORY: LT HARDWARE REMOVAL CONVERT TO TOTAL HIP ARTHROPLASTY. COMPARISON STUDY: Left femur 01/12/2022. FINDINGS: Intraoperative study for left total hip arthroplasty. The hardware appears intact. No fract ure or dislocation within the left hip. IMPRESSION: Intraoperative study for left total hip arthroplasty. ACT 112: Negative or not required by law. Electronically signed by: Ronnie Berg M.D. 01/15/2022 5:10 PM
--- NOTE | 2022-01-15 17:32 | Anesthesiology Progress Note ---
Date of Service January 15, 2022 Anesthesia Post Procedure Vital Signs Vital Signs: Temp Pulse Pulse Pulse Resp BP BP 01/15/22 17:10 104 H 15 108/57 L 01/15/22 17:00 115 H 14 114/57 L 01/15/22 16:50 108 H 20 107/56 L 01/15/22 16:40 102 H 17 118/65 01/15/22 16:33 37.5 C 101 H 16 115/70 01/15/22 13:01 36.4 C L 88 18 116/69 01/15/22 08:00 01/15/22 07:18 36.7 C 94 H 20 121/71 01/14/22 22:31 36.9 C 92 H 18 108/65 01/14/22 20:32 Pulse Ox O2 Del Method O2 Flow Rate 01/15/22 17:10 96 Nasal Cannula 3 01/15/22 17:00 99 Oxymask 3 01/15/22 16:50 97 Oxymask 3 01/15/22 16:40 100 Oxymask 5 01/15/22 16:33 97 Oxymask 5 01/15/22 13:01 96 Room Air 01/15/22 08:00 Room Air 01/15/22 07:18 94 Room Air 01/14/22 22:31 92 Room Air 01/14/22 20:32 Room Air Pain Intensity Left Hip: Pain Intensity: 6 Transfer of Care Handoff Completed per policy Notes Mental Status: alert / awake / arousable Patient Amnestic to Procedure: Yes Nausea / Vomiting: adequately controlled Pain: adequately controlled Airway Patency, RR, SpO2: stable & adequate BP & HR: stable & adequate Hydration State: stable & adequate Anesthetic Complications: no major complications apparent
[2022-01-15] MEDS: SODIUM CHLORIDE 0.9% 1000ML 1,000 ML IV SCH (17:55)
[2022-01-15] MEDS: KETOROLAC TROMETHAMINE 15 MG/ML VIAL IV SCH (18:48)
[2022-01-15] MEDS: CYCLOBENZAPRINE HCL 10 MG TAB PO PRN (18:53)
[2022-01-15] MEDS: oxyCODONE HCL IR 5 MG TAB (IMMEDIATE RELEASE) PO PRN (20:28)
[2022-01-15] MEDS: ASPIRIN 81 MG ECTAB PO SCH (20:29)
[2022-01-15] MEDS: LIDOCAINE 5% 1 PATCH TD SCH (20:30)
[2022-01-15] MEDS: ceFAZolin 1000MG 1,000 MG/7.5 ML SYR IV SCH (21:53)
[2022-01-15] MEDS: MoRPHine SULFATE 2 MG/ML CARP IV PRN (22:00)
[2022-01-16] MEDS: KETOROLAC TROMETHAMINE 15 MG/ML VIAL IV SCH ×5 (01:16→23:50)
[2022-01-16] MEDS: SODIUM CHLORIDE 0.9% 1000ML 1,000 ML IV SCH (04:17)
[2022-01-16] MEDS: oxyCODONE HCL IR 5 MG TAB (IMMEDIATE RELEASE) PO PRN ×2 (04:20→11:10)
[2022-01-16] MEDS: LEVOTHYROXINE SODIUM 88 MCG TABLET PO SCH (05:50)
[2022-01-16] MEDS: ceFAZolin 1000MG 1,000 MG/7.5 ML SYR IV SCH (05:50)
[2022-01-16] MEDS: ACETAMINOPHEN 500 MG TAB PO SCH ×3 (05:52→21:26)
[2022-01-16 06:27] LABS: Basophils # (auto) 0.05 K/uL (0-0.2); Basophils % (auto) 0.6 %; Eosinophils # (auto) 0.05 K/uL (0-0.50); Eosinophils % (auto) 0.6 %; Hematocrit (blood only) 27.1 % (34.1-44.9); Hemoglobin 9.1 g/dl (12.0-16.0); Immature Granulocytes # (auto) 0.03 K/uL (0.00-0.02); Immature Granulocytes % (auto) 0.4 %; Lymphocytes # (auto) 0.97 K/uL (1.2-3.4); Mean Corpuscular Hemoglobin 30.3 pg (25.0-34.0); Mean Corpuscular Hgb Conc 33.6 g/dL (32.0-36.0); Mean Corpuscular Volume 90.3 fL (80.0-100.0); Mean Platelet Volume 9.4 fL (9.4-12.3); Monocytes # (auto) 0.71 K/uL (0.24-0.82); Monocytes % (auto) 8.8 %; Neutrophils # (auto) 6.28 K/uL (1.4-6.5); Neutrophils % (auto) 77.6 %; Platelet Count 276 K/uL (130-400); RDW Coefficient of Variation 11.6 % (11.5-14.5); White Blood Count 8.09 K/ul (4.8-10.8)
[2022-01-16 07:07] LABS: Calcium 8.2 mg/dl (8.5-10.1); Creatinine Clr Calc Pharmacy 58.9 ml/min; Est GFR (Non-African American) 80.2 ml/min; Potassium 3.8 mmol/L (3.5-5.1)
[2022-01-16] MEDS: POLYETHYLENE (MIRALAX) 17 GM PACK PO SCH (08:20)
[2022-01-16] MEDS: ASPIRIN 81 MG ECTAB PO SCH ×2 (08:21→21:27)
[2022-01-16] MEDS: FERROUS SULFATE 325 MG TAB PO SCH (08:21)
[2022-01-16] MEDS: MAGNESIUM OXIDE 400 MG TAB PO SCH (08:21)
[2022-01-16] MEDS: PARoxetine HCL 20 MG TAB PO SCH ×2 (08:21→08:23)
[2022-01-16] MEDS: SENNA 8.6 MG TAB PO SCH ×2 (08:21→21:27)
[2022-01-16] MEDS: THIAMINE HCL 100 MG TAB PO SCH (08:22)
[2022-01-16] MEDS: PANTOprazole 40 MG TAB PO SCH (08:22)
[2022-01-16] MEDS: FOLIC ACID 1 MG TAB PO SCH (08:22)
[2022-01-16] MEDS: ALPRAZolam 0.5 MG TABLET PO SCH ×2 (08:33→21:26)
[2022-01-16] MEDS: MoRPHine SULFATE 2 MG/ML CARP IV PRN ×2 (08:33→12:58)
[2022-01-16] MEDS: CYCLOBENZAPRINE HCL 10 MG TAB PO PRN (08:33)
--- NOTE | 2022-01-16 10:13 | Urology Consultation ---
Date of Consultation January 16, 2022 Assessment & Plan (1) Postoperative urinary retention: Plan 61 y/o F who is s/p Left Hip Removal Hardware, Conversion to Total Hip Arthroplasty on 01/15/2022. Urology consulted for postop urinary retention, Jimenez cath placement. - Pt with difficulty voiding postoperatively, bladder scanned overnight for 513 mL. - Nursing attempted catheter placement at bedside, however this was unsuccessful. - At time of exam, patient preferred to avoid catheter placement and wished to trial voiding on her own again. - Recommended bladder scan after next void and discussed that if she continues to retain urine, our recommendation would be for placement of Jimenez catheter. - Will reassess this afternoon. - Pt reassessed at 1200. Per nursing, pt still unable to void. - Discussed with pt our recommendation is for Jimenez cath placement. Pt agreeable. - 16Fr Jimenez cath placed at bedside using sterile technique without difficulty with immediate return of clear yellow urine. Pt tolerated well. - Maintain Jimenez catheter for ~5-7 days to allow bladder rest, after which voiding trial can be performed. - Will arrange outpatient follow-up with our service. - Urology will sign-off. Please contact us with any further questions, concerns, or changes in patient's status. Supervising Physician Co-Signing Physician Notes Discussed patient with JAYLEEN. Agree with plan. History of Present Illness Reason for Consultation: Postop urinary retention, Jimenez catheter placement Attending Physician: Germán Murillo DO History of Present Illness The patient is a 61-year-old female with a past medical history significant for hypothyroidism, GERD, tobacco use, alcohol use, depression, and anxiety who presented to the ED a few days ago with worsening hip pain. She is status post Left Hip Removal Hardware, Conversion to Total Hip Arthroplasty on 01/15/[address] Murillo. Following her surgery, she was noted to have difficulty with urination and voiding small amounts. She was bladder scanned for 513 mL ove rnight. Nursing attempted catheter placement, however this was unsuccessful. Urology consulted for urinary retention, Jimenez catheter placement. Patient examined at bedside this AM. Awake, resting in bed on arrival. No acute distress. States she has urinated small amounts overnight and this morning. Notes some incontinence, which is her baseline. Denies urgency or frequency at present. Denies suprapubic pain or pressure. Denies hematuria or dysuria. Reports at baseline, she has some urinary urgency and incontinence. Typically wears a protective pad. Often does not feel the urge to go. States she has seen a urologist in the past for urinary symptoms, but does not recall details. Not currently on any urinary medications. States she has tried medications in the past given by PCP, but these were not helpful. Patient states she would like to avoid catheter placement if possible. Reports she sometimes has difficulty with emptying her bladder and preferred to give it a little more time to see if she was able to void on her own. No additional complaints at time of exam. Family history noncontributory Allergies Allergy/AdvReac Type Severity Reaction Status Date / Time amoxicillin [From Augmentin] Allergy Severe cdif Verified 01/12/22 17:23 clavulanic acid Allergy Severe cdif Verified 01/12/22 17:23 [From Augmentin] sulfamethoxazole Allergy Severe Rash Verified 01/12/22 17:23 [From Bactrim] trimethoprim [From Bactrim] Allergy Severe Rash Verified 01/12/22 17:23 codeine AdvReac Severe "really Verified 01/12/22 17:23 sick" Home Medications Medication Instructions Recorded Confirmed Type omeprazole 20 mg capsule,delayed 20 mg PO QAM #90 caps 11/25/21 01/12/22 Rx release etodolac 500 mg tablet 500 mg PO BID 11/28/21 01/12/22 History multivitamin (Daily Multi-Vitamin) 1 tab PO QAM 11/28/21 01/12/22 History folic acid 1 mg tablet 1 mg PO QAM 12/01/21 01/12/22 History oxycodone-acetaminophen 5 mg-325 1 tab PO Q8H PRN Pain 12/01/21 01/12/22 History mg tablet alprazolam 0.5 mg tablet 0.5 mg PO BID #60 tabs 12/15/21 01/12/22 Rx paroxetine HCl 20 mg tablet 20 mg PO DAILY #30 tabs 12/15/21 01/12/22 Rx paroxetine HCl 40 mg tablet 40 mg PO DAILY #30 tabs 12/15/21 01/12/22 Rx magnesium oxide 400 mg PO DAILY #30 tabs 01/05/22 01/12/22 Rx ferrous sulfate 324 mg (65 mg 324 mg PO QAM 01/12/22 01/12/22 History iron) tablet,delayed release levothyroxine 88 mcg tablet 88 mcg PO DAILYBB 01/12/22 01/12/22 History (Synthroid) sennosides 8.6 mg tablet (senna) 8.6 mg PO BID 01/12/22 01/12/22 History Patient History Medical History Anxiety Depression Hx of fracture of left hip Hx of gastroesophageal reflux (GERD) Hypothyroidism Major depressive disorder Surgical History History of colonoscopy History of esophagogastroduodenoscopy (EGD) History of open reduction and internal fixation (ORIF) procedure left, pinning, done at [place] History of tonsillectomy Hx of breast biopsy lt. Family History Mother Anxiety Bipolar disorder Heart disease Depression Breast cancer Father Bipolar disorder Lung disease Colorectal cancer Prostate cancer Social History Smoking Status: Current every day smoker Tobacco Type: Cigarettes Age Started Using Tobacco: 17; packs per day: 1; Cigarettes Per Day: 10-20/day; Second Hand Exposure: No; Hx Alcohol Use: Yes (quit in august) Alcohol type: beer Hx Substance Use: No Preferred Language: Yakut Communication Ability: Effective Visual Impairment: No Limitations Hearing Ability: Normal Youth Minister Required: No Beliefs That Will Affect Care: None marital status: Current Living Situation: Alone current occupational status: retired current occupation: Retired- [employer] Feels Safe at Home: Yes Childhood Exposure to Second-Hand Smoke: Yes caffeine: Yes (coffee ) Dental Care, Regularly: No Physical Activity Frequency: Does not Exercise Seatbelt Use: always Assistive Devices: Walker Review of Systems Review of Systems: All systems reviewed & are unremarkable except as noted in HPI & below Physical Exam Constitutional: no acute distress Neck: normal visual inspection Respiratory: no respiratory distress and no labored breathing Gastrointestinal (Abdomen): Inspection/Auscultation: abdomen normal to in spection Percussion/Palpation: abdomen soft; abdomen nontender and no guarding Musculoskeletal: Head/Neck/Chest: normocephalic Skin: Warm and dry Neurologic: awake Psychiatric: Orientation: alert, oriented x 3 and cooperative Results & Data ([facility]) Vital Signs (Past 12 Hours) Vital Signs Temp Pulse Pulse Resp BP BP Pulse Ox 01/16/22 07:19 36.9 C 116 H 18 126/67 95 01/16/22 02:05 36.6 C 104 H 18 109/64 95 01/15/22 23:14 36.8 C 108 H 16 106/60 96 O2 Del Method 01/16/22 07:19 01/16/22 02:05 Room Air 01/15/22 23:14 Room Air PG Care Time/CCT Total # of Minutes Spent Total Time Spent with Patient: Total time spent is greater than 50% in coordination of care (as documented) at patient's floor/unit and/or counseling patient: Coding Level of Care Code 42169 Office/OBS Consult Lvl 3 Diagnoses Postoperative urinary retention N99.89; R33.8
--- NOTE | 2022-01-16 16:18 | Orthopedic Progress Note ---
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 The previous hardware did protrusio some into her pelvis so I want to her to be touch toe weightbearing for now. Her bigger problem will be working on extension of the pelvis and the knee. I will talk to physical therapy personally about this. She really needs to work at extending her hip flexors and stretching her hamstrings. She can be touch toe weightbearing for now. She is on aspirin for DVT prophylaxis. She will likely require rehab to a SNF facility. Britta Luz was seen and examined at bedside this morning. Her hip is sore but the pain is better today. She still having trouble with flexion contractures of her hip and her knee. She was seen by physical therapy today. She has no new complaints.. Review of Systems All systems reviewed & are unremarkable except as noted in HPI & below. Physical Exam On physical examination of left hip, she is lying there with her hip flexed about 60 degrees in her knee flexed about 90 degrees. She has active d orsiflexion plantarflexion of her left ankle. The dressing is clean and dry.. Results & Data Results & Data Laboratory Results . Diagnostic Findings Postoperative x-rays of the left hip show the prosthesis to be in good alignment without any evidence of fracture, screws, or loosening.. PG Care Time/CCT Total # of Minutes Spent Total Time Spent with Patient: Total time spent is greater than 50% in coordination of care (as documented) at patient's floor/unit and/or counseling patient: Coding Level of Care Code 46571 Post Operative Follow-Up Diagnoses Status post left hip replacement Z96.642
--- NOTE | 2022-01-16 18:07 | Hospitalist Progress Note ---
Date of Service January 16, 2022 Assessment & Plan (1) Left hip pain: Plan: Status post hip replacement; orthopedic has resumed care (2) Hyponatremia: Plan: Mild, follow intermittently. (3) Hypomagnesemia: Plan: A bit more impressive, asymptomatic; fluid restriction (4) Anemia: Plan: Some expected acute postop blood loss anemiafollow from our perspective (5) Hypothyroidism: Plan: Last TSH not at goal, free T4 normal, no change made at presentPCP follow-up (6) Depression: Plan: Home therapy (7) Anxiety: Plan: Home therapy (8) Tobacco use: Plan: Cessation recommended (9) Alcohol abuse: Plan: As noted in HPI, no clinical withdrawalfollow Admission and Anticipated Discharge Date Admission Date: January 12, 2022 Subjective Follow-up of presentation with left hip painstatus post hip replacement; no complaints voiced, retention noted, noted urology consultation Physical Exam Physical Exam: Constitutional and general: No acute distress, looks biologic age Head and face: No puffiness, atraumatic Eyes: No scleral icterus, extraocular movements normal Neck: Supple, no JVD Skin/dermatologic/integument: No rash, no purpura Hematologic and lymphatic: pallor +, no petechia Gastrointestinal/abdomen: Nondistended, soft, nonacute Neurologic: Cranial nerves intact, nonfocal Psychiatry: Awake, alert, pleasant, communicative Cardiovascular: Heart rhythm regular, no rub, no murmur, no gallop Respiratory: Chest movements equal, no use of accessory muscles, no adventitious sounds Extremities: No edema, no cyanosis Results & Data Results & Data ([facility]) Vital Signs (Past 12 Hours) Vital Signs Temp Pulse Resp BP Pulse Ox O2 Del Method 01/16/22 15:32 36.7 C 101 H 18 94/57 L 96 01/16/22 08:25 Room Air 01/16/22 11:19 36.9 C 104 H 18 100/62 94 01/16/22 07:19 36.9 C 116 H 18 126/67 95 Laboratory Results Laboratory Results - last 24 hr 01/16/22 01/16/22 01/16/22 06:01 06:01 13:00 WBC 8.09 RBC 3.00 L Hgb 9.1 L Hct 27.1 L MCV 90.3 MCH 30.3 MCHC 33.6 RDW Std Deviation 38.0 RDW Coeff of Roland 11.6 Plt Count 276 MPV 9.4 Immature Gran % (Auto) 0.4 Neut % (Auto) 77.6 Lymph % (Auto) 12.0 [place] % (Auto) 8.8 Eos % (Auto) 0.6 Baso % (Auto) 0.6 Neut # (Auto) 6.28 Lymph # (Auto) 0.97 L [place] # (Auto) 0.71 Eos # (Auto) 0.05 Baso # (Auto) 0.05 Immature Gran # (Auto) 0.03 H Sodium 127 L Potassium 3.8 Chloride 97 L Carbon Dioxide 20 L Anion Gap 10 BUN 15 Creatinine 0.79 Est Cr Clr Drug Dosing 58.9 Est GFR ( Amer) 93.0 Est GFR (Non-Af Amer) 80.2 BUN/Creatinine Ratio 19.0 Glucose 73 Calcium 8.2 L Ur Random Sodium 43 PG Care Time/CCT Total # of Minutes Spent Total Time Spent with Patient: Total time spent is greater than 50% in coordination of care (as documented) at patient's floor/unit and/or counseling patient: Coding Level of Care Code 52713 Subseq Hosp Care Lvl 2 Diagnoses Left hip pain M25.552 Hyponatremia E87.1 Hypomagnesemia E83.42 Anemia D64.9 Hypothyroidism E03.9 Depression F32.9 Anxiety F41.9 Tobacco use Z72.0 Alcohol abuse F10.10
[2022-01-16] MEDS: LIDOCAINE 5% 1 PATCH TD SCH (21:27)
[2022-01-17] MEDS: ACETAMINOPHEN 500 MG TAB PO SCH ×4 (06:13→22:50)
[2022-01-17] MEDS: LEVOTHYROXINE SODIUM 88 MCG TABLET PO SCH (06:13)
[2022-01-17] MEDS: KETOROLAC TROMETHAMINE 15 MG/ML VIAL IV SCH ×2 (06:14→12:52)
[2022-01-17 06:29] LABS: Basophils # (auto) 0.05 K/uL (0-0.2); Basophils % (auto) 0.5 %; Eosinophils # (auto) 0.17 K/uL (0-0.50); Eosinophils % (auto) 1.7 %; Hematocrit (blood only) 26.2 % (34.1-44.9); Hemoglobin 9.1 g/dl (12.0-16.0); Immature Granulocytes # (auto) 0.06 K/uL (0.00-0.02); Immature Granulocytes % (auto) 0.6 %; Lymphocytes # (auto) 0.84 K/uL (1.2-3.4); Lymphocytes % (auto) 8.2 %; Mean Corpuscular Hemoglobin 31.2 pg (25.0-34.0); Mean Corpuscular Hgb Conc 34.7 g/dL (32.0-36.0); Mean Corpuscular Volume 89.7 fL (80.0-100.0); Mean Platelet Volume 9.5 fL (9.4-12.3); Monocytes # (auto) 1.02 K/uL (0.24-0.82); Platelet Count 263 K/uL (130-400); RDW Coefficient of Variation 11.6 % (11.5-14.5); RDW Standard Deviation 37.6 fL (36.4-46.3); Red Blood Count 2.92 M/uL (3.93-5.22); White Blood Count 10.24 K/ul (4.8-10.8)
[2022-01-17 06:53] LABS: BUN Creatinine Ratio 23.2 (10-20); Calcium 8.4 mg/dl (8.5-10.1); Creatinine Clr Calc Pharmacy 67.4 ml/min; Est GFR (African American) 108.1 ml/min; Est GFR (Non-African American) 93.3 ml/min; Magnesium 1.6 mg/dl (1.7-2.4)
--- NOTE | 2022-01-17 08:12 | Orthopedic Progress Note ---
Date of Service January 17, 2022 Assessment & Plan (1) Status post left hip replacement: Her biggest issue right now is her hip flexor and hamstring contractures. Therapy needs to work at getting her to relax and regain extension of her hip and her knee. Right now I want her to touch toe weightbearing on the left hip. She is on aspirin for DVT prophylaxis. She will need discharge to a nursing facility. Britta Luz was seen and examined at bedside this morning. Overall she is doing okay. She is having too much pain in the left hip. She is still having trouble extending her hip and her knee. She had no acute events overnight.. Review of Systems All systems reviewed & are unremarkable except as noted in HPI & below. Physical Exam On physical examination of the left hip, the dressing is clean and dry. Her hip is flexed at about 60 degrees and her knee is flexed about 80 degrees.. Results & Data Results & Data Laboratory Results . Diagnostic Findings . PG Care Time/CCT Total # of Minutes Spent Total Time Spent with Patient: Total time spent is greater than 50% in coordination of care (as documented) at patient's floor/unit and/or counseling patient: Coding Level of Care Code 77091 Post Operative Follow-Up Diagnoses Status post left hip replacement Z96.642
[2022-01-17] MEDS: CYCLOBENZAPRINE HCL 10 MG TAB PO PRN (08:21)
[2022-01-17] MEDS: SENNA 8.6 MG TAB PO SCH ×2 (08:21→20:04)
[2022-01-17] MEDS: ALPRAZolam 0.5 MG TABLET PO SCH ×2 (08:21→20:04)
[2022-01-17] MEDS: THIAMINE HCL 100 MG TAB PO SCH (08:22)
[2022-01-17] MEDS: ASPIRIN 81 MG ECTAB PO SCH ×2 (08:22→20:04)
[2022-01-17] MEDS: FERROUS SULFATE 325 MG TAB PO SCH (08:22)
[2022-01-17] MEDS: PANTOprazole 40 MG TAB PO SCH (08:22)
[2022-01-17] MEDS: PARoxetine HCL 20 MG TAB PO SCH ×2 (08:22→08:23)
[2022-01-17] MEDS: FOLIC ACID 1 MG TAB PO SCH (08:23)
[2022-01-17] MEDS: MAGNESIUM OXIDE 400 MG TAB PO SCH ×2 (08:23→20:04)
[2022-01-17] MEDS: POLYETHYLENE (MIRALAX) 17 GM PACK PO SCH (08:24)
--- NOTE | 2022-01-17 12:23 | Hospitalist Progress Note ---
Date of Service January 17, 2022 Assessment & Plan (1) Left hip pain: Plan: Status post hip replacement; orthopedics is resumed primary care (2) Hyponatremia: Plan: Much more impressive; not uncommon in postop state with narcotics, pain and likely ADH mediated; however, while still not critical and not symptomatic could be an issue if gets worse; also noted on SSRI -Tighten fluid restriction, uric acid, psychiatry input for adjustment of SSRI if indicated or alternatives; nephrology input before it becomes a serious issue; allow regular diet (3) Hypomagnesemia: Plan: Replace (4) Anemia: Plan: Some expected acute postop blood loss anemiafollow from our perspective (5) Hypothyroidism: Plan: Slightly increase thyroid replacement given #2last TSH 5.61 (6) Depression: Plan: On SSRI, might need to adjust therapy given impressive hyponatremia, as above (7) Anxiety: Plan: On SSRI, might need to adjust therapy given impressive hyponatremia, as above (8) Tobacco use: Plan: Cessation recommended (9) Alcohol abuse: Plan: As noted in HPI, no clinical withdrawalfollow; at baseline could have poor solute intake contributing to hyponatremia Admission and Anticipated Discharge Date Admission Date: January 12, 2022 Subjective Follow-up of presentation with left hip painstatus post hip replacement; no complaints voiced as such Physical Exam Physical Exam: Constitutional and general: No acute distress, looks biologic age Head and face: No puffiness, atraumatic Eyes: No scleral icterus, extraocular movements normal Neck: Supple, no JVD Skin/dermatologic/integument: No rash, no purpura Hematologic and lymphatic: pallor +, no petechia Gastrointestinal/abdomen: Nondistended, soft, nonacute Neurologic: Cranial nerves intact, nonfocal Psychiatry: Awake, alert, pleasant, communicative Cardiovascular: Heart rhythm regular, no rub, no murmur, no gallop Respiratory: Chest movements equal, no use of accessory muscles, no adventitious sounds Extremities: No edema, no cyanosis Results & Data Results & Data ([facility]) Vital Signs (Past 12 Hours) Vital Signs Temp Pulse Resp BP Pulse Ox O2 Del Method 01/17/22 08:15 Room Air 01/17/22 08:16 37.0 C 103 H 16 108/65 98 Room Air Laboratory Results Laboratory Results - last 24 hr 07/01/17/22 01/17/22 13:00 05:57 05:57 WBC 10.24 RBC 2.92 L Hgb 9.1 L Hct 26.2 L MCV 89.7 MCH 31.2 MCHC 34.7 RDW Std Deviation 37.6 RDW Coeff of Roland 11.6 Plt Count 263 MPV 9.5 Immature Gran % (Auto) 0.6 Neut % (Auto) 79.0 Lymph % (Auto) 8.2 [place] % (Auto) 10.0 Eos % (Auto) 1.7 Baso % (Auto) 0.5 Neut # (Auto) 8.10 H Lymph # (Auto) 0.84 L [place] # (Auto) 1.02 H Eos # (Auto) 0.17 Baso # (Auto) 0.05 Immature Gran # (Auto) 0.06 H Sodium 123 L Potassium 4.0 Chloride 94 L Carbon Dioxide 21 Anion Gap 8 BUN 16 Creatinine 0.69 Est Cr Clr Drug Dosing 67.4 Est GFR ( Amer) 108.1 Est GFR (Non-Af Amer) 93.3 BUN/Creatinine Ratio 23.2 H Glucose 93 Calcium 8.4 L Magnesium 1.6 L Ur Random Sodium 43 PG Care Time/CCT Total # of Minutes Spent Total Time Spent with Patient: Total time spent is greater than 50% in coordination of care (as documented) at patient's floor/unit and/or counseling patient: Coding Level of Care Code 91577 Subseq Hosp Care Lvl 2 Diagnoses Left hip pain M25.552 Hyponatremia E87.1 Hypomagnesemia E83.42 Anemia D64.9 Hypothyroidism E03.9 Depression F32.9 Anxiety F41.9 Tobacco use Z72.0 Alcohol abuse F10.10
[2022-01-17] MEDS: MAGNESIUM SULFATE / D5W 1 GM/100 ML BAG IV SCH ×2 (12:52→15:07)
--- NOTE | 2022-01-17 14:13 | Nephrology Consultation ---
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 Check urine osmolality. Maintain 1 L/d fluid restriction for now. Document strict I/O's. Provide oral NaCl 1 gram now and continue BID dosing. Repeat metabolic profile this evening. Encourage dietary protein intake. (2) Hypothyroidism: Check TSH with AM labs. Remains on levothyroxine 100 mcg daily. TSH 5.6 earlier this month. (3) Status post left hip replacement: Adequate pain control. (4) Postoperative urinary retention: Jimenez intact. Urology follow up to be completed post discharge. History of Present Illness Reason for Consultation: Hyponatremia Requesting Physician: Roxanne Quinonez MD Attending Physician: Germán Murillo DO History of Present Illness Sukh Tate is a 61 year-old female with hypothyroidism, tobacco abuse, alcohol abuse, ARELY/depression, and chronic hyponatremia. Nephrology consultation requested today for acute on chronic hyponatremia. Sukh was admitted to [facility] on December 13 with hip pain. She had suffered a fall with femur fracture in August. ORIF performed by Dr. Peters at that time. Imaging demonstrated avascular necrosis and VICKY was planned but after an initial rescheduling, Sukh presented to the hospital. L VICKY with hardware removal was performed without complications on January 15. Serum sodium at baseline ranging from 129-133 mmol/L. Sodium yesterday was 127 mmol/L and today 123 mmol/L. Sukh is currently on a fluid restriction of 1 L daily. The patient's medical history and plan of care were discussed with Dr. Quinonez today. Appetite has been fair. Sukh reports adequate pain control. NSAIDS have been stopped. She is non-oliguric. Creatinine remains normal. BP has been running low. Sukh does endorse some weakness and fatigue. Allergies Allergy/AdvReac Type Severity Reaction Status Date / Time amoxicillin [From Augmentin] Allergy Severe cdif Verified 01/12/22 17:23 clavulanic acid Allergy Severe cdif Verified 01/12/22 17:23 [From Augmentin] sulfamethoxazole Allergy Severe Rash Verified 01/12/22 17:23 [From Bactrim] trimethoprim [From Bactrim] Allergy Severe Rash Verified 01/12/22 17:23 codeine AdvReac Severe "really Verified 01/12/22 17:23 sick" Home Medications Medication Instructions Recorded Confirmed Type omeprazole 20 mg capsule,delayed 20 mg PO QAM #90 caps 11/25/21 01/12/22 Rx release etodolac 500 mg tablet 500 mg PO BID 11/28/21 01/12/22 History multivitamin (Daily Multi-Vitamin) 1 tab PO QAM 11/28/21 01/12/22 History folic acid 1 mg tablet 1 mg PO QAM 12/01/21 01/12/22 History oxycodone-acetaminophen 5 mg-325 1 tab PO Q8H PRN Pain 12/01/21 01/12/22 History mg tablet alprazolam 0.5 mg tablet 0.5 mg PO BID #60 tabs 12/15/21 01/12/22 Rx paroxetine HCl 20 mg tablet 20 mg PO DAILY #30 tabs 12/15/21 01/12/22 Rx paroxetine HCl 40 mg tablet 40 mg PO DAILY #30 tabs 12/15/21 01/12/22 Rx magnesium oxide 400 mg PO DAILY #30 tabs 01/05/22 01/12/22 Rx ferrous sulfate 324 mg (65 mg 324 mg PO QAM 01/12/22 01/12/22 History iron) tablet,delayed release levothyroxine 88 mcg tablet 88 mcg PO DAILYBB 01/12/22 01/12/22 History (Synthroid) sennosides 8.6 mg tablet (senna) 8.6 mg PO BID 01/12/22 01/12/22 History Patient History Medical History Anxiety Depression Hx of fracture of left hip Hx of gastroesophageal reflux (GERD) Hypothyroidism Major depressive disorder Surgical History History of colonoscopy History of esophagogastroduodenoscopy (EGD) History of open reduction and internal fixation (ORIF) procedure left, pinning, done at [place] [facility] History of tonsillectomy Hx of breast biopsy lt. Family History Mother Anxiety Bipolar disorder Heart disease Depression Breast cancer Father Bipolar disorder Lung disease Colorectal cancer Prostate cancer Social History Smoking Status: Current every day smoker Tobacco Type: Cigarettes Age Started Using Tobacco: 17; packs per day: 1; Cigarettes Per Day: 10-20/day; Second Hand Exposure: No; Hx Alcohol Use: Yes (quit in august) Alcohol type: beer Hx Substance Use: No Preferred Language: Wolof Communication Ability: Effective Visual Impairment: No Limitations Hearing Ability: Normal [employer] Recreation Required: No Beliefs That Will Affect Care: None marital status: Current Living Situation: Alone current occupational status: retired current occupation: Retired- [employer] Feels Safe at Home: Yes Childhood Exposure to Second-Hand Smoke: Yes caffeine: Yes (coffee ) Dental Care, Regularly: No Physical Activity Frequency: Does not Exercise Seatbelt Use: always Assistive Devices: Walker Review of Systems Review of Systems: All systems reviewed & are unremarkable except as noted in HPI & below Physical Exam Constitutional: well developed; no acute distress Eyes: no scleral abnormality and no corneal abnormality ENMT: Mouth: no oral mucosal abnormality and oral mucous membranes not dry Neck: normal visual inspection and trachea midline Respiratory: normal respiratory effort Auscultation: lungs clear to auscultation bilaterally Cardiovascular: Rate/Rhythm: regular rate Heart Sounds: normal S1 and normal S2 Extremities: no edema Musculoskeletal: Extremities: no cyanosis and no clubbing Skin: normal turgor; no lesions Neurologic: Motor/Sensory: no tremor and no asterixis Psychiatric: Orientation: alert and oriented x 3 Results & Data ([place]) Vital Signs (Past 12 Hours) Vital Signs Temp Pulse Resp BP Pulse Ox O2 Del Method 01/17/22 08:15 Room Air 01/17/22 08:16 37.0 C 103 H 16 108/65 98 Room Air Laboratory Results Laboratory Results - last 24 hr 01/17/22 01/17/22 05:57 05:57 WBC 10.24 RBC 2.92 L Hgb 9.1 L Hct 26.2 L MCV 89.7 MCH 31.2 MCHC 34.7 RDW Std Deviation 37.6 RDW Coeff of Roland 11.6 Plt Count 263 MPV 9.5 Immature Gran % (Auto) 0.6 Neut % (Auto) 79.0 Lymph % (Auto) 8.2 [place] % (Auto) 10.0 Eos % (Auto) 1.7 Baso % (Auto) 0.5 Neut # (Auto) 8.10 H Lymph # (Auto) 0.84 L [place] # (Auto) 1.02 H Eos # (Auto) 0.17 Baso # (Auto) 0.05 Immature Gran # (Auto) 0.06 H Sodium 123 L Potassium 4.0 Chloride 94 L Carbon Dioxide 21 Anion Gap 8 BUN 16 Creatinine 0.69 Est Cr Clr Drug Dosing 67.4 Est GFR ( Amer) 108.1 Est GFR (Non-Af Amer) 93.3 BUN/Creatinine Ratio 23.2 H Glucose 93 Calcium 8.4 L Magnesium 1.6 L PG Care Time/CCT Total # of Minutes Spent Total Time Spent with Patient: Total time spent is greater than 50% in coordination of care (as documented) at patient's floor/unit and/or counseling patient: Coding Level of Care Code 72137 Inpt Consult Level 4 Diagnoses Hyponatremia E87.1 Hypothyroidism E03.9 Status post left hip replacement Z96.642 Postoperative urinary retention N99.89; R33.8
[2022-01-17] MEDS: SODIUM CHLORIDE 1 GM TABLET PO SCH ×2 (16:25→20:04)
[2022-01-17] MEDS: LIDOCAINE 5% 1 PATCH TD SCH (20:04)
[2022-01-17 20:15] LABS: BUN Creatinine Ratio 19.7 (10-20); Creatinine Clr Calc Pharmacy 65.5 ml/min; Est GFR (African American) 105.8 ml/min; Est GFR (Non-African American) 91.3 ml/min
[2022-01-17] MEDS: oxyCODONE HCL IR 5 MG TAB (IMMEDIATE RELEASE) PO PRN (22:51)
[2022-01-17] MEDS ORDERED: SODIUM CHLORIDE 1 GM TABLET PO ONE (23:46)
--- NOTE | 2022-01-17 23:50 | Communication Note ---
Date of Service: January 17, 2022 Night resident note 20:00- repeat BMP was notable for worsening hyponatremia (down to 121 from 123). Transferred patient to med/surg telemetry for closer monitoring given seizure risk with worsening hyponatremia Ordered an additional NaCl 2g PO dose (x1) on top of patient's existing salt tab order (1g PO bid scheduled) Repeat BMP already ordered, rest of management per day team Resident Activity Tracking Resident Involvement: Resident Care Provided and [employer] Coverage Note Care Provided: Adult Hospital Medicine
[2022-01-18] MEDS: ACETAMINOPHEN 500 MG TAB PO SCH ×3 (05:28→21:15)
[2022-01-18] MEDS: LEVOTHYROXINE SODIUM 100 MCG TABLET PO SCH (05:28)
[2022-01-18] MEDS: MoRPHine SULFATE 2 MG/ML CARP IV PRN (05:35)
--- NOTE | 2022-01-18 07:36 | Orthopedic Progress Note ---
Date of Service January 18, 2022 Assessment & Plan (1) Status post left hip replacement: I reinforced with her the importance of extending her left hip and her left knee. Is very important that she gets this range of motion back. She understands that. She is currently on the telemetry unit to monitor her hypon atremia. She has a Jimenez catheter in place and has already been seen by urology. Urology plans to follow-up with her in 5 to 7 days in the office to do a voiding trial. Nephrology has already seen her and is currently treating her hyponatremia. We are still waiting on a psychiatry consult. Case management is working on discharge planning to [facility] as she will likely need extended rehab. Britta Luz was seen and examined at bedside this morning. She was moved down to the telemetry floor last night. Her sodium levels have been dropping. She has been relatively asymptomatic but there is concerns of possible seizure activity with her hyponatremia. She has been seen by physical therapy. They are working at extending her hip and her knee. She had a Jimenez placed by urology. Psychiatry is also been consulted to evaluate her current SSRIs with her current hyponatremia. She is not having too much pain in the left hip.. Review of Systems All systems reviewed & are unremarkable except as noted in HPI & below. Physical Exam On physical examination of the left hip, the dressing is clean and dry. She is sitting with her hip flexed about 80 degrees and her knee flexed at 90 degrees.. Results & Data Results & Data Laboratory Results . Diagnostic Findings . PG Care Time/CCT Total # of Minutes Spent Total Time Spent with Patient: Total time spent is greater than 50% in coordination of care (as documented) at patient's floor/unit and/or counseling patient: Coding Level of Care Code 33183 Post Operative Follow-Up Diagnoses Status post left hip replacement Z96.642
[2022-01-18 09:45] LABS: BUN Creatinine Ratio 17.5 (10-20); Calcium 8.1 mg/dl (8.5-10.1); Creatinine Clr Calc Pharmacy 76.6 ml/min; Est GFR (African American) 111.4 ml/min; Est GFR (Non-African American) 96.1 ml/min; Magnesium 1.7 mg/dl (1.7-2.4); Potassium 3.9 mmol/L (3.5-5.1); Uric Acid 4.2 mg/dl (2.6-7.2)
[2022-01-18] MEDS: MAGNESIUM OXIDE 400 MG TAB PO SCH ×2 (10:00→20:28)
[2022-01-18] MEDS: PARoxetine HCL 20 MG TAB PO SCH ×2 (10:00→10:01)
[2022-01-18] MEDS: ASPIRIN 81 MG ECTAB PO SCH ×2 (10:02→20:27)
[2022-01-18] MEDS: THIAMINE HCL 100 MG TAB PO SCH (10:02)
[2022-01-18] MEDS: PANTOprazole 40 MG TAB PO SCH (10:02)
[2022-01-18] MEDS: FOLIC ACID 1 MG TAB PO SCH (10:02)
[2022-01-18] MEDS: FERROUS SULFATE 325 MG TAB PO SCH (10:02)
[2022-01-18] MEDS: POLYETHYLENE (MIRALAX) 17 GM PACK PO SCH (10:03)
[2022-01-18] MEDS: SODIUM CHLORIDE 1 GM TABLET PO SCH (10:05)
[2022-01-18] MEDS: ALPRAZolam 0.5 MG TABLET PO SCH ×2 (10:11→20:26)
[2022-01-18] MEDS: SENNA 8.6 MG TAB PO SCH ×2 (11:07→20:28)
[2022-01-18] MEDS: CYCLOBENZAPRINE HCL 10 MG TAB PO PRN ×2 (11:09→20:26)
--- NOTE | 2022-01-18 11:22 | Nephrology Progress Note ---
Date of Service January 18, 2022 Assessment & Plan (1) Hyponatremia: Plan: Chronic dysnatremia attributed in the past with photomania. 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 Not tolerating oral NaCl tablets well and appears slightly dry on exam today. Will provide additional fluid with hypertonic infusion of 2% saline @ 100 ml/hr and monitor response to infusion. Maintain 1 L/d fluid restriction for now. Document strict I/O's.Repeat metabolic profile at 5 PM. Encourage dietary protein intake. Thiamine, folic acid, and daily MVI added today. Check Po4 with next labs. (2) Hypothyroidism: Plan: TSH acceptable. Remains on levothyroxine 100 mcg daily. (3) Status post left hip replacement: Plan: Adequate pain control. (4) Postoperative urinary retention: Plan: Jimenez intact. Urology follow up to be completed post discharge. Admission and Anticipated Discharge Date Admission Date: January 12, 2022 Subjective No acute events overnight. She was disoriented earlier and admits that she has been somewhat confused. She reports feeling weak and tired. Appetite fair. BP low. No lightheadedness, dizziness, syncope, or presyncope. Pain well controlled. Sukh does not tolerate oral NaCl tablets well. Review of Systems Review of Systems: All systems reviewed & are unremarkable except as noted in HPI & below Physical Exam Constitutional: well developed; no acute distress Eyes: no scleral abnormality and no corneal abnormality ENMT: Mouth: + dry oral mucous membranes; no oral mucosal abnormality Neck: normal visual inspection and trachea midline Respiratory: normal respiratory effort Auscultation: lungs clear to auscultation bilaterally Cardiovascular: Rate/Rhythm: regular rate Heart Sounds: normal S1 and normal S2 Extremities: no edema Musculoskeletal: Extremities: no cyanosis and no clubbing Skin: + turgor decreased; no lesions Neurologic: Motor/Sensory: no tremor and no asterixis Psychiatric: Orientation: alert and oriented x 3 Results & Data ([facility]) Vital Signs (Past 12 Hours) Vital Signs Temp Pulse Pulse Resp BP Pulse Ox O2 Del Method 01/18/22 07:53 36.8 C 93 H 18 96/60 L 97 Room Air 01/18/22 02:52 36.8 C 95 H 18 95/59 L 95 Room Air 01/18/22 02:09 95 H 01/18/22 02:04 36.5 C 95 H 18 98/59 L 97 Room Air Laboratory Results Laboratory Results - last 24 hr 01/17/22 01/17/22 01/18/22 17:30 19:48 08:56 Sodium 121 L 125 L Potassium 4.0 3.9 Chloride 92 L 95 L Carbon Dioxide 23 25 Anion Gap 6 5 BUN 14 11 Creatinine 0.71 0.63 Est Cr Clr Drug Dosing 65.5 76.6 Est GFR ( Amer) 105.8 111.4 Est GFR (Non-Af Amer) 91.3 96.1 BUN/Creatinine Ratio 19.7 17.5 Glucose 101 H 123 H Uric Acid 4.2 Calcium 8.0 L 8.1 L Magnesium 1.7 TSH Urine Osmolality 429 L 01/18/22 08:56 Sodium Potassium Chloride Carbon Dioxide Anion Gap BUN Creatinine Est Cr Clr Drug Dosing Est GFR ( Amer) Est GFR (Non-Af Amer) BUN/Creatinine Ratio Glucose Uric Acid Calcium Magnesium TSH 1.729 Urine Osmolality PG Care Time/CCT Total # of Minutes Spent Total Time Spent with Patient: Total time spent is greater than 50% in coordination of care (as documented) at patient's floor/unit and/or counseling patient: Coding Level of Care Code 39517 Subseq Hosp Care Lvl 3 Diagnoses Hyponatremia E87.1 Hypothyroidism E03.9 Status post left hip replacement Z96.642 Postoperative urinary retention N99.89; R33.8
[2022-01-18] MEDS ORDERED: SODI CHLOR IV ONE (11:30)
[2022-01-18] MEDS ORDERED: WATER IV ONE (11:30)
[2022-01-18] MEDS ORDERED: THIAMINE HCL 100 MG TAB PO SCH (11:30)
[2022-01-18] MEDS ORDERED: STERILE IV ONE (11:30)
[2022-01-18] MEDS ORDERED: FOLIC ACID 1 MG TAB PO SCH (11:30)
--- NOTE | 2022-01-18 12:00 | Psychiatric Consultation ---
Date of Consultation January 18, 2022 Impression / Recommendations Impression 61 yo woman with history of depression and anxiety with panic attacks with worsening hyponatremia after hip replacement. Had been on Paxil for many years without issue but then had discontinued it and was recently restarted about 1-2 months ago so potentially could be contributing to new hyponatremia. Given potential contribution to hyponatremia and her sense it is ineffective will taper to discontinuation. Unfortunately all antidepressants carry risk of hyponatremia so no other safe alternatives at this time. While she has some depression she denies SI and feels comfortable with plan to stop Paxil. Xanax use has been chronic for >5 years per her report and consistent scripts confirmed per PDMP. At this point would continue with Xanax given Paxil taper but once her sodium stabilizes would recommend transition to longer acting benzodiazepine such as Klonopin in the outpatient setting with goal of taper to discontinuation within the next 1-2 years given high risks including falls, confusion, delirium particularly in patients over 65. If stopped abruptly would require AWSS. (1) Major depressive disorder: (2) Anxiety: (3) Hyponatremia: (4) Status post left hip replacement: Plan -rapid taper Paxil to discontinuation given significant hyponatremia-will decrease from 60mg to 40mg for tomorrow and then 20mg the following the day and then stop. -continue with Xanax for now with goal of transition to Klonopin in outpatient setting and eventual discontinuation -once Na+ stabilizes in outpatient setting could consider initiation of altern ative SSRI such as sertraline, would use low doses and monitor Na+ regularly in the first few months Psych History Identifying Data 61 yo woman with history of depression and anxiety with panic attacks admitted medically for left hip replacement but then developed significant hyponatremia. Psychiatry consulted for medication recommendations regarding SSRI in context of hyponatremia. Chief Complaint "The Paxil doesn't even help". History of Present Illness Sukh is somewhat confused, oriented but at times seems to lose track of our discussion. She recalls a history of Paxil use for depression but then had been off it for some time and her PCP recent restarted it about 1-2 months ago for anxiety and depression. She has noticed no benefits in terms of her mood. She endorses some depression with PHQ-9 score of 10 and 0 for Q9. She continues to deny any SI today. She states she has been on Xanax "since forever" and estimates it's been at least greater than 5 years for anxiety and panic attacks. Saw a psychiatrist in the past and willing to consider re-engaging with outpatient psychiatric services at [facility] again. Reviewed concerns of hyponatremia and potential contribution from SSRI and she is comfortable with discontinuing this. Discussed that once sodium stabilizes she and her outpatient providers could then consider trying an SSRI with close monitoring to ensure no re-emergence of hyponatremia. Reviewed risks of Xanax, particularly as she gets older, and recommendation that in the coming months with her outpatient providers she consider transition to longer acting benzo such as Klonopin and then goal of taper to discontinuation. She agrees with this plan. Confirms that she doesn't drink any alcohol, counseled on potential fatal risk if combining benzo and alcohol. Further history per psych liason note from 01/17/22: "Met with pt for initial psych consult. Pt noted to be confused at times and a poor historian. Pt consulted due to hyponatremia and pt currently prescribed Paxil 60mg daily. When meeting with pt, she initially stated she has been prescribed this for approximately 3-4 years. She states she has periods of noncompliance but was restarted on this 1-2 months ago. She denies having a psychiatrist and states her medications are prescribed by her PCP, Dr. Morgan. When asked about prior medication trials, she states, "I don't know. You'll have to ask Dr. Morgan." Pt states she feels the Paxil "doesn't really work because I don't feel a difference." Pt states she continues to have depression. She denies that her depression has worsened over her medical issues stating, "no, I've just been depressed for a long time." She denies any SI or past SA. She denies any past psych hospitalizations. PHQ-9=10 with question #9=0. During further investigation into her PCP visits thru [facility] along with her external medication history, it was noted she previously saw Dr. Rodgers thru [facility] in [place]. According to her PCP visit in October 2021, pt declined returning back to psychiatry. Past medication trials include Prozac 60mg, Abilify 2mg, Viibryd 40mg and Cymbalta 30mg." Past Psychiatric History Previous Psych History: see HPI Past Medication Trials: Prozac 60mg, Abilify 2mg, Viibryd 40mg and Cymbalta 30mg Allergies Allergy/AdvReac Type Severity Reaction Status Date / Time amoxicillin [From Augmentin] Allergy Severe cdif Verified 01/12/22 17:23 clavulanic acid Allergy Severe cdif Verified 01/12/22 17:23 [From Augmentin] sulfamethoxazole Allergy Severe Rash Verified 01/12/22 17:23 [From Bactrim] trimethoprim [From Bactrim] Allergy Severe Rash Verified 01/12/22 17:23 codeine AdvReac Severe "really Verified 01/12/22 17:23 sick" Home Medications Medication Instructions Recorded Confirmed Type omeprazole 20 mg capsule,delayed 20 mg PO QAM #90 caps 11/25/21 01/12/22 Rx release etodolac 500 mg tablet 500 mg PO BID 11/28/21 01/12/22 History multivitamin (Daily Multi-Vitamin) 1 tab PO QAM 11/28/21 01/12/22 History folic acid 1 mg tablet 1 mg PO QAM 12/01/21 01/12/22 History oxycodone-acetaminophen 5 mg-325 1 tab PO Q8H PRN Pain 12/01/21 01/12/22 History mg tablet alprazolam 0.5 mg tablet 0.5 mg PO BID #60 tabs 12/15/21 01/12/22 Rx paroxetine HCl 20 mg tablet 20 mg PO DAILY #30 tabs 12/15/21 01/12/22 Rx paroxetine HCl 40 mg tablet 40 mg PO DAILY #30 tabs 12/15/21 01/12/22 Rx magnesium oxide 400 mg PO DAILY #30 tabs 01/05/22 01/12/22 Rx ferrous sulfate 324 mg (65 mg 324 mg PO QAM 01/12/22 01/12/22 History iron) tablet,delayed release levothyroxine 88 mcg tablet 88 mcg PO DAILYBB 01/12/22 01/12/22 History (Synthroid) sennosides 8.6 mg tablet (senna) 8.6 mg PO BID 01/12/22 01/12/22 History Substance Abuse History denies Personal History Living Arrangements: Home Beliefs That Will Affect Care: None Patient History Medical History Anxiety Depression Hx of fracture of left hip Hx of gastroesophageal reflux (GERD) Hypothyroidism Major depressive disorder Surgical History History of colonoscopy History of esophagogastroduodenoscopy (EGD) History of open reduction and internal fixation (ORIF) procedure left, pinning, done at [place] History of tonsillectomy Hx of breast biopsy lt. Family History Mother Anxiety Bipolar disorder Heart disease Depression Breast cancer Father Bipolar disorder Lung disease Colorectal cancer Prostate cancer Social History Smoking Status: Current every day smoker Tobacco Type: Cigarettes Age Started Using Tobacco: 17; packs per day: 1; Cigarettes Per Day: 10-20/day; Second Hand Exposure: No; Hx Alcohol Use: Yes (quit in august) Alcohol type: beer Hx Substance Use: No Preferred Language: Guatemalan Communication Ability: Effective Visual Impairment: No Limitations Hearing Ability: Normal Security Attendant Required: No Beliefs That Will Affect Care: None marital status: Current Living Situation: Alone current occupational status: retired current occupation: Retired- [employer] Feels Safe at Home: Yes Childhood Exposure to Second-Hand Smoke: Yes caffeine: Yes (coffee ) Dental Care, Regularly: No Physical Activity Frequency: Does not Exercise Seatbelt Use: always Assistive Devices: Walker Physical Exam Psychiatric: Orientation: alert and oriented x 3 Apperance: appropriately dressed and appropriately groomed Eye Contact: good eye contact Motor Behavior: no abnormal motor movements Speech: normal rate/rhythm/volume of speech Affect: euthymic affect Mood: + depressed mood and + anxious mood Thought Process: + circumstantial thought process Thought Content: reality based without delusions Suicidal Thoughts: denies suicidal thoughts Homicidal Thoughts: denies homicidal thoughts Hallucinations: no auditory h allucinations and no visual hallucinations Cognition: recent memory grossly intact, remote memory grossly intact and language grossly intact; + attention not intact Estimated Intelligence: consistent with education level Insight: + fair insight Judgement: + fair judgement Vital Signs (Past 24 Hours): Last Vital Signs Temp 36.8 C 01/18/22 07:53 Pulse 93 H 01/18/22 07:53 Resp 18 01/18/22 07:53 BP 96/60 L 01/18/22 07:53 Pulse Ox 97 01/18/22 07:53 O2 Del Method 01/18/22 07:53 O2 Flow Rate 2 01/15/22 19:09 Review of Systems All systems reviewed & are unremarkable except as noted in HPI & below (feels weak) Results & Data (PSY) Medications Administered Acetaminophen (Acetaminophen 500 Mg Tab) 1,000 mg PO Q8 [facility]O Stop: 02/12/22 13:59 Last Admin: 01/18/22 05:28 Dose: 1,000 mg Documented By: Admin: 01/17/22 22:50 Dose: 1,000 mg Documented By: Admin: 01/17/22 15:03 Dose: 1,000 mg Documented By: Admin: 01/17/22 06:13 Dose: 1,000 mg Documented By: Admin: 01/16/22 21:26 Dose: 1,000 mg Documented By: Admin: 01/16/22 14:33 Dose: 1,000 mg Documented By: Admin: 01/16/22 05:52 Dose: 1,000 mg Documented By: Admin: 01/15/22 21:54 Dose: 1,000 mg Documented By: Admin: 01/15/22 18:35 Dose: Not Given Documented By: Admin: 01/15/22 06:04 Dose: 1,000 mg Documented By: Admin: 01/14/22 22:00 Dose: Not Given Documented By: Admin: 01/14/22 14:29 Dose: Not Given Documented By: Admin: 01/14/22 05:26 Dose: 1,000 mg Documented By: Admin: 01/13/22 22:17 Dose: 1,000 mg Documented By: Admin: 01/13/22 14:09 Dose: 1,000 mg Documented By: KIT Alprazolam (Alprazolam 0.5 Mg Tablet) 0.5 mg PO BID HAO Stop: 02/11/22 20:59 Last Admin: 01/18/22 10:11 Dose: 0.5 mg Documented By: Admin: 01/17/22 20:04 Dose: 0.5 mg Documented By: Admin: 01/17/22 08:21 Dose: 0.5 mg Documented By: Admin: 01/16/22 21:26 Dose: 0.5 mg Documented By: Admin: 01/16/22 08:33 Dose: 0.5 mg Documented By: Admin: 01/15/22 20:33 Dose: 0.5 mg Documented By: Admin: 01/15/22 08:59 Dose: 0.5 mg Documented By: Admin: 01/14/22 20:19 Dose: 0.5 mg Documented By: Admin: 01/14/22 08:37 Dose: 0.5 mg Documented By: Admin: 01/13/22 20:09 Dose: 0.5 mg Documented By: Admin: 01/13/22 07:35 Dose: 0.5 mg Documented By: Admin: 01/12/22 22:59 Dose: 0.5 mg Documented By: BRITANY Aspirin (Aspirin 81 Mg Ectab) 81 mg PO BID [facility] Stop: 02/14/22 20:59 Last Admin: 01/18/22 10:02 Dose: 81 mg Documented By: Admin: 01/17/22 20:04 Dose: 81 mg Documented By: Admin: 01/17/22 08:22 Dose: 81 mg Documented By: Admin: 01/16/22 21:27 Dose: 81 mg Documented By: Admin: 01/16/22 08:21 Dose: 81 mg Documented By: Admin: 01/15/22 20:29 Dose: 81 mg Documented By: ROBB Cyclobenzaprine HCl (Cyclobenzaprine Hcl 10 Mg Tab) 10 mg PO TID PRN PRN Reason: Muscle Spasm Stop: 02/14/22 20:59 Last Admin: 01/18/22 11:09 Dose: 10 mg Documented By: Admin: 01/17/22 08:21 Dose: 10 mg Documented By: Admin: 01/16/22 08:33 Dose: 10 mg Documented By: Admin: 01/15/22 18:53 Dose: 10 mg Documented By: SUZANNE Ferrous Sulfate (Ferrous Sulfate 325 Mg Tab) 325 mg PO QAM [facility] Stop: 02/12/22 08:59 Last Admin: 01/18/22 10:02 Dose: 325 mg Documented By: Admin: 01/17/22 08:22 Dose: 325 mg Documented By: Admin: 01/16/22 08:21 Dose: 325 mg Documented By: Admin: 01/15/22 07:45 Dose: Not Given Documented By: Admin: 01/14/22 08:36 Dose: 325 mg Documented By: Admin: 01/13/22 07:35 Dose: 325 mg Documented By: KIT Folic Acid (Folic Acid 1 Mg Tab) 1 mg PO QAM [facility]O Stop: 02/12/22 08:59 Last Admin: 01/18/22 10:02 Dose: 1 mg Documented By: Admin: 01/17/22 08:23 Dose: 1 mg Documented By: Admin: 01/16/22 08:22 Dose: 1 mg Documented By: Admin: 01/15/22 08:56 Dose: 1 mg Documented By: Admin: 01/14/22 08:35 Dose: 1 mg Documented By: Admin: 01/13/22 07:35 Dose: 1 mg Documented By: KIT Levothyroxine Sodium (Levothyroxine Sodium 100 Mcg Tablet) 100 mcg PO DAILYBB [facility] Stop: 02/17/22 06:29 Last Admin: 01/18/22 05:28 Dose: 100 mcg Documented By: REJI Lidocaine (Lidocaine 5% 1 Patch) 1 patch TD Q24H [facility] Stop: 02/11/22 20:59 Last Admin: 01/17/22 20:04 Dose: Not Given Documented By: Admin: 01/16/22 21:27 Dose: Not Given Documented By: Admin: 01/15/22 20:30 Dose: Not Given Documented By: Admin: 01/14/22 20:19 Dose: 1 patch Documented By: Admin: 01/13/22 20:09 Dose: 1 patch Documented By: Admin: 01/12/22 23:02 Dose: 1 patch Documented By: BRITANY Magnesium Oxide (Magnesium Oxide 400 Mg Tab) 400 mg PO BID [facility] Stop: 02/16/22 20:59 Last Admin: 01/18/22 10:00 Dose: 400 mg Documented By: Admin: 01/17/22 20:04 Dose: 400 mg Documented By: ROSIE Miscellaneous (Remove Lidoderm Patch) 1 each N/A Q24H [facility] Stop: 02/12/22 08:59 Last Admin: 01/18/22 10:05 Dose: Not Given Documented By: Admin: 01/17/22 08:23 Dose: Not Given Documented By: Admin: 01/16/22 10:44 Dose: Not Given Documented By: Admin: 01/15/22 08:56 Dose: 1 each Documented By: Admin: 01/14/22 08:38 Dose: 1 each Documented By: Admin: 01/13/22 07:36 Dose: 1 each Documented By: KIT Morphine Sulfate (Morphine Sulfate 2 Mg/Ml Carp) 2 mg IV Q3H PRN PRN Reason: Pain & Pre PT Stop: 01/26/22 20:10 Last Admin: 01/18/22 05:35 Dose: 2 mg Documented By: Admin: 01/16/22 12:58 Dose: 2 mg Documented By: Admin: 01/16/22 08:33 Dose: 2 mg Documented By: Admin: 01/15/22 22:00 Dose: 2 mg Documented By: Admin: 01/14/22 13:49 Dose: 2 mg Documented By: KIT Ondansetron HCl (Ondansetron Inj 2 Mg/Ml 2 Ml Vial) 4 mg IV Q6H PRN PRN Reason: Nausea Stop: 02/11/22 20:10 Last Admin: 01/18/22 00:00 Dose: 4 mg Documented By: ROSIE Oxycodone HCl (Oxycodone Hcl Ir 5 Mg Tab (Immediate Release)) 5 mg PO Q4H PRN PRN Reason: Pain or Pre PT Stop: 01/29/22 17:47 Last Admin: 01/17/22 22:51 Dose: 5 mg Documented By: Admin: 01/16/22 11:10 Dose: 5 mg Documented By: Admin: 01/16/22 04:20 Dose: 5 mg Documented By: Admin: 01/15/22 20:28 Dose: 5 mg Documented By: ROBB Pantoprazole Sodium (Pantoprazole 40 Mg Tab) [facility] [place] Stop: 02/13/22 08:59 Last Admin: 01/18/22 10:02 Dose: 40 mg Documented By: Admin: 01/17/22 08:22 Dose: 40 mg Documented By: Admin: 01/16/22 08:22 Dose: 40 mg Documented By: Admin: 01/15/22 08:56 Dose: 40 mg Documented By: Admin: 01/14/22 10:00 Dose: 40 mg Documented By: KIT Paroxetine HCl (Paroxetine Hcl 20 Mg Tab) 20 mg PO DAILY [facility]O Stop: 02/12/22 08:59 Last Admin: 01/18/22 10:00 Dose: 20 mg Documented By: Admin: 01/17/22 08:22 Dose: 20 mg Documented By: Admin: 01/16/22 08:21 Dose: 20 mg Documented By: Admin: 01/15/22 08:55 Dose: 20 mg Documented By: Admin: 01/14/22 08:36 Dose: 20 mg Documented By: Admin: 01/13/22 07:35 Dose: 20 mg Documented By: KIT Paroxetine HCl (Paroxetine Hcl 20 Mg Tab) 40 mg PO DAILY [facility]O Stop: 02/12/22 08:59 Last Admin: 01/18/22 10:01 Dose: 40 mg Documented By: Admin: 01/17/22 08:23 Dose: 40 mg Documented By: Admin: 01/16/22 08:23 Dose: 40 mg Documented By: Admin: 01/15/22 08:56 Dose: 40 mg Documented By: Admin: 01/14/22 08:36 Dose: 40 mg Documented By: Admin: 01/13/22 07:35 Dose: 40 mg Documented By: KIT Polyethylene Glycol (Polyethylene (Miralax) 17 Gm Pack) 17 gm PO DAILY [facility]O Stop: 02/13/22 08:59 Last Admin: 01/18/22 10:03 Dose: Not Given Documented By: Admin: 01/17/22 08:24 Dose: Not Given Documented By: Admin: 01/16/22 08:20 Dose: 17 gm Documented By: Admin: 01/15/22 07:45 Dose: Not Given Documented By: Admin: 01/14/22 08:36 Dose: Not Given Documented By: KIT Sennosides (Senna 8.6 Mg Tab) 8.6 mg PO BID [facility]O Stop: 02/11/22 20:59 Last Admin: 01/18/22 11:07 Dose: 8.6 mg Documented By: Admin: 01/17/22 20:04 Dose: 8.6 mg Documented By: Admin: 01/17/22 08:21 Dose: 8.6 mg Documented By: Admin: 01/16/22 21:27 Dose: 8.6 mg Documented By: Admin: 01/16/22 08:21 Dose: 8.6 mg Documented By: Admin: 01/15/22 20:31 Dose: 8.6 mg Documented By: Admin: 01/15/22 08:55 Dose: 8.6 mg Documented By: Admin: 01/14/22 20:19 Dose: 8.6 mg Documented By: Admin: 01/14/22 08:36 Dose: Not Given Documented By: Admin: 01/13/22 20:10 Dose: 8.6 mg Documented By: Admin: 01/13/22 09:43 Dose: Not Given Documented By: Admin: 01/12/22 23:01 Dose: 8.6 mg Documented By: BRITANY Thiamine HCl (Thiamine Hcl 100 Mg Tab) 100 mg PO QAM [facility] Stop: 02/13/22 17:14 Last Admin: 01/18/22 10:02 Dose: 100 mg Documented By: Admin: 01/17/22 08:22 Dose: 100 mg Documented By: Admin: 01/16/22 08:22 Dose: 100 mg Documented By: Admin: 01/15/22 08:56 Dose: 100 mg Documented By: Admin: 01/14/22 19:02 Dose: 100 mg Documented By: KIT Coding Level of Care Code 79223 Inpt Consult Level 3 Diagnoses Major depressive disorder F32.9 Anxiety F41.9 Hyponatremia E87.1 Status post left hip replacement Z96.642
[2022-01-18] MEDS: MULTIVITAMIN TAB PO SCH (13:01)
[2022-01-18] MEDS: oxyCODONE HCL IR 5 MG TAB (IMMEDIATE RELEASE) PO PRN ×2 (13:04→20:26)
[2022-01-18 17:20] LABS: BUN Creatinine Ratio 16.4 (10-20); Calcium 7.8 mg/dl (8.5-10.1); Est GFR (African American) 109.2 ml/min; Est GFR (Non-African American) 94.2 ml/min; Phosphorus 3.6 mg/dl (2.5-4.9); Potassium 4.5 mmol/L (3.5-5.1)
--- NOTE | 2022-01-18 18:29 | Hospitalist Progress Note ---
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); Nephrology and psychiatry interventions noted and appreciatedwill defer (3) Hypomagnesemia: Plan: Replace as appropriate (4) Anemia: Plan: Some expected acute postop blood loss anemiafollow from our perspective; stable per the last 2 checks (5) Hypothyroidism: Plan: Slightly increased thyroid replacement given #2prior TSH 5.61, recent 1.729 (note prior levothyroxine dose was 88 mcg that I had increased to 100 mcg)-no further change (6) Depression: Plan: Psychiatry consultation noted and appreciated (7) Anxiety: Plan: As above (8) Tobacco use: Plan: Cessation recommended (9) Alcohol abuse: Plan: As noted in HPI, no clinical withdrawalfollow; at baseline could have poor solute intake contributing to hyponatremia Plan Nutrition consult Admission and Anticipated Discharge Date Admission Date: January 12, 2022 Subjective Follow-up of original presentation with left hip pain, s/p THR -course complicated by impressively worsened hyponatremia; no symptoms as such Physical Exam Physical Exam: Constitutional and general: No acute distress, looks biologic age Head and face: No puffiness, atraumatic Eyes: No scleral icterus, extraocular movements normal Neck: Supple, no JVD Skin/dermatologic/integument: No rash, no purpura Hematologic and lymphatic: pallor +, no petechia Gastrointestinal/abdomen: Nondistended, soft, nonacute Neurologic: Cranial nerves intact, nonfocal Psychiatry: Awake, alert, pleasant, communicative Cardiovascular: Heart rhythm regular, no rub, no murmur, no gallop Respiratory: Chest movements equal, no use of accessory muscles, no adventitious sounds Extremities: No edema, no cyanosis Results & Data Results & Data ([facility]) Vital Signs (Past 12 Hours) Vital Signs Temp Pulse Pulse Resp BP Pulse Ox O2 Del Method 01/18/22 15:49 36.7 C 98 H 18 89/52 L 95 Room Air 01/18/22 08:00 101 H 01/18/22 07:53 36.8 C 93 H 18 96/60 L 97 Room Air Laboratory Results Laboratory Results - last 24 hr 01/17/22 01/17/22 01/18/22 17:30 19:48 08:56 Sodium 121 L 125 L Potassium 4.0 3.9 Chloride 92 L 95 L Carbon Dioxide 23 25 Anion Gap 6 5 BUN 14 11 Creatinine 0.71 0.63 Est Cr Clr Drug Dosing 65.5 76.6 Est GFR ( Amer) 105.8 111.4 Est GFR (Non-Af Amer) 91.3 96.1 BUN/Creatinine Ratio 19.7 17.5 Glucose 101 H 123 H Uric Acid 4.2 Calcium 8.0 L 8.1 L Phosphorus Magnesium 1.7 TSH Urine Osmolality 429 L 01/18/22 01/18/22 01/18/22 08:56 11:21 16:42 Sodium 125 L 130 L Potassium 4.5 Chloride 101 Carbon Dioxide 25 Anion Gap 4 BUN 11 Creatinine 0.67 Est Cr Clr Drug Dosing 72.0 Est GFR ( Amer) 109.2 Est GFR (Non-Af Amer) 94.2 BUN/Creatinine Ratio 16.4 Glucose 105 H Uric Acid Calcium 7.8 L Phosphorus 3.6 Magnesium TSH 1.729 Urine Osmolality PG Care Time/CCT Total # of Minutes Spent Total Time Spent with Patient: Total time spent is greater than 50% in coordination of care (as documented) at patient's floor/unit and/or counseling patient: Coding Level of Care Code 13772 Subseq Hosp Care Lvl 2 Diagnoses Left hip pain M25.552 Hyponatremia E87.1 Hypomagnesemia E83.42 Anemia D64.9 Hypothyroidism E03.9 Depression F32.9 Anxiety F41.9 Tobacco use Z72.0 Alcohol abuse F10.10
[2022-01-18] MEDS: LIDOCAINE 5% 1 PATCH TD SCH (20:29)
[2022-01-19] MEDS: LEVOTHYROXINE SODIUM 100 MCG TABLET PO SCH (05:38)
[2022-01-19] MEDS: ACETAMINOPHEN 500 MG TAB PO SCH ×3 (05:38→21:10)
[2022-01-19] MEDS: oxyCODONE HCL IR 5 MG TAB (IMMEDIATE RELEASE) PO PRN ×2 (05:41→20:07)
--- NOTE | 2022-01-19 07:38 | Orthopedic Progress Note ---
Date of Service January 19, 2022 Assessment & Plan (1) Status post left hip replacement: Her sodium is improving. She is participating with physical therapy. Right now she has touch toe weightbearing on the left leg and she really needs to work on extending her left hip and her left knee. She was seen by psychiatry yesterday and they will taper down her Paxil dosing. She is orthopedically stable for discharge when medically ready and when a bed becomes available. Aspirin for DVT prophylaxis. Full discharge instructions were already placed in the discharge summary. Britta Luz was seen and examined at bedside this morning. Overall she is doing okay. She is not having as much pain in the left hip. She was able to participate with physical therapy yesterday. She was seen by psychiatry and they will taper down her Paxil. Her sodium is improving. She has no new complaints.. Review of Systems All systems reviewed & are unremarkable except as noted in HPI & below. Physical Exam Lamination of her left hip, the dressing is clean and dry. There is no signs of dislocation. She is still lying there with her hip and knee flexed at about 90 degrees.. Results & Data Results & Data Laboratory Results . Diagnostic Findings . PG Care Time/CCT Total # of Minutes Spent Total Time Spent with Patient: Total time spent is greater than 50% in coordination of care (as documented) at patient's floor/unit and/or counseling patient: Coding Level of Care Code 53832 Post Operative Follow-Up Diagnoses Status post left hip replacement Z96.642
[2022-01-19 07:42] LABS: Calcium 8.1 mg/dl (8.5-10.1); Creatinine Clr Calc Pharmacy 96.5 ml/min; Est GFR (African American) 120.2 ml/min; Est GFR (Non-African American) 103.7 ml/min; Magnesium 1.5 mg/dl (1.7-2.4); Potassium 4.2 mmol/L (3.5-5.1)
[2022-01-19] MEDS: THIAMINE HCL 100 MG TAB PO SCH (09:02)
[2022-01-19] MEDS: SODIUM CHLORIDE 1 GM TABLET PO SCH ×2 (09:02→13:45)
[2022-01-19] MEDS: PANTOprazole 40 MG TAB PO SCH (09:02)
[2022-01-19] MEDS: FOLIC ACID 1 MG TAB PO SCH (09:02)
[2022-01-19] MEDS: FERROUS SULFATE 325 MG TAB PO SCH (09:02)
[2022-01-19] MEDS: MULTIVITAMIN TAB PO SCH (09:03)
[2022-01-19] MEDS: MAGNESIUM OXIDE 400 MG TAB PO SCH ×2 (09:03→20:03)
[2022-01-19] MEDS: POLYETHYLENE (MIRALAX) 17 GM PACK PO SCH (09:03)
[2022-01-19] MEDS: SENNA 8.6 MG TAB PO SCH ×2 (09:03→20:04)
[2022-01-19] MEDS: MAGNESIUM SULFATE / D5W 1 GM/100 ML BAG IV SCH ×2 (09:03→11:52)
[2022-01-19] MEDS: ASPIRIN 81 MG ECTAB PO SCH ×2 (09:03→20:04)
[2022-01-19] MEDS: ALPRAZolam 0.5 MG TABLET PO SCH ×2 (09:06→20:06)
--- NOTE | 2022-01-19 09:28 | Nephrology Progress Note ---
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 Paroxetine is being weaned per psychiatry recommendations. Sodium improving appropriately following infusion of 2% saline. Urine osmolality to be updated this AM. NaCl 1 gram BID added this AM. Free water restriction 1.8 L daily. 2 grams MgSO4 provided. Encourage dietary protein intake. Close outpatient follow up will be required post discharge. Repeat sodium this afternoon to assure continued improvement. (2) Hypothyroidism: Plan: TSH acceptable. Remains on levothyroxine 100 mcg daily. (3) Status post left hip replacement: Plan: Adequate pain control. (4) Postoperative urinary retention: Plan: Urology follow up to be completed post discharge. Admission and Anticipated Discharge Date Admission Date: January 12, 2022 Subjective No acute events overnight. Overall, Sukh feels well this AM. Hoping to be discharged home. Pain controlled. Review of Systems Review of Systems: All systems reviewed & are unremarkable except as noted in HPI & below Physical Exam Constitutional: well developed and + thin; no acute distress Eyes: no scleral abnormality and no corneal abnormality ENMT: Mouth: + dry oral mucous membranes; no oral mucosal abnormality Neck: normal visual inspection and trachea midline Respiratory: normal respiratory effort Auscultation: lungs clear to auscultation bilaterally Cardiovascular: Rate/Rhythm: regular rate Heart Sounds: normal S1 and normal S2 Extremities: no edema Musculoskeletal: Extremities: no cyanosis and no clubbing Skin: normal turgor and + turgor decreased; no lesions Neurologic: Motor/Sensory: no tremor and no asterixis Psychiatric: Orientation: alert and oriented x 3 Results & Data ([facility]) Vital Signs (Past 12 Hours) Vital Signs Temp Pulse Pulse Resp BP BP Pulse Ox 01/19/22 07:19 101 H 01/19/22 06:39 36.7 C 106 H 18 101/63 93 01/19/22 03:04 36.7 C 111 H 18 92/53 L 100 01/18/22 22:18 102 H 01/18/22 23:03 36.7 C 107 H 18 100/62 94 O2 Del Method 01/19/22 07:19 01/19/22 06:39 Room Air 01/19/22 03:04 Room Air 01/18/22 22:18 07/24/22 23:03 Room Air Laboratory Results Laboratory Results - last 24 hr 01/18/22 01/18/22 01/18/22 08:56 08:56 11:21 Sodium 125 L 125 L Potassium 3.9 Chloride 95 L Carbon Dioxide 25 Anion Gap 5 BUN 11 Creatinine 0.63 Est Cr Clr Drug Dosing 76.6 Est GFR ( Amer) 111.4 Est GFR (Non-Af Amer) 96.1 BUN/Creatinine Ratio 17.5 Glucose 123 H Uric Acid 4.2 Calcium 8.1 L Phosphorus Magnesium 1.7 TSH 1.729 01/18/22 01/18/22 01/19/22 16:42 21:26 05:52 Sodium 130 L 130 L 131 L Potassium 4.5 4.2 Chloride 101 103 Carbon Dioxide 25 22 Anion Gap 4 6 BUN 11 11 Creatinine 0.67 0.50 L Est Cr Clr Drug Dosing 72.0 96.5 Est GFR ( Amer) 109.2 120.2 Est GFR (Non-Af Amer) 94.2 103.7 BUN/Creatinine Ratio 16.4 22.0 H Glucose 105 H 87 Uric Acid Calcium 7.8 L 8.1 L Phosphorus 3.6 Magnesium 1.5 L TSH PG Care Time/CCT Total # of Minutes Spent Total Time Spent with Patient: Total time spent is greater than 50% in coordination of care (as documented) at patient's floor/unit and/or counseling patient: Coding Level of Care Code 59383 Subseq Hosp Care Lvl 3 Diagnoses Hyponatremia E87.1 Hypothyroidism E03.9 Status post left hip replacement Z96.642 Postoperative urinary retention N99.89; R33.8
[2022-01-19] MEDS: PARoxetine HCL 20 MG TAB PO SCH (10:14)
[2022-01-19] MEDS ORDERED: SODIUM CHLORIDE 1 GM TABLET PO SCH (14:00)
--- NOTE | 2022-01-19 14:33 | Hospitalist Progress Note ---
Date of Service January 19, 2022 Assessment & Plan (1) Status post left hip replacement: Plan: Pain management per orthopedics (2) Hyponatremia: Plan: - 130-131, baseline for patient upon review of recent labs. - 2g NaCl BID management per nephrology. Concern for SIADH and rapidly weaning off paroxetine. Planning on 20mg PO tomorrow then stop (3) Hypomagnesemia: Plan: - 1.5, on daily magnesium supplementation. - Mg sulphate 2g IV per nephrology - Repeat level in AM (4) Anemia: Plan: - Chronic, on daily p.o. iron and folic acid supplementation. - Hgb near baseline today. - Previously low normal B12 192 - start supplementation for this with cyanocobalamin 1000 mcg PO daily (5) Hypothyroidism: Plan: - Continue levothyroxine 100mcg daily. (6) Depression: Plan: - Continue to wean paroxetine per psych recommendations, down to 20mg PO daily tomorrow. - Monitor for paroxetine withdrawal symptoms which can be severe - dizziness, fatigue, headache, nausea, agitation, anxiety, diaphoresis, insomnia, irritability, myalgias, paresthesias, tremor. Could consider fluoxetine if this occurs to lessen withdrawal effects. (7) Anxiety: Plan: - Continue alprazolam 0.5 mg twice daily, as needed. - Will defer switching to Klonopin to psychiatry (8) Tobacco use: Plan: - Reports smoking 1 PPD; declines nicotine patch at this time. (9) Alcohol abuse: Plan: - History of per chart review, patient denies this. - Continue folic acid supplementation. (10) Postoperative urinary retention: Plan: Plan to TWOC in approximately 5-7 days post operatively per urology note Plan - continued admission pending placement. Please contact the medical team on discharge to update the discharge medications. She is medically stable for discharge at this time pending placement. Thank you for the consult, we will continue to see while she is admitted. - ASA 81mg PO BID per orthopedics - Full Code. Admission and Anticipated Discharge Date Admission Date: January 12, 2022 Subjective No BM for a week, pt report not unusual for her and does not want to increase her laxatives as previously when she took a lot of MiraLAX it started to pour out of her. Otherwise doing well. No nausea, vomiting, dizziness, fatigue, headache, agitation, anxiety, diaphoresis, insomnia, irritability, myalgias, paresthesias, tremor. Review of Systems Review of Systems: All systems reviewed & are unremarkable except as noted in Subjective Physical Exam Constitutional: WD/WN, vitals as above Respiratory: normal respiratory effort, lungs clear to auscultation Cardiovascular: RRR, no murmur, no edema Gastrointestinal (Abdomen): normal bowel sounds, soft, nontender, no hepatosplenomegaly Results & Data Results & Data ([facility]) Vital Signs (Past 12 Hours) Vital Signs Temp Pulse Pulse Resp BP BP Pulse Ox 01/19/22 11:07 36.7 C 89 20 97/57 L 99 01/19/22 07:19 101 H 01/19/22 06:39 36.7 C 106 H 18 101/63 93 01/19/22 03:04 36.7 C 111 H 18 92/53 L 100 O2 Del Method 01/19/22 11:07 Room Air 01/19/22 07:19 01/19/22 06:39 Room Air 01/19/22 03:04 Room Air PG Care Time/CCT Total # of Minutes Spent Total Time Spent with Patient: Total time spent is greater than 50% in coordination of care (as documented) at patient's floor/unit and/or counseling patient: Coding Level of Care Code 17337 Subseq Hosp Care Lvl 2 Diagnoses Status post left hip replacement Z96.642 Hyponatremia E87.1 Hypomagnesemia E83.42 Anemia D64.9 Hypothyroidism E03.9 Depression F32.9 Anxiety F41.9 Tobacco use Z72.0 Alcohol abuse F10.10 Postoperative urinary retention N99.89; R33.8
[2022-01-19] MEDS ORDERED: SODIUM CHLORIDE 3 % 100 ML IV ONE ×3 (17:10→22:21)
[2022-01-19] MEDS: LIDOCAINE 5% 1 PATCH TD SCH (20:04)
[2022-01-20] MEDS: LEVOTHYROXINE SODIUM 100 MCG TABLET PO SCH (05:43)
[2022-01-20] MEDS: ACETAMINOPHEN 500 MG TAB PO SCH ×3 (05:44→21:45)
[2022-01-20 07:19] LABS: BUN Creatinine Ratio 24.2 (10-20); Calcium 8.3 mg/dl (8.5-10.1); Creatinine Clr Calc Pharmacy 77.8 ml/min; Est GFR (Non-African American) 96.6 ml/min; Magnesium 1.4 mg/dl (1.7-2.4); Potassium 4.5 mmol/L (3.5-5.1)
[2022-01-20] MEDS: MAGNESIUM SULFATE / D5W 1 GM/100 ML BAG IV SCH ×3 (08:14→12:27)
[2022-01-20] MEDS: ALPRAZolam 0.5 MG TABLET PO SCH ×2 (08:21→21:42)
[2022-01-20] MEDS: POLYETHYLENE (MIRALAX) 17 GM PACK PO SCH (08:21)
[2022-01-20] MEDS: SENNA 8.6 MG TAB PO SCH ×2 (08:21→21:31)
[2022-01-20] MEDS: SODIUM CHLORIDE 1 GM TABLET PO SCH ×2 (08:22→16:22)
[2022-01-20] MEDS: ASPIRIN 81 MG ECTAB PO SCH ×2 (08:22→21:29)
[2022-01-20] MEDS: THIAMINE HCL 100 MG TAB PO SCH (08:23)
[2022-01-20] MEDS: MULTIVITAMIN TAB PO SCH (08:23)
[2022-01-20] MEDS: MAGNESIUM OXIDE 400 MG TAB PO SCH ×2 (08:23→21:31)
[2022-01-20] MEDS: CYANOCOBALAMIN (B-12) 500 MCG TABLET PO SCH (08:24)
[2022-01-20] MEDS: FOLIC ACID 1 MG TAB PO SCH (08:24)
[2022-01-20] MEDS: PANTOprazole 40 MG TAB PO SCH (08:24)
[2022-01-20] MEDS: FERROUS SULFATE 325 MG TAB PO SCH (08:25)
[2022-01-20] MEDS ORDERED: PARoxetine HCL 20 MG TAB PO SCH (09:00)
--- NOTE | 2022-01-20 09:30 | Nephrology Progress Note ---
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 Paroxetine is being weaned per psychiatry recommendations. Uosm remains notably elevated at 562 yesterday. Continues to require aggressive NaCl replacement. Remains in slightly positive fluid balance with 1.8 L daily fluid restriction. Appears closer to euvolemic today. No additional IV replacement required. Continue oral NaCl 2 gram BID. Free water restriction 1.8 L daily. Continue PO magnesium replacement. Encourage dietary protein intake. Close outpatient follow up will be required. Will repeat serum sodium in AM, if inpatient. If discharged, check metabolic profile within 1 week. Outpatient nephrology follow up within 1-2 weeks of discharge. (2) Status post left hip replacement: Plan: Discharge to rehab pending bed availability and insurance auth. Admission and Anticipated Discharge Date Admission Date: January 12, 2022 Subjective No acute events overnight. Temp 38 c this AM, repeat 36.9. Denies subjective fevers or chills. Overall, Sukh feels well. She is hoping to be discharged. She denies pain. No chest pain or palpitations. No fluid retention or edema. Sukh has been out of bed and denies any lightheadedness, dizziness, syncope or presyncope. Review of Systems Review of Systems: All systems reviewed & are unremarkable except as noted in HPI & below Physical Exam Constitutional: well developed and + thin; no acute distress Eyes: no scleral abnormality and no corneal abnormality ENMT: Mouth: + dry oral mucous membranes; no oral mucosal abnormality Neck: normal visual inspection and trachea midline Respiratory: normal respiratory effort Auscultation: lungs clear to auscultation bilaterally Cardiovascular: Rate/Rhythm: regular rate Heart Sounds: normal S1 and n ormal S2 Extremities: no edema Musculoskeletal: Extremities: no cyanosis and no clubbing Skin: normal turgor and + turgor decreased; no lesions Neurologic: Motor/Sensory: no tremor and no asterixis Psychiatric: Orientation: alert and oriented x 3 Results & Data ([facility]) Vital Signs (Past 12 Hours) Vital Signs Temp Pulse Pulse Resp BP Pulse Ox O2 Del Method 01/20/22 08:00 116 H 01/20/22 08:26 36.9 C 01/20/22 07:36 38.0 C H 115 H 16 136/83 92 Room Air 01/20/22 06:42 36.8 C 117 H 18 134/82 93 Room Air 01/20/22 02:54 37.2 C 97 H 18 109/71 90 Room Air 01/19/22 22:17 100 H 01/19/22 23:22 37.2 C 97 H 18 109/71 90 Room Air Laboratory Results Laboratory Results - last 24 hr 01/19/22 01/19/22 01/19/22 13:13 14:53 20:34 Sodium 130 L 130 L Potassium Chloride Carbon Dioxide Anion Gap BUN Creatinine Est Cr Clr Drug Dosing Est GFR ( Amer) Est GFR (Non-Af Amer) BUN/Creatinine Ratio Glucose Calcium Magnesium Urine Osmolality 562 01/20/22 06:21 Sodium 130 L Potassium 4.5 Chloride 102 Carbon Dioxide 24 Anion Gap 4 BUN 15 Creatinine 0.62 Est Cr Clr Drug Dosing 77.8 Est GFR ( Amer) 112.0 Est GFR (Non-Af Amer) 96.6 BUN/Creatinine Ratio 24.2 H Glucose 92 Calcium 8.3 L Magnesium 1.4 L Urine Osmolality PG Care Time/CCT Total # of Minutes Spent Total Time Spent with Patient: Total time spent is greater than 50% in coordination of care (as documented) at patient's floor/unit and/or counseling patient: Coding Level of Care Code 58817 Subseq Hosp Care Lvl 3 Diagnoses Hyponatremia E87.1 Status post left hip replacement Z96.642
[2022-01-20] MEDS: MoRPHine SULFATE 2 MG/ML CARP IV PRN (12:31)
--- NOTE | 2022-01-20 12:52 | Orthopedic Progress Note ---
Date of Service January 20, 2022 Assessment & Plan (1) Status post left hip replacement: Unfortunately she is still having trouble fully extending her left hip and her left knee. She will continue to work with physical therapy for that. She is touch toe weightbearing at this time. Her sodium seems to have stabilized. She is ready for discharge when a bed becomes available. Britta Luz was seen and examined at bedside this morning. She is not in too much pain in her left hip. She has been working with physical therapy trying to extend her left hip and her left knee. She is touch toe weightbearing. We are currently awaiting discharge placement. She has no new complaints.. Review of Systems All systems reviewed & are unremarkable except as noted in HPI & below. Physical Exam On physical examination of the left hip, she is lying with her hip flexed at 90 degrees in her knee flexed at 90 degrees. She is neurovascular intact. The dressing looks good.. Results & Data Results & Data Laboratory Results . Diagnostic Findings . PG Care Time/CCT Total # of Minutes Spent Total Time Spent with Patient: Total time spent is greater than 50% in coordination of care (as documented) at patient's floor/unit and/or counseling patient: Coding Level of Care Code 34281 Post Operative Follow-Up Diagnoses Status post left hip replacement Z96.642
--- NOTE | 2022-01-20 17:36 | Hospitalist Progress Note ---
Date of Service January 20, 2022 Assessment & Plan (1) Status post left hip replacement: Plan: Pain management per orthopedics (2) Hyponatremia: Plan: - 130-131, baseline for patient upon review of recent labs. - 2g NaCl BID management per nephrology. Concern for SIADH and rapidly weaning off paroxetine. Last day of paroxetine today. (3) Hypomagnesemia: Plan: - 1.4, on daily magnesium supplementation. - Mg sulphate 2g IV - Repeat level in AM (4) Anemia: Plan: - Chronic, on daily p.o. iron and folic acid supplementation. - Hgb near baseline today. - Previously low normal B12 192 - start supplementation for this with cyanocobalamin 1000 mcg PO daily (5) Hypothyroidism: Plan: - Continue levothyroxine 100mcg daily. (6) Depression: Plan: - Continue to wean paroxetine per psych recommendations, down to 20mg PO daily today then stop. - Monitor for paroxetine withdrawal symptoms which can be severe - dizziness, fatigue, headache, nausea, agitation, anxiety, diaphoresis, insomnia, irritability, myalgias, paresthesias, tremor. Could consider fluoxetine if this occurs to lessen withdrawal effects. (7) Anxiety: Plan: - Continue alprazolam 0.5 mg twice daily, as needed. - Will defer switching to Klonopin to psychiatry (8) Tobacco use: Plan: - Reports smoking 1 PPD; declines nicotine patch at this time. (9) Alcohol abuse: Plan: - History of per chart review, patient denies this. - Continue folic acid supplementation. (10) Postoperative urinary retention: Plan: Plan to TWOC in approximately 5-7 days post operatively per urology note Plan - continued admission pending placement. Please contact the medical team on discharge to update the discharge medications. She is medically stable for discharge at this time pending placement. Thank you for the consult, we will continue to see while she is admitted. - ASA 81mg PO BID per orthopedics - Full Code. Admission and Anticipated Discharge Date Admission Date: January 12, 2022 Subjective No acute events overnight. No current concerns or questions. Awaiting placement at this time. Possible slightly more depressed coming off paroxetine but wishes to continue on taper Review of Systems Review of Systems: All systems reviewed & are unremarkable except as noted in Subjective Physical Exam Constitutional: WD/WN, vitals as above Respiratory: normal respiratory effort, lungs clear to auscultation Cardiovascular: RRR, no murmur, no edema Gastrointestinal (Abdomen): normal bowel sounds, soft, nontender, no hepatosplenomegaly Results & Data Results & Data ([facility]) Vital Signs (Past 12 Hours) Vital Signs Temp Pulse Pulse Resp BP Pulse Ox O2 Del Method 01/20/22 15:44 109 H 01/20/22 14:56 36.8 C 115 H 16 110/67 97 Room Air 01/20/22 11:24 37.1 C 110 H 16 128/80 92 Room Air 01/20/22 08:00 116 H 01/20/22 08:26 36.9 C 01/20/22 07:36 38.0 C H 115 H 16 136/83 92 Room Air 01/20/22 06:42 36.8 C 117 H 18 134/82 93 Room Air PG Care Time/CCT Total # of Minutes Spent Total Time Spent with Patient: Total time spent is greater than 50% in coordination of care (as documented) at patient's floor/unit and/or counseling patient: Coding Level of Care Code 56058 Subseq Hosp Care Lvl 1 Diagnoses Status post left hip replacement Z96.642 Hyponatremia E87.1 Hypomagnesemia E83.42 Anemia D64.9 Hypothyroidism E03.9 Depression F32.9 Anxiety F41.9 Tobacco use Z72.0 Alcohol abuse F10.10 Postoperative urinary retention N99.89; R33.8
[2022-01-20] MEDS: CYCLOBENZAPRINE HCL 10 MG TAB PO PRN (21:42)
[2022-01-20] MEDS: LIDOCAINE 5% 1 PATCH TD SCH (21:45)
[2022-01-21] MEDS: oxyCODONE HCL IR 5 MG TAB (IMMEDIATE RELEASE) PO PRN ×2 (02:05→16:45)
[2022-01-21] MEDS: ACETAMINOPHEN 500 MG TAB PO SCH ×3 (05:43→20:51)
[2022-01-21] MEDS: LEVOTHYROXINE SODIUM 100 MCG TABLET PO SCH (05:47)
--- NOTE | 2022-01-21 07:00 | Orthopedic Progress Note ---
Date of Service January 21, 2022 Assessment & Plan (1) Status post left hip replacement: Overall she seems to be slowly improving. She is awaiting for discharge to rehab facility. We will try to have therapy work on extension of her hip and her knee. I will see her in the office about 2 weeks from the day of surgery for staple removal. At that time, if she is not regaining extension of her hip or her knee then we may consider casting under anesthesia. She is on aspirin for DVT prophylaxis. She can be discharged to a rehab facility when a bed becomes available. Britta Luz was seen and examined at bedside this morning. Overall she is slowly impr oving. She is working on getting her leg out extended. She has been seen by physical therapy. She has no new complaints.. Review of Systems All systems reviewed & are unremarkable except as noted in HPI & below. Physical Exam On physical examination of her left hip this morning, her hip is flexed at 90 degrees and her knee is flexed at 90 degrees when I entered the room. She is able to easily and slowly extend her hip and leg to about 30 degrees of flexion of the hip and the knee. The dressing is still clean and dry.. Results & Data Results & Data Laboratory Results . Diagnostic Findings . PG Care Time/CCT Total # of Minutes Spent Total Time Spent with Patient: Total time spent is greater than 50% in coordination of care (as documented) at patient's floor/unit and/or counseling patient: Coding Level of Care Code 18317 Post Operative Follow-Up Diagnoses Status post left hip replacement Z96.642
[2022-01-21 08:32] LABS: BUN Creatinine Ratio 17.6 (10-20); Calcium 8.3 mg/dl (8.5-10.1); Creatinine Clr Calc Pharmacy 94.6 ml/min; Est GFR (African American) 119.4 ml/min; Est GFR (Non-African American) 103.1 ml/min; Magnesium 1.5 mg/dl (1.7-2.4); Potassium 4.1 mmol/L (3.5-5.1)
[2022-01-21] MEDS: ALPRAZolam 0.5 MG TABLET PO SCH ×2 (08:37→20:07)
[2022-01-21] MEDS: THIAMINE HCL 100 MG TAB PO SCH (08:37)
[2022-01-21] MEDS: PANTOprazole 40 MG TAB PO SCH (08:38)
[2022-01-21] MEDS: SODIUM CHLORIDE 1 GM TABLET PO SCH ×2 (08:38→16:45)
[2022-01-21] MEDS: MULTIVITAMIN TAB PO SCH (08:38)
[2022-01-21] MEDS: FOLIC ACID 1 MG TAB PO SCH (08:39)
[2022-01-21] MEDS: MAGNESIUM OXIDE 400 MG TAB PO SCH ×2 (08:39→20:09)
[2022-01-21] MEDS: FERROUS SULFATE 325 MG TAB PO SCH (08:40)
[2022-01-21] MEDS: CYANOCOBALAMIN (B-12) 500 MCG TABLET PO SCH (08:40)
[2022-01-21] MEDS: ASPIRIN 81 MG ECTAB PO SCH ×2 (08:41→20:08)
[2022-01-21] MEDS: SENNA 8.6 MG TAB PO SCH ×2 (08:41→20:08)
[2022-01-21] MEDS: POLYETHYLENE (MIRALAX) 17 GM PACK PO SCH (08:43)
[2022-01-21] MEDS: CYCLOBENZAPRINE HCL 10 MG TAB PO PRN ×2 (08:46→20:07)
--- NOTE | 2022-01-21 09:21 | Nephrology Progress Note ---
Date of Service January 21, 2022 Assessment & Plan (1) Hyponatremia: Plan: Prerenal and a component of underlying SIADH (possible associated with SSRI). Paroxetine weaned off. Sodium stable. Continue oral NaCl 2 gram BID. Free water restriction 1.8 L daily. Continue PO magnesium replacement. Encourage dietary protein intake. Sukh remains stable for discharge from a nephrology perspective. Avoid increasing free water - 1.8 L free water restriction maintained for now. (2) Status post left hip replacement: Plan: Discharge to rehab pending bed availability. Admission and Anticipated Discharge Date Admission Date: January 12, 2022 Subjective No acute events overnight. Sukh states that she feels well and is frustrated that she is still in the hospital. She would like to go home. She is frustrated by lack of physical therapy. She is discouraged overall. She denies pain. Appetite is fair. She would like to liberalize her free water restriction. Review of Systems Review of Systems: All systems reviewed & are unremarkable except as noted in HPI & below Physical Exam Constitutional: well developed and + thin; no acute distress Eyes: no scleral abnormality and no corneal abnormality ENMT: Mouth: no oral mucosal abnormality and oral mucous membranes not dry Neck: normal visual inspection and trachea midline Respiratory: normal respiratory effort Auscultation: lungs clear to auscultation bilaterally Cardiovascular: Rate/Rhythm: regular rate Heart Sounds: normal S1 and normal S2 Extremities: no edema Musculoskeletal: Extremities: no cyanosis and no clubbing Skin: normal turgor and + turgor decreased; no lesions Neurologic: Motor/Sensory: no tremor and no asterixis Psychiatric: Orientation: alert and cooperative Results & Data ([facility]) Vital Signs (Past 12 Hours) Vital Signs Temp Pulse Pulse Resp BP Pulse Ox O2 Del Method 01/20/22 22:16 102 H 01/21/22 04:22 36.8 C 107 H 20 115/73 94 Room Air Laboratory Results Laboratory Results - last 24 hr 01/20/22 01/21/22 16:50 06:56 Sodium 129 L 130 L Potassium 4.1 Chloride 101 Carbon Dioxide 23 Anion Gap 6 BUN 9 Creatinine 0.51 L Est Cr Clr Drug Dosing 94.6 Est GFR ( Amer) 119.4 Est GFR (Non-Af Amer) 103.1 BUN/Creatinine Ratio 17.6 Glucose 87 Calcium 8.3 L Magnesium 1.5 L PG Care Time/CCT Total # of Minutes Spent Total Time Spent with Patient: Total time spent is greater than 50% in coordination of care (as documented) at patient's floor/unit and/or counseling patient: Coding Level of Care Code 03750 Subseq Hosp Care Lvl 3 Diagnoses Hyponatremia E87.1 Status post left hip replacement Z96.642
[2022-01-21] MEDS ORDERED: SODIUM CHLORIDE 3 % 150 ML IV ONE ×2 (09:30→18:11)
[2022-01-21] MEDS: MAGNESIUM SULFATE / D5W 1 GM/100 ML BAG IV SCH ×2 (10:21→12:26)
[2022-01-21] MEDS: MoRPHine SULFATE 2 MG/ML CARP IV PRN (12:34)
[2022-01-21] MEDS: LIDOCAINE 5% 1 PATCH TD SCH (20:09)
[2022-01-22] MEDS: MoRPHine SULFATE 2 MG/ML CARP IV PRN (00:03)
[2022-01-22] MEDS: LEVOTHYROXINE SODIUM 100 MCG TABLET PO SCH (04:59)
[2022-01-22] MEDS: ACETAMINOPHEN 500 MG TAB PO SCH ×3 (04:59→21:31)
[2022-01-22 06:42] LABS: BUN Creatinine Ratio 14.3 (10-20); Calcium 8.4 mg/dl (8.5-10.1); Creatinine Clr Calc Pharmacy 86.2 ml/min; Est GFR (African American) 115.8 ml/min; Est GFR (Non-African American) 99.9 ml/min; Magnesium 1.6 mg/dl (1.7-2.4); Potassium 3.9 mmol/L (3.5-5.1)
--- NOTE | 2022-01-22 06:59 | Hospitalist Progress Note ---
Date of Service January 21, 2022 Assessment & Plan (1) Status post left hip replacement: Plan: Pain management per orthopedics (2) Hyponatremia: Plan: - 130-131, baseline for patient upon review of recent labs. - 2g NaCl BID, 3% saline per nephrology orders, continue on fluid restriction management per nephrology. Concern for SIADH and rapidly weaning off paroxetine. Now weaned off paroxetine. (3) Hypomagnesemia: Plan: - 1.5, on daily magnesium supplementation. - Mg sulphate 2g IV - Repeat level in AM (4) Anemia: Plan: - Chronic, on daily p.o. iron and folic acid supplementation. - Hgb near baseline today. - Previously low normal B12 192 - start supplementation for this with cyanocobalamin 1000 mcg PO daily (5) Hypothyroidism: Plan: - Continue levothyroxine 100mcg daily. (6) Depression: Plan: - Now weaned off paroxetine. - Monitor for paroxetine withdrawal symptoms which can be severe - dizziness, fatigue, headache, nausea, agitation, anxiety, diaphoresis, insomnia, irritability, myalgias, paresthesias, tremor. Could consider fluoxetine if this occurs to lessen withdrawal effects. (7) Anxiety: Plan: - Continue alprazolam 0.5 mg twice daily, as needed. - Will defer switching to Klonopin to psychiatry (8) Tobacco use: Plan: - Reports smoking 1 PPD; declines nicotine patch at this time. (9) Alcohol abuse: Plan: - History of per chart review, patient denies this. - Continue folic acid supplementation. (10) Postoperative urinary retention: Plan: Plan to TWOC in approximately 5-7 days post operatively per urology note Plan - continued admission pending placement. Please contact the medical team on discharge to update the discharge medications. She is medically stable for discharge at this time pending placement. Thank you for the consult, we will continue to see while she is admitted. - ASA 81mg PO BID per orthopedics - Full Code. Admission and Anticipated Discharge Date Admission Date: January 12, 2022 Subjective Patient upset today about lack of progress on discharge for rehabilitation. Ok to trial without catheter today. Otherwise no questions or concerns. No significant withdrawal symptoms from weaning paroxetine. Review of Systems Review of Systems: All systems reviewed & are unremarkable except as noted in Subjective Physical Exam Constitutional: WD/WN, vitals as above Respiratory: normal respiratory effort, lungs clear to auscultation Cardiovascular: RRR, no murmur, no edema Results & Data Results & Data ([facility]) Vital Signs (Past 12 Hours) Vital Signs Temp Pulse Pulse Pulse Resp BP BP 01/22/22 04:27 36.9 C 116 H 18 114/73 01/21/22 22:53 37.2 C 94 H 18 119/72 01/21/22 23:10 115 H 01/21/22 20:00 Pulse Ox O2 Del Method 01/22/22 04:27 93 Room Air 01/21/22 22:53 94 Room Air 01/21/22 23:10 01/21/22 20:00 Room Air PG Care Time/CCT Total # of Minutes Spent Total Time Spent with Patient: Total time spent is greater than 50% in coordination of care (as documented) at patient's floor/unit and/or counseling patient: Coding Level of Care Code 94541 Subseq Hosp Care Lvl 1 Diagnoses Status post left hip replacement Z96.642 Hyponatremia E87.1 Hypomagnesemia E83.42 Anemia D64.9 Hypothyroidism E03.9 Depression F32.9 Anxiety F41.9 Tobacco use Z72.0 Alcohol abuse F10.10 Postoperative urinary retention N99.89; R33.8
[2022-01-22] MEDS: POLYETHYLENE (MIRALAX) 17 GM PACK PO SCH (08:06)
[2022-01-22] MEDS: ALPRAZolam 0.5 MG TABLET PO SCH ×2 (08:19→21:34)
[2022-01-22] MEDS: MULTIVITAMIN TAB PO SCH (08:20)
[2022-01-22] MEDS: FERROUS SULFATE 325 MG TAB PO SCH (08:20)
[2022-01-22] MEDS: SENNA 8.6 MG TAB PO SCH ×2 (08:20→21:31)
[2022-01-22] MEDS: THIAMINE HCL 100 MG TAB PO SCH (08:20)
[2022-01-22] MEDS: MAGNESIUM OXIDE 400 MG TAB PO SCH ×2 (08:20→21:32)
[2022-01-22] MEDS: PANTOprazole 40 MG TAB PO SCH (08:20)
[2022-01-22] MEDS: ASPIRIN 81 MG ECTAB PO SCH ×2 (08:21→21:30)
[2022-01-22] MEDS: CYANOCOBALAMIN (B-12) 500 MCG TABLET PO SCH (08:21)
[2022-01-22] MEDS: FOLIC ACID 1 MG TAB PO SCH (08:21)
[2022-01-22] MEDS: SODIUM CHLORIDE 1 GM TABLET PO SCH ×2 (08:25→17:36)
[2022-01-22] MEDS ORDERED: MAGNESIUM SULFATE / D5W 1 GM/100 ML BAG IV ONE (08:35)
[2022-01-22] MEDS: oxyCODONE HCL IR 5 MG TAB (IMMEDIATE RELEASE) PO PRN ×2 (11:36→23:06)
--- NOTE | 2022-01-22 12:07 | Nephrology Progress Note ---
Date of Service January 22, 2022 Assessment & Plan (1) Hyponatremia: Plan: Prerenal and a component of underlying SIADH (possible associated with SSRI). Tolerating stopping paroxetine well. OK to hold oral NaCl at this time. Continue free water restriction 1.8 L daily. Consider treatments for gastritis associated with oral NaCl, including PPI, H2 doyle, or even K effervescent. If sodium remains low and unable to tolerate NaCl in the future, may consider Ure-Na therapy. Continue PO magnesium replacement. Encourage dietary protein intake. I would anticipate potential continued improvement in ADH production with time, consider repeating urine osmolality prior to liberalizing free water restriction. Sukh remains stable for discharge from a nephrology perspective. Avoid increasing free water for now. (2) Status post left hip replacement: Plan: Discharge to rehab pending bed availability. Admission and Anticipated Discharge Date Admission Date: January 12, 2022 Subjective No acute events overnight. Experiencing some nausea with oral NaCl. Otherwise, feels well. Hopeful to be discharged. Review of Systems Review of Systems: All systems reviewed & are unremarkable except as noted in HPI & below Physical Exam Constitutional: well developed and + thin; no acute distress Eyes: no scleral abnormality and no corneal abnormality ENMT: Mouth: no oral mucosal abnormality and oral mucous membranes not dry Neck: normal visual inspection and trachea midline Respiratory: normal respiratory effort Auscultation: lungs clear to au scultation bilaterally Cardiovascular: Rate/Rhythm: + tachycardic Heart Sounds: normal S1 and normal S2 Extremities: no edema Musculoskeletal: Extremities: no cyanosis and no clubbing Skin: normal turgor and + turgor decreased; no lesions Neurologic: Motor/Sensory: no tremor and no asterixis Psychiatric: Orientation: alert, oriented x 3 and cooperative Results & Data ([facility]) Vital Signs (Past 12 Hours) Vital Signs Temp Pulse Pulse Pulse Resp BP Pulse Ox 01/22/22 11:13 36.8 C 104 H 20 121/76 95 01/22/22 10:19 108 H 01/22/22 07:45 36.5 C 103 H 20 120/76 95 01/22/22 04:27 36.9 C 116 H 18 114/73 93 O2 Del Method 01/22/22 11:13 01/22/22 10:19 01/22/22 07:45 01/22/22 04:27 Room Air Laboratory Results Laboratory Results - last 24 hr 01/21/22 01/22/22 17:06 05:58 Sodium 131 L 133 L Potassium 3.9 Chloride 104 Carbon Dioxide 23 Anion Gap 6 BUN 8 Creatinine 0.56 L Est Cr Clr Drug Dosing 86.2 Est GFR ( Amer) 115.8 Est GFR (Non-Af Amer) 99.9 BUN/Creatinine Ratio 14.3 Glucose 88 Calcium 8.4 L Magnesium 1.6 L PG Care Time/CCT Total # of Minutes Spent Total Time Spent with Patient: Total time spent is greater than 50% in coordination of care (as documented) at patient's floor/unit and/or counseling patient: Coding Level of Care Code 87814 Subseq Hosp Care Lvl 3 Diagnoses Hyponatremia E87.1 Status post left hip replacement Z96.642
--- NOTE | 2022-01-22 12:11 | Orthopedic Progress Note ---
Date of Service January 22, 2022 Assessment & Plan (1) Status post left hip replacement: At this point, she is doing about as well as expected. I keep reminding her of the importance of regaining extension of her left hip and her left knee. She is currently touch toe weightbearing on the left leg. We are awaiting placement in a rehab facility. She is orthopedically stable for discharge when a bed becomes available. She will follow-up with orthopedics in 2 weeks. Britta Luz was seen and examined at bedside this morning. Overall she is doing okay. She has no new complaints. She is trying to work with physical therapy.. Review of Systems All systems reviewed & are unremarkable except as noted in HPI & below. Physical Exam On physical examination of the left hip, she is sitting with the left hip flexed at 90 degrees and her knee flexed at 90 degrees. I can extend her out to about 30 degrees. The dressing looks good.. Results & Data Results & Data Laboratory Results . Diagnostic Findings . PG Care Time/CCT Total # of Minutes Spent Total Time Spent with Patient: Total time spent is greater than 50% in coordination of care (as documented) at patient's floor/unit and/or counseling patient: Coding Level of Care Code 35808 Post Operative Follow-Up Diagnoses Status post left hip replacement Z96.642
--- NOTE | 2022-01-22 12:42 | Hospitalist Progress Note ---
Date of Service January 22, 2022 Assessment & Plan (1) Status post left hip replacement: Plan: Pain management per orthopedics (2) Hyponatremia: Plan: - 130-131, baseline for patient upon review of recent labs. -Patient refusing sodium salt tablets. will continue on fluid restriction d/w Nephro, will recheck sodium in AM. management per nephrology. Concern for SIADH and rapidly weaning off paroxetine. Now weaned off paroxetine. (3) Hypomagnesemia: Plan: - 1.6, on daily magnesium supplementation. - Mg sulphate 2g IV - Replenished today. will recheck in AM. (4) Anemia: Plan: - Chronic, on daily p.o. iron and folic acid supplementation. - Hgb near baseline today. - Previously low normal B12 192 - start supplementation for this with cyanocobalamin 1000 mcg PO daily (5) Hypothyroidism: Plan: - Continue levothyroxine 100mcg daily. (6) Depression: Plan: - Now weaned off paroxetine. - Monitor for paroxetine withdrawal symptoms which can be severe - dizziness, fatigue, headache, nausea, agitation, anxiety, diaphoresis, insomnia, irritability, myalgias, paresthesias, tremor. Could consider fluoxetine if this occurs to lessen withdrawal effects. (7) Anxiety: Plan: - Continue alprazolam 0.5 mg twice daily, as needed. - Will defer switching to Klonopin to psychiatry (8) Tobacco use: Plan: - Reports smoking 1 PPD; declines nicotine patch at this time. (9) Alcohol abuse: Plan: - History of per chart review, patient denies this. - Continue folic acid supplementation. (10) Postoperative urinary retention: Plan: Plan to TWOC in approximately 5-7 days post operatively per urology note Plan - continued admission pending placement. Please contact the medical team on discharge to update the discharge medications. She is medically stable for discharge at this time pending placement. Thank you for the consult, we will continue to see while she is admitted. - ASA 81mg PO BID per orthopedics - Full Code. Admission and Anticipated Discharge Date Admission Date: January 12, 2022 Subjective Patient reports no new symptoms. She refused her sodium tablets due to nausea yesterday. Patient also had questions regarding rehab for her hip. Review of Systems Review of Systems: All systems reviewed & are unremarkable except as noted in HPI & below Physical Exam Constitutional: WD/WN, vitals as above ENMT: external ear and nose normal, oropharynx normal Neck: trachea midline, no thyromegaly Respiratory: normal respiratory effort, lungs clear to auscultation Cardiovascular: RRR, no murmur, no edema Gastrointestinal (Abdomen): normal bowel sounds, soft, nontender, no hepatosplenomegaly Results & Data Results & Data ([facility]) Vital Signs (Past 12 Hours) Vital Signs Temp Pulse Pulse Pulse Resp BP Pulse Ox 01/22/22 11:13 36.8 C 104 H 20 121/76 95 01/22/22 10:19 108 H 01/22/22 07:45 36.5 C 103 H 20 120/76 95 01/22/22 04:27 36.9 C 116 H 18 114/73 93 O2 Del Method 01/22/22 11:13 01/22/22 10:19 01/22/22 07:45 01/22/22 04:27 Room Air PG Care Time/CCT Total # of Minutes Spent Total Time Spent with Patient: Total time spent is greater than 50% in coordination of care (as documented) at patient's floor/unit and/or counseling patient: Coding Level of Care Code 64326 Subseq Hosp Care Lvl 3 Diagnoses Status post left hip replacement Z96.642 Hyponatremia E87.1 Hypomagnesemia E83.42 Anemia D64.9 Hypothyroidism E03.9 Depression F32.9 Anxiety F41.9 Tobacco use Z72.0 Alcohol abuse F10.10 Postoperative urinary retention N99.89; R33.8 Time Spent (min) 35
[2022-01-22] MEDS: CYCLOBENZAPRINE HCL 10 MG TAB PO PRN ×2 (14:53→21:34)
[2022-01-22] MEDS: LIDOCAINE 5% 1 PATCH TD SCH (21:31)
[2022-01-23] MEDS: oxyCODONE HCL IR 5 MG TAB (IMMEDIATE RELEASE) PO PRN ×4 (05:39→22:55)
[2022-01-23] MEDS: ACETAMINOPHEN 500 MG TAB PO SCH ×3 (05:41→21:58)
[2022-01-23] MEDS: LEVOTHYROXINE SODIUM 100 MCG TABLET PO SCH (05:41)
[2022-01-23 07:29] LABS: Hematocrit (blood only) 24.7 % (34.1-44.9); Hemoglobin 8.2 g/dl (12.0-16.0); Mean Corpuscular Hemoglobin 30.4 pg (25.0-34.0); Mean Corpuscular Hgb Conc 33.2 g/dL (32.0-36.0); Mean Corpuscular Volume 91.5 fL (80.0-100.0); Platelet Count 492 K/uL (130-400); RDW Coefficient of Variation 12.4 % (11.5-14.5); RDW Standard Deviation 41.3 fL (36.4-46.3); White Blood Count 6.96 K/ul (4.8-10.8)
[2022-01-23 07:58] LABS: BUN Creatinine Ratio 14.8 (10-20); Calcium 8.4 mg/dl (8.5-10.1); Creatinine Clr Calc Pharmacy 79.1 ml/min; Est GFR (African American) 112.6 ml/min; Est GFR (Non-African American) 97.2 ml/min; Magnesium 1.6 mg/dl (1.7-2.4); Potassium 4.2 mmol/L (3.5-5.1)
[2022-01-23] MEDS: MAGNESIUM OXIDE 400 MG TAB PO SCH ×2 (08:10→22:56)
[2022-01-23] MEDS: SENNA 8.6 MG TAB PO SCH (08:10)
[2022-01-23] MEDS: CYANOCOBALAMIN (B-12) 500 MCG TABLET PO SCH (08:11)
[2022-01-23] MEDS: FERROUS SULFATE 325 MG TAB PO SCH (08:11)
[2022-01-23] MEDS: PANTOprazole 40 MG TAB PO SCH (08:11)
[2022-01-23] MEDS: MULTIVITAMIN TAB PO SCH (08:11)
[2022-01-23] MEDS: ASPIRIN 81 MG ECTAB PO SCH ×2 (08:11→22:55)
[2022-01-23] MEDS: THIAMINE HCL 100 MG TAB PO SCH (08:11)
[2022-01-23] MEDS: SODIUM CHLORIDE 1 GM TABLET PO SCH ×2 (08:11→17:37)
[2022-01-23] MEDS: FOLIC ACID 1 MG TAB PO SCH (08:11)
[2022-01-23] MEDS: ALPRAZolam 0.5 MG TABLET PO SCH ×2 (08:14→21:58)
[2022-01-23] MEDS: POLYETHYLENE (MIRALAX) 17 GM PACK PO SCH (08:14)
[2022-01-23] MEDS: MAGNESIUM SULFATE / D5W 1 GM/100 ML BAG IV SCH ×2 (09:59→11:12)
--- NOTE | 2022-01-23 10:21 | Nephrology Progress Note ---
Date of Service January 23, 2022 Assessment & Plan (1) Hyponatremia: Plan: Prerenal and a component of underlying SIADH (possible associated with SSRI which has been weaned off). Continue free water restriction 1.8 L daily. Oral NaCl as tolerated. Encouraged dietary sodium otherwise. Consider K effervescent to assist with any gastritis symptoms. If sodium remains low and unable to tolerate NaCl in the future, may consider Ure-Na therapy. Continue PO magnesium replacement. Encourage dietary protein intake. Sukh remains stable for discharge from a nephrology perspective. Avoid increasing free water for now. (2) Status post left hip replacement: Plan: Discharge to rehab pending bed availability. Admission and Anticipated Discharge Date Admission Date: January 12, 2022 Subjective No acute events overnight. Sleeping comfortably this AM. Appetite fair. Denies pain. No GI symptoms reported. Review of Systems Review of Systems: All systems reviewed & are unremarkable except as noted in HPI & below Physical Exam Constitutional: well developed and + thin; no acute distress Eyes: no scleral abnormality and no corneal abnormality ENMT: Mouth: no oral mucosal abnormality and oral mucous membranes not dry Neck: normal visual inspection and trachea midline Respiratory: normal respiratory effort Auscultation: lungs clear to auscult ation bilaterally Cardiovascular: Rate/Rhythm: regular rate and + tachycardic Heart Sounds: normal S1 and normal S2 Extremities: no edema Musculoskeletal: Extremities: no cyanosis and no clubbing Skin: normal turgor and + turgor decreased; no lesions Neurologic: Motor/Sensory: no tremor and no asterixis Psychiatric: Orientation: alert, oriented x 3 and cooperative Results & Data ([facility]) Vital Signs (Past 12 Hours) Vital Signs Temp Pulse Pulse Resp BP Pulse Ox O2 Del Method 01/23/22 07:43 36.6 C 95 H 18 115/74 94 Room Air 01/23/22 04:00 36.6 C 107 H 18 125/80 93 Room Air 01/22/22 22:36 36.5 C 101 H 20 112/69 97 Room Air Laboratory Results Laboratory Results - last 24 hr 01/23/22 01/23/22 07:08 07:08 WBC 6.96 RBC 2.70 L Hgb 8.2 L Hct 24.7 L MCV 91.5 MCH 30.4 MCHC 33.2 RDW Std Deviation 41.3 RDW Coeff of Roland 12.4 Plt Count 492 H MPV 9.0 L Sodium 132 L Potassium 4.2 Chloride 102 Carbon Dioxide 25 Anion Gap 5 BUN 9 Creatinine 0.61 Est Cr Clr Drug Dosing 79.1 Est GFR ( Amer) 112.6 Est GFR (Non-Af Amer) 97.2 BUN/Creatinine Ratio 14.8 Glucose 94 Calcium 8.4 L Magnesium 1.6 L PG Care Time/CCT Total # of Minutes Spent Total Time Spent with Patient: Total time spent is greater than 50% in coordination of care (as documented) at patient's floor/unit and/or counseling patient: Coding Level of Care Code 57188 Subseq Hosp Care Lvl 3 Diagnoses Hyponatremia E87.1 Status post left hip replacement Z96.642
[2022-01-23] MEDS: CYCLOBENZAPRINE HCL 10 MG TAB PO PRN (12:31)
--- NOTE | 2022-01-23 16:27 | Orthopedic Progress Note ---
Date of Service January 23, 2022 Assessment & Plan (1) Status post left hip replacement: It seems like she is doing a little bit better. I really want to continue working on extension of her hip and her knee. The incision looks good. We will keep her touch toe weightbearing for now. We are currently awaiting discharge to rehab facility. She is on aspirin for DVT prophylaxis. She is orthopedically stable for discharge when a bed becomes available. Britta Luz was seen and examined at bedside this afternoon. She looks a lot better today. She is lying with her leg in abduction pillow and mostly straight. She says she has been working hard with physical therapy. She is still awaiting discharge.. Review of Systems All systems reviewed & are unremarkable except as noted in HPI & below. Physical Exam On physical examination of the left leg, she has abduction pillow in place. Her hip is flexed at about 20 degrees and her knee is flexed at about 20 degrees but is a big improvement from previous visits.. Results & Data Results & Data Laboratory Results . Diagnostic Findings . PG Care Time/CCT Total # of Minutes Spent Total Time Spent with Patient: Total time spent is greater than 50% in coordination of care (as documented) at patient's floor/unit and/or counseling patient: Coding Level of Care Code 26664 Post Operative Follow-Up Diagnoses Status post left hip replacement Z96.642
--- NOTE | 2022-01-23 20:54 | Hospitalist Progress Note ---
Date of Service January 23, 2022 Assessment & Plan (1) Status post left hip replacement: Plan: Pain management per orthopedics (2) Hyponatremia: Plan: - 130-131, baseline for patient upon review of recent labs. -Patient was refusing sodium salt tablets, now taking on 01/23. Sodium does appear to be at baseline. will continue on fluid restriction d/w Nephro, will recheck sodium in AM. management per nephrology. Concern for SIADH and rapidly weaning off paroxetine. Now weaned off paroxetine. (3) Hypomagnesemia: Plan: - 1.6, on daily magnesium supplementation. - Mg sulphate 2g IV - Replenished today. will recheck in AM. (4) Anemia: Plan: - Chronic, on daily p.o. iron and folic acid supplementation. - Hgb near baseline today. - Previously low normal B12 192 - start supplementation for this with cyanocobalamin 1000 mcg PO daily (5) Hypothyroidism: Plan: - Continue levothyroxine 100mcg daily. (6) Depression: Plan: - Now weaned off paroxetine. - Monitor for paroxetine withdrawal symptoms which can be severe - dizziness, fatigue, headache, nausea, agitation, anxiety, diaphoresis, insomnia, irritability, myalgias, paresthesias, tremor. Could consider fluoxetine if this occurs to lessen withdrawal effects. (7) Anxiety: Plan: - Continue alprazolam 0.5 mg twice daily, as needed. - Will defer switching to Klonopin to psychiatry (8) Tobacco use: Plan: - Reports smoking 1 PPD; declines nicotine patch at this time. (9) Alcohol abuse: Plan: - History of per chart review, patient denies this. - Continue folic acid supplementation. (10) Postoperative urinary retention: Plan: Plan to TWOC in approximately 5-7 days post operatively per urology note Plan - continued admission pending placement. Please contact the medical team on discharge to update the discharge medications. She is medically stable for discharge at this time pending placement. Thank you for the consult, we will continue to see while she is admitted. - ASA 81mg PO BID per orthopedics - Full Code. Admission and Anticipated Discharge Date Admission Date: January 12, 2022 Subjective Patient reports no new symptoms today. Review of Systems Review of Systems: All systems reviewed & are unremarkable except as noted in HPI & below Physical Exam Constitutional: WD/WN, vitals as above ENMT: external ear and nose normal, oropharynx normal Neck: trachea midline, no thyromegaly Respiratory: normal respiratory effort, lungs clear to auscultation Cardiovascular: RRR, no murmur, no edema Gastrointestinal (Abdomen): normal bowel sounds, soft, nontender, no hepatosplenomegaly Results & Data Results & Data ([facility]) Vital Signs (Past 12 Hours) Vital Signs Temp Pulse Pulse Pulse Resp BP Pulse Ox 01/23/22 19:00 36.3 C L 97 H 18 105/67 99 01/23/22 15:32 36.6 C 94 H 18 102/64 95 01/23/22 15:10 99 H 01/23/22 11:14 94 H O2 Del Method 01/23/22 19:00 Room Air 01/23/22 15:32 Room Air 01/23/22 15:10 01/23/22 11:14 PG Care Time/CCT Total # of Minutes Spent Total Time Spent with Patient: Total time spent is greater than 50% in coordination of care (as documented) at patient's floor/unit and/or counseling patient: Coding Level of Care Code 39980 Subseq Hosp Care Lvl 2 Diagnoses Status post left hip replacement Z96.642 Hyponatremia E87.1 Hypomagnesemia E83.42 Anemia D64.9 Hypothyroidism E03.9 Depression F32.9 Anxiety F41.9 Tobacco use Z72.0 Alcohol abuse F10.10 Postoperative urinary retention N99.89; R33.8 Time Spent (min) 25
[2022-01-23] MEDS: LIDOCAINE 5% 1 PATCH TD SCH (22:55)
[2022-01-24] MEDS: SENNA 8.6 MG TAB PO SCH ×3 (03:15→20:31)
[2022-01-24] MEDS: ACETAMINOPHEN 500 MG TAB PO SCH ×3 (05:16→20:31)
[2022-01-24] MEDS: oxyCODONE HCL IR 5 MG TAB (IMMEDIATE RELEASE) PO PRN ×4 (05:16→20:31)
[2022-01-24] MEDS: LEVOTHYROXINE SODIUM 100 MCG TABLET PO SCH (05:40)
[2022-01-24 06:55] LABS: Hematocrit (blood only) 24.3 % (34.1-44.9); Mean Corpuscular Hgb Conc 32.9 g/dL (32.0-36.0); Mean Platelet Volume 8.7 fL (9.4-12.3); Platelet Count 484 K/uL (130-400); RDW Coefficient of Variation 12.3 % (11.5-14.5); RDW Standard Deviation 40.7 fL (36.4-46.3); Red Blood Count 2.67 M/uL (3.93-5.22); White Blood Count 6.51 K/ul (4.8-10.8)
[2022-01-24 07:16] LABS: BUN Creatinine Ratio 15.5 (10-20); Calcium 8.3 mg/dl (8.5-10.1); Creatinine Clr Calc Pharmacy 83.2 ml/min; Est GFR (African American) 114.5 ml/min; Est GFR (Non-African American) 98.8 ml/min; Potassium 3.9 mmol/L (3.5-5.1)
--- NOTE | 2022-01-24 07:28 | Orthopedic Progress Note ---
Date of Service January 24, 2022 Assessment & Plan (1) Status post left hip replacement: Overall she is doing about as well as expected. I am very encouraged that she can extend her left hip better. She will continue to work with physical therapy for that. She is on aspirin for DVT prophylaxis. She is touch toe weightbearing on her left leg. We are just trying to give a chance for everything to heal. We are currently awaiting placement in a rehab facility. She is orthopedically stable for discharge when a bed becomes available.. Britta Luz was seen and examined at bedside this morning. Overall she is doing okay. She not been too much pain in the left hip. She has been working hard at regaining her hip extension. When I entered the room, her knee and her hip or flexed about 90 degrees. She was able to easily extend her leg during my visit. We are currently waiting placement. She has no new complaints.. Review of Systems All systems reviewed & are unremarkable except as noted in HPI & below. Physical Exam On physical examination of the left hip, her hip was flexed and adducted when I entered the room. Her knee heights were equal. She was able to easily extend her hip to about 15 degrees. There is no signs of dislocation at this point. Her incision is clean and dry. She has active dorsiflexion plantarflexion of her left ankle.. Results & Data Results & Data Laboratory Results . Diagnostic Findings . PG Care Time/CCT Total # of Minutes Spent Total Time Spent with Patient: Total time spent is greater than 50% in coordination of care (as documented) at patient's floor/unit and/or counseling patient: Coding Level of Care Code 95315 Post Operative Follow-Up Diagnoses Status post left hip replacement Z96.642
[2022-01-24] MEDS: ALPRAZolam 0.5 MG TABLET PO SCH ×2 (08:15→20:30)
[2022-01-24] MEDS: PANTOprazole 40 MG TAB PO SCH (08:15)
[2022-01-24] MEDS: THIAMINE HCL 100 MG TAB PO SCH (08:15)
[2022-01-24] MEDS: FERROUS SULFATE 325 MG TAB PO SCH (08:15)
[2022-01-24] MEDS: MULTIVITAMIN TAB PO SCH (08:15)
[2022-01-24] MEDS: CYCLOBENZAPRINE HCL 10 MG TAB PO PRN ×2 (08:15→20:31)
[2022-01-24] MEDS: CYANOCOBALAMIN (B-12) 500 MCG TABLET PO SCH (08:15)
[2022-01-24] MEDS: FOLIC ACID 1 MG TAB PO SCH (08:15)
[2022-01-24] MEDS: MAGNESIUM OXIDE 400 MG TAB PO SCH ×2 (08:15→20:32)
[2022-01-24] MEDS: SODIUM CHLORIDE 1 GM TABLET PO SCH ×2 (08:16→16:31)
[2022-01-24] MEDS: ASPIRIN 81 MG ECTAB PO SCH ×2 (08:16→20:32)
[2022-01-24] MEDS: POLYETHYLENE (MIRALAX) 17 GM PACK PO SCH (08:16)
--- NOTE | 2022-01-24 11:15 | Nephrology Progress Note ---
Date of Service January 24, 2022 Assessment & Plan (1) Hyponatremia: Plan: * Elevated Uosm suggestive of SIADH * Agree w/ holding SSRI * Will provide low dose Furosemide to promote free water excretion * Monitor Uosm, PRP * Continue NaCl 2g po BID * Liberalized free water restriction to 2 L/day (2) Status post left hip replacement: Plan: * Discharge to rehab pending bed availability Admission and Anticipated Discharge Date Admission Date: January 12, 2022 Subjective Mrs. Tate was evaluated in her hospital room this morning. She is tolerating NaCl tablets without GI upset but requests liberalization of oral fluid restriction Review of Systems Constitutional: no fever Eyes: no problem reported Ear, Nose, Mouth, Throat: no problem reported Respiratory: no cough and no dyspnea Cardiovascular: no chest pain Gastrointestinal: no abdominal pain, no nausea and no diarrhea/loose stools Genitourinary: no dysuria Physical Exam Constitutional: + thin; not in distress Eyes: PERRL, conjunctivae normal, anicteric sclerae ENMT: external ear and nose normal, oropharynx normal Neck: trachea midline, no thyromegaly Respiratory: normal respiratory effort, lungs clear to auscultation Cardiovascular: RRR, no murmur, no edema Gastrointestinal (Abdomen): normal bowel sounds, soft, nontender, no hepatosplenomegaly Neurologic: awake; not confused Results & Data ([facility]) Vital Signs (Past 12 Hours) Vital Signs Temp Pulse Resp BP BP Pulse Ox O2 Del Method 01/24/22 07:22 36.6 C 97 H 18 100/57 L 94 Room Air 01/24/22 03:22 36.5 C 75 18 113/69 97 Room Air 01/23/22 23:23 36.3 C L 90 18 105/68 96 Room Air Laboratory Results Laboratory Tests 01/24/22 01/24/22 06:46 06:46 WBC 6.51 Hgb 8.0 L Hct 24.3 L Plt Count 484 H Sodium 132 L Potassium 3.9 Chloride 103 Carbon Dioxide 23 BUN 9 Creatinine 0.58 L Glucose 89 Calcium 8.3 L PG Care Time/CCT Total # of Minutes Spent Total Time Spent with Patient: Total time spent is greater than 50% in coordination of care (as documented) at patient's floor/unit and/or counseling patient: Coding Level of Care Code 03213 Subseq Hosp Care Lvl 3 Diagnoses Hyponatremia E87.1 Status post left hip replacement Z96.642
[2022-01-24 15:26] LABS: Ferritin 326.4 ng/ml (8-388)
[2022-01-24 15:32] LABS: Folate (Folic Acid) > 22.30 ng/ml (>5.38); Vitamin B12 431 pg/ml (180-914)
--- NOTE | 2022-01-24 15:55 | Hospitalist Progress Note ---
Date of Service January 24, 2022 Assessment & Plan (1) Status post left hip replacement: Plan: Pain management per orthopedics (2) Hyponatremia: Plan: - 130-131, baseline for patient upon review of recent labs. -Patient was refusing sodium salt tablets, now taking on 01/23. Sodium does appear to be at baseline. will continue on fluid restriction d/w Nephro, will recheck sodium in AM. management per nephrology. Concern for SIADH and rapidly weaning off paroxetine. Now weaned off paroxetine. (3) Hypomagnesemia: Plan: - 1.6, on daily magnesium supplementation. - will rehceck in AM. (4) Anemia: Plan: - Chronic, on daily p.o. iron and folic acid supplementation. - Hgb near baseline today. - Previously low normal B12 192 - start supplementation for this with cyanocobalamin 1000 mcg PO daily will recheck vit b12 and iron studies on 01/24 (5) Hypothyroidism: Plan: - Continue levothyroxine 100mcg daily. (6) Depression: Plan: - Now weaned off paroxetine. - Monitor for paroxetine withdrawal symptoms which can be severe - dizziness, fatigue, headache, nausea, agitation, anxiety, diaphoresis, insomnia, irritability, myalgias, paresthesias, tremor. Could consider fluoxetine if this occurs to lessen withdrawal effects. (7) Anxiety: Plan: - Continue alprazolam 0.5 mg twice daily, as needed. - Will defer switching to Klonopin to psychiatry (8) Tobacco use: Plan: - Reports smoking 1 PPD; declines nicotine patch at this time. (9) Alcohol abuse: Plan: - History of per chart review, patient denies this. - Continue folic acid supplementation. (10) Postoperative urinary retention: Plan: Plan to TWO in approximately 5-7 days post operatively per urology note Plan - continued admission pending placement. Please contact the medical team on discharge to update the discharge medications. She is medically stable for discharge at this time pending placement. Thank you for the consult, we will continue to see while she is admitted. - ASA 81mg PO BID per orthopedics - Full Code. Admission and Anticipated Discharge Date Admission Date: January 12, 2022 Subjective 61 yo female reports feeling well. She has no new concerns. Review of Systems Review of Systems: All systems reviewed & are unremarkable except as noted in HPI & below Physical Exam Constitutional: WD/WN, vitals as above ENMT: external ear and nose normal, oropharynx normal Neck: trachea midline, no thyromegaly Respiratory: normal respiratory effort, lungs clear to auscultation Cardiovascular: RRR, no murmur, no edema Gastrointestinal (Abdomen): normal bowel sounds, soft, nontender, no hepatosplenomegaly Results & Data Results & Data ([facility]) Vital Signs (Past 12 Hours) Vital Signs Temp Pulse Resp BP Pulse Ox O2 Del Method 01/24/22 07:22 36.6 C 97 H 18 100/57 L 94 Room Air PG Care Time/CCT Total # of Minutes Spent Total Time Spent with Patient: Total time spent is greater than 50% in coordination of care (as documented) at patient's floor/unit and/or counseling patient: Coding Level of Care Code 45948 Subseq Hosp Care Lvl 2 Diagnoses Status post left hip replacement Z96.642 Hyponatremia E87.1 Hypomagnesemia E83.42 Anemia D64.9 Hypothyroidism E03.9 Depression F32.9 Anxiety F41.9 Tobacco use Z72.0 Alcohol abuse F10.10 Postoperative urinary retention N99.89; R33.8
[2022-01-24] MEDS: FUROSEMIDE 20 MG TAB PO SCH (16:39)
[2022-01-24] MEDS: LIDOCAINE 5% 1 PATCH TD SCH (20:32)
[2022-01-25] MEDS: oxyCODONE HCL IR 5 MG TAB (IMMEDIATE RELEASE) PO PRN ×4 (01:15→20:14)
[2022-01-25] MEDS: ACETAMINOPHEN 500 MG TAB PO SCH ×3 (05:47→21:01)
[2022-01-25] MEDS: LEVOTHYROXINE SODIUM 100 MCG TABLET PO SCH (05:47)
[2022-01-25] MEDS: ALPRAZolam 0.5 MG TABLET PO SCH ×2 (07:47→20:13)
[2022-01-25] MEDS: SODIUM CHLORIDE 1 GM TABLET PO SCH ×2 (07:47→17:02)
[2022-01-25] MEDS: CYCLOBENZAPRINE HCL 10 MG TAB PO PRN ×2 (07:47→14:33)
[2022-01-25] MEDS: SENNA 8.6 MG TAB PO SCH ×2 (07:47→20:10)
[2022-01-25] MEDS: MAGNESIUM OXIDE 400 MG TAB PO SCH ×2 (07:47→20:09)
[2022-01-25] MEDS: ASPIRIN 81 MG ECTAB PO SCH ×2 (07:48→20:10)
[2022-01-25] MEDS: FUROSEMIDE 20 MG TAB PO SCH ×2 (07:48→17:03)
[2022-01-25] MEDS: FERROUS SULFATE 325 MG TAB PO SCH (07:48)
[2022-01-25] MEDS: FOLIC ACID 1 MG TAB PO SCH (07:48)
[2022-01-25] MEDS: PANTOprazole 40 MG TAB PO SCH (07:48)
[2022-01-25] MEDS: THIAMINE HCL 100 MG TAB PO SCH (07:48)
[2022-01-25] MEDS: CYANOCOBALAMIN (B-12) 500 MCG TABLET PO SCH (07:49)
[2022-01-25] MEDS: MULTIVITAMIN TAB PO SCH (07:49)
[2022-01-25] MEDS: POLYETHYLENE (MIRALAX) 17 GM PACK PO SCH (07:49)
--- NOTE | 2022-01-25 08:45 | Nephrology Progress Note ---
Date of Service January 25, 2022 Assessment & Plan (1) Hyponatremia: Plan: * Serum sodium improved to 134 mmol/L today * Avoid SSRI if possible * Continue 2 L/day oral fluid restriction * Continue Furosemide 20 mg po BID to promote free water excretion * Continue NaCl 2g po BID * Monitor Uosm, PRP * If discharge is anticipated, please have patient follow up w/ Dr. Champagne in ~ 2 weeks (2) Anemia: Plan: * Hgb 9.1, iron saturation 11%, ferritin 326 * Will provide Venofer 200 mg IV daily for up to 5 doses while hospitalized (3) Status post left hip replacement: Plan: * Discharge to rehab pending bed availability Admission and Anticipated Discharge Date Admission Date: January 12, 2022 Subjective Mrs. Tate was evaluated in her hospital room this morning. She is tolerating NaCl tablets without GI upset. She is awaiting transfer to SNF for PT. Review of Systems Constitutional: no fever Eyes: no problem reported Ear, Nose, Mouth, Throat: no problem reported Respiratory: no cough and no dyspnea Cardiovascular: no chest pain Gastrointestinal: no abdominal pain, no nausea and no diarrhea/loose stools Genitourinary: no dysuria Physical Exam Constitutional: + thin; not in distress Eyes: PERRL, conjunctivae normal, anicteric sclerae ENMT: external ear and nose normal, oropharynx normal Neck: trachea midline, no thyromegaly Respiratory: normal respiratory effort, lungs clear to auscultation Cardiovascular: RRR, no murmur, no edema Gastrointestinal (Abdomen): normal bowel sounds, soft, nontender, no hepatosplenomegaly Neurologic: awake; not confused Results & Data ([facility]) Vital Signs (Past 12 Hours) Vital Signs Temp Pulse Pulse Resp BP Pulse Ox O2 Del Method 01/25/22 08:11 105 H 01/25/22 07:41 36.8 C 99 H 18 122/80 94 Room Air 01/25/22 03:14 37.1 C 106 H 16 118/73 96 Room Air 01/24/22 22:17 103 H 01/24/22 22:49 36.7 C 108 H 16 111/73 93 Room Air Laboratory Results Laboratory Tests 01/24/22 01/25/22 14:11 08:12 Sodium 134 L Potassium 4.3 Chloride 102 Carbon Dioxide 24 BUN 12 Creatinine 0.65 Est GFR (Non-Af Amer) 95.2 Iron 16 L Unsaturated IBC 137 L Ferritin 326.4 PG Care Time/CCT Total # of Minutes Spent Total Time Spent with Patient: Total time spent is greater than 50% in coordination of care (as documented) at patient's floor/unit and/or counseling patient: Coding Level of Care Code 63467 Subseq Hosp Care Lvl 3 Diagnoses Hyponatremia E87.1 Anemia D64.9 Status post left hip replacement Z96.642
[2022-01-25 08:51] LABS: Hemoglobin 9.1 g/dl (12.0-16.0); Mean Corpuscular Hemoglobin 29.8 pg (25.0-34.0); Mean Corpuscular Hgb Conc 32.5 g/dL (32.0-36.0); Mean Corpuscular Volume 91.8 fL (80.0-100.0); Mean Platelet Volume 9.2 fL (9.4-12.3); Platelet Count 657 K/uL (130-400); RDW Coefficient of Variation 12.5 % (11.5-14.5); RDW Standard Deviation 41.8 fL (36.4-46.3); Red Blood Count 3.05 M/uL (3.93-5.22); White Blood Count 7.15 K/ul (4.8-10.8)
[2022-01-25 09:20] LABS: BUN Creatinine Ratio 18.5 (10-20); Calcium 8.9 mg/dl (8.5-10.1); Creatinine Clr Calc Pharmacy 74.2 ml/min; Est GFR (African American) 110.3 ml/min; Est GFR (Non-African American) 95.2 ml/min; Magnesium 1.5 mg/dl (1.7-2.4); Potassium 4.3 mmol/L (3.5-5.1)
[2022-01-25] MEDS ORDERED: IRON SUCROSE 200 MG in 0.9 % SODIUM CHLORIDE 100 ML IV SCH (12:00)
--- NOTE | 2022-01-25 14:11 | Hospitalist Progress Note ---
Date of Service January 25, 2022 Assessment & Plan (1) Status post left hip replacement: Plan: Pain management per orthopedics (2) Hyponatremia: Plan: - 130-131, baseline for patient upon review of recent labs. -Patient was refusing sodium salt tablets, now taking on 01/23. Sodium does appear to be at baseline. will continue on fluid restriction d/w Nephro, will recheck sodium in AM. management per nephrology. Concern for SIADH and rapidly weaning off paroxetine. Now weaned off paroxetine. (3) Hypomagnesemia: Plan: - 1.6, on daily magnesium supplementation. -magnesium is being replaced. -has remained low on 01/25 (4) Anemia: Plan: - Chronic, on daily p.o. iron and folic acid supplementation. - Hgb near baseline today. - Previously low normal B12 192 - start supplementation for this with cyanocobalamin 1000 mcg PO daily will recheck vit b12 and iron studies on 01/24\ Does not appear to have iron def. anemia. will repeat blood work in AM. Due to tachycardia, will obtain a 2d echo. (5) Hypothyroidism: Plan: - Continue levothyroxine 100mcg daily. (6) Depression: Plan: - Now weaned off paroxetine. - Monitor for paroxetine withdrawal symptoms which can be severe - dizziness, fatigue, headache, nausea, agitation, anxiety, diaphoresis, insomnia, irritability, myalgias, paresthesias, tremor. Could consider fluoxetine if this occurs to lessen withdrawal effects. (7) Anxiety: Plan: - Continue alprazolam 0.5 mg twice daily, as needed. - Will defer switching to Klonopin to psychiatry (8) Tobacco use: Plan: - Reports smoking 1 PPD; declines nicotine patch at this time. (9) Alcohol abuse: Plan: - History of per chart review, patient denies this. - Continue folic acid supplementation. (10) Postoperative urinary retention: Plan: Plan to TWOC in approximately 5-7 days post operatively per urology note Plan - continued admission pending placement. Please contact the medical team on discharge to update the discharge medications. She is medically stable for discharge at this time pending placement. Thank you for the consult, we will continue to see while she is admitted. - ASA 81mg PO BID per orthopedics - Full Code. Admission and Anticipated Discharge Date Admission Date: January 12, 2022 Subjective 61 yo female reports no new symptoms. Review of Systems Review of Systems: All systems reviewed & are unremarkable except as noted in HPI & below Physical Exam Constitutional: WD/WN, vitals as above ENMT: external ear and nose normal, oropharynx normal Neck: trachea midline, no thyromegaly Respiratory: normal respiratory effort, lungs clear to auscultation Cardiovascular: tachycardic, No murmurs Gastrointestinal (Abdomen): normal bowel sounds, soft, nontender, no hepatosplenomegaly Results & Data Results & Data ([facility]) Vital Signs (Past 12 Hours) Vital Signs Temp Pulse Pulse Resp BP BP Pulse Ox 01/25/22 11:14 36.6 C 110 H 20 99/64 L 99 01/25/22 08:11 105 H 01/25/22 07:41 36.8 C 99 H 18 122/80 94 01/25/22 03:14 37.1 C 106 H 16 118/73 96 O2 Del Method 01/25/22 11:14 Room Air 01/25/22 08:11 01/25/22 07:41 Room Air 01/25/22 03:14 Room Air PG Care Time/CCT Total # of Minutes Spent Total Time Spent with Patient: Total time spent is greater than 50% in coordination of care (as documented) at patient's floor/unit and/or counseling patient: Coding Level of Care Code 90549 Subseq Hosp Care Lvl 3 Diagnoses Status post left hip replacement Z96.642 Hyponatremia E87.1 Hypomagnesemia E83.42 Anemia D64.9 Hypothyroidism E03.9 Depression F32.9 Anxiety F41.9 Tobacco use Z72.0 Alcohol abuse F10.10 Postoperative urinary retention N99.89; R33.8
[2022-01-25] MEDS: MAGNESIUM SULFATE / D5W 1 GM/100 ML BAG IV SCH ×2 (17:06→19:15)
[2022-01-25] MEDS: LIDOCAINE 5% 1 PATCH TD SCH (20:09)
[2022-01-26] MEDS: CYCLOBENZAPRINE HCL 10 MG TAB PO PRN ×2 (04:14→11:56)
[2022-01-26] MEDS: oxyCODONE HCL IR 5 MG TAB (IMMEDIATE RELEASE) PO PRN ×2 (05:41→11:55)
[2022-01-26] MEDS: ACETAMINOPHEN 500 MG TAB PO SCH (05:42)
[2022-01-26] MEDS: LEVOTHYROXINE SODIUM 100 MCG TABLET PO SCH (05:42)
[2022-01-26 07:24] LABS: Hematocrit (blood only) 24.8 % (34.1-44.9); Hemoglobin 8.3 g/dl (12.0-16.0); Mean Corpuscular Hemoglobin 30.1 pg (25.0-34.0); Mean Corpuscular Hgb Conc 33.5 g/dL (32.0-36.0); Mean Corpuscular Volume 89.9 fL (80.0-100.0); Mean Platelet Volume 9.1 fL (9.4-12.3); Platelet Count 624 K/uL (130-400); RDW Coefficient of Variation 12.5 % (11.5-14.5); RDW Standard Deviation 40.8 fL (36.4-46.3); Red Blood Count 2.76 M/uL (3.93-5.22); White Blood Count 7.41 K/ul (4.8-10.8)
[2022-01-26 07:58] LABS: Albumin Level 3.1 gm/dl (3.4-5.0); Bilirubin,Total 0.2 mg/dl (0.2-1.0); C Reactive Protein 5.34 mg/dl (0-0.5); Calcium 8.5 mg/dl (8.5-10.1); Creatinine Clr Calc Pharmacy 81.8 ml/min; Est GFR (African American) 113.9 ml/min; Est GFR (Non-African American) 98.2 ml/min; Magnesium 1.7 mg/dl (1.7-2.4); Phosphorus 4.5 mg/dl (2.5-4.9); Potassium 4.1 mmol/L (3.5-5.1); Total Protein 6.4 gm/dl (6.0-8.3)
--- NOTE | 2022-01-26 08:24 | Nephrology Progress Note ---
Date of Service January 26, 2022 Assessment & Plan (1) Hyponatremia: Plan: * Serum sodium remains stable at 132 mmol/L today * Avoid SSRI if possible * Continue 2 L/day oral fluid restriction * Continue Furosemide 20 mg po BID to promote free water excretion * Continue NaCl 2g po BID * Monitor Uosm, PRP * If discharge is anticipated, please have patient follow up w/ Dr. Champagne in ~ 2 weeks ( ) (2) Anemia: Plan: * Hgb 9.1, iron saturation 11%, ferritin 326 * Oral iron sulfate has been prescribed (3) Status post left hip replacement: Plan: * Discharge to rehab pending bed availability Admission and Anticipated Discharge Date Admission Date: January 12, 2022 Subjective Mrs. Tate was evaluated in her hospital room this morning. She is tolerating NaCl tablets without GI upset. She is awaiting transfer to SNF for PT. She hopes to be placed in a facility near her home in [place], [place] Review of Systems Constitutional: no fever Eyes: no problem reported Ear, Nose, Mouth, Throat: no problem reported Respiratory: no cough and no dyspnea Cardiovascular: no chest pain Gastrointestinal: no abdominal pain, no nausea and no diarrhea/loose stools Genitourinary: no dysuria Physical Exam Constitutional: + thin; not in distress Eyes: PERRL, conjunctivae normal, anicteric sclerae ENMT: external ear and nose normal, oropharynx normal Neck: trachea midline, no thyromegaly Respiratory: normal respiratory effort, lungs clear to auscultation Cardiovascular: RRR, no murmur, no edema Gastrointestinal (Abdomen): normal bowel sounds, soft, nontender, no hepatosplenomegaly Neurologic: awake; not confused Results & Data ([facility]) Vital Signs (Past 12 Hours) Vital Signs Temp Pulse Pulse Resp BP Pulse Ox O2 Del Method 01/26/22 07:50 36.3 C L 98 H 18 117/75 98 Room Air 01/26/22 03:46 36.3 C L 97 H 16 101/64 96 Room Air 01/25/22 23:23 97 H 01/25/22 23:02 36.8 C 96 H 16 113/72 94 Room Air Laboratory Results Laboratory Tests 01/26/22 01/26/22 06:53 06:53 WBC 7.41 Hgb 8.3 L Hct 24.8 L Plt Count 624 H Sodium 132 L Potassium 4.1 Chloride 101 Carbon Dioxide 25 BUN 13 Creatinine 0.59 L Glucose 85 Magnesium 1.7 Albumin 3.1 L PG Care Time/CCT Total # of Minutes Spent Total Time Spent with Patient: Total time spent is greater than 50% in coordination of care (as documented) at patient's floor/unit and/or counseling patient: Coding Level of Care Code 10899 Subseq Hosp Care Lvl 3 Diagnoses Hyponatremia E87.1 Anemia D64.9 Status post left hip replacement Z96.642
[2022-01-26] MEDS: PANTOprazole 40 MG TAB PO SCH (08:54)
[2022-01-26] MEDS: SENNA 8.6 MG TAB PO SCH (08:54)
[2022-01-26] MEDS: FOLIC ACID 1 MG TAB PO SCH (08:54)
[2022-01-26] MEDS: ASPIRIN 81 MG ECTAB PO SCH (08:54)
[2022-01-26] MEDS: MULTIVITAMIN TAB PO SCH (08:54)
[2022-01-26] MEDS: ALPRAZolam 0.5 MG TABLET PO SCH (08:55)
[2022-01-26] MEDS: MAGNESIUM OXIDE 400 MG TAB PO SCH (08:55)
[2022-01-26] MEDS: SODIUM CHLORIDE 1 GM TABLET PO SCH (08:55)
[2022-01-26] MEDS: FERROUS SULFATE 325 MG TAB PO SCH (08:56)
[2022-01-26] MEDS: THIAMINE HCL 100 MG TAB PO SCH (08:56)
[2022-01-26] MEDS: CYANOCOBALAMIN (B-12) 500 MCG TABLET PO SCH (08:56)
[2022-01-26] MEDS: FUROSEMIDE 20 MG TAB PO SCH (08:56)
[2022-01-26] MEDS: POLYETHYLENE (MIRALAX) 17 GM PACK PO SCH (08:58)
--- NOTE | 2022-01-26 10:45 | Orthopedic Progress Note ---
Date of Service January 26, 2022 Assessment & Plan (1) Status post left hip replacement: Overall she continues to improve. She is working hard to get in full extension back in her left hip and her left knee. She is on aspirin for DVT prophylaxis. She is touchdown weightbearing for now. She is orthopedically stable for discharge. She will follow-up with orthopedics in about a week. Britta Luz was seen and examined at bedside this morning. Overall she looks better. She is lying there with her leg near full extension. She has mild pain. No new complaints.. Review of Systems All systems reviewed & are unremarkable except as noted in HPI & below. Physical Exam On physical examination of the left hip, the incision is clean and dry. She is lying with her left heel elevated. Her knee is out at about 10 degrees. She has active dorsiflexion plantarflexion of her left ankle.. Results & Data Results & Data Laboratory Results . Diagnostic Findings . PG Care Time/CCT Total # of Minutes Spent Total Time Spent with Patient: Total time spent is greater than 50% in coordination of care (as documented) at patient's floor/unit and/or counseling patient: Coding Level of Care Code 57292 Post Operative Follow-Up Diagnoses Status post left hip replacement Z96.642
--- NOTE | 2022-01-26 10:48 | Discharge Summary ---
Date of Service January 26, 2022 Principal Diagnosis Same as "Discharge Diagnosis" noted below under Discharge Instructions. Discharge Exam On physical examination of the left hip, the incision is clean and dry. She is lying with her left heel elevated. Her knee is out at about 10 degrees. She has active dorsiflexion plantarflexion of her left ankle.. Discharge Data Consultations 01/12/22 15:29 ED Decision to Admit Stat 01/13/22 10:19 Consult Orthopedic Surgery Routine 01/16/22 05:06 Consult Urology Routine 01/17/22 12:17 Consult Nephrology Routine 01/17/22 12:18 Consult Psychiatry Routine Procedures Performed Operation Date: 01/15/22 13:15 Actual Procedures p Conversion to Total Hip Arthroplasty(Left) - Germán Murillo DO s Left Hip Removal Hardware(Left) - Germán Murillo DO Hospital Course (1) Status post left hip replacement: On January 12, 2022 Sukh came to [facility] with acute worsening left hip pain. She underwent cannulated screw fixation 4 months earlier. X-rays at the hospital showed complete collapse of the femoral head and protrusion of the screws into the pelvis. She had severe pain. Orthopedics was consulted. She was then taken to the operating room and underwent a left hip replacement without complication. Postoperatively she was started on aspirin for DVT prophylaxis and transferred back to the general orthopedic floors. Her hospital course was generally uneventful. She was kept touch toe weightbearing due to the relatively poor bone quality. She also had flexion contractures of her left hip and her left knee. Therapy was working at getting her left hip and her left knee back out to full extension. She was also dealing with some hyponatremia. She was transferred to a telemetry unit and monitored for possible seizures due to the low sodium levels. She remained asymptomatic. The insurance sales executive and the hospitalist were able to return her sodium levels to baseline. The therapist continue to work on extension of her left leg. She does live alone. Once a bed became available at a rehab facility, she was discharged and will follow-up with orthopedics 2 to 3 weeks from the day of surgery for suture removal. PG Care Time/CCT Total # of Minutes Spent Total Time Spent with Patient: Total time spent is greater than 50% in coordination of care (as documented) at patient's floor/unit and/or counseling patient: Discharge Plan Discharge Items Patient Disposition: Transfer Halfway Fac Reason For Visit: INTRACTABLE PAIN Discharge Diagnosis: Left hip replacement Condition on Discharge: Good Activity: Per Instructions section Non-emergency contact: Surgeon Call non-emergency contact if: your wound has increased redness and your wound has increased drainage Follow-up/Referrals: Horacio Morgan DO [Primary Care Provider] - Diet: Regular Addtl Attending Provider Instructions: Activity and Therapy Recommendations: Touch toe weightbearing on the left hip Continue to work on extension of the hip flexors and the left knee. When Sukh was asleep and under anesthesia, she had a 15 degree flexion contracture of her left hip and her left knee. Medications: * Narcotic You will likely be sent home from the hospital with a prescription for the narcotic pain medication that worked best throughout your stay. * Aspirin Most patients will be required to take Aspirin 81mg twice a day for 6 weeks after surgery. This is obtained [id number] and a prescription is not necessary. * Other medications may be prescribed for specific circumstances. If you have any questions, please call the office at . * Resume previous home medications unless otherwise instructed TEDs/Elastic Stockings: The white elastic stockings help limit swelling and prevent blood clots from forming in your legs. The more you wear them, the more they work. Wear them for six weeks. Showering: You may shower with the sallie exposed Let soapy water run over the sallie and pat them dry. Do not scrub or soak the incision. Things To Watch For: * Drainage from the incision site that occurs more than one week after your surgery. * Increased redness at the incision site. * Fever above 102 degrees Fahrenheit. * Unusual chest pain or shortness of breath. * Call [facility] at with any of the above problems Follow-Up Visit: Follow-up with Dr. Murillo's PA (Germán Noonan) 2-3 weeks after your day of surgery. He will remove your sallie and answer any questions. If you have any additional questions or concerns, Dr Murillo is usually in the office at the same time and will be available Please call the office to make an appointment for a time that works for you Addtl Development Chemist Provider Instructions: Psychiatry: We recommended a rapid taper to discontinuation of your Paxil due to concern it may be contributing to your low sodium. You took Paxil 40mg on 01/19/22 and should take Paxil 20mg on 01/20/22 and then stop. Do not restart it until discussing with your primary care doctor, you may want to consider an alternative medication for mood such as sertraline if your sodium remains stable and improved. In the next few months discuss with your primary care doctor about starting to taper your Xanax or considering a transition to a longer-acting medication for anxiety. Pending Studies at Discharge: No Stand-Alone Forms: My [facility] [employer], Smoking Cessation Skilled Items Patient informed of condition?: Yes DNR: No Discharge Level of Care: Skilled Communicable Disease: No Discharge Prognosis: Improving Lines: None Urinary Catheter: Yes Medications and DC Order Prescriptions: New aspirin 81 mg Tablet,Delayed Release (Dr/Ec) 81 mg PO BID 42 Days Qty: 84 0RF Continued omeprazole 20 mg capsule,delayed release(DR/EC) 20 mg PO QAM Qty: 90 0RF alprazolam 0.5 mg tablet 0.5 mg PO BID Qty: 60 0RF paroxetine HCl 20 mg tablet 20 mg PO DAILY Qty: 30 2RF Rx Instructions: TAKE THIS MED WITH PAROXETINE 40MG = 60MG DAILY. paroxetine HCl 40 mg tablet 40 mg PO DAILY Qty: 30 2RF Rx Instructions: TAKE THIS MED WITH 20MG PAROXETINE = 60MG DAILY. magnesium oxide 400 mg magnesium tablet 400 mg PO DAILY Qty: 30 0RF multivitamin [Daily Multi-Vitamin] Tablet 1 tab PO QAM etodolac 500 mg tablet 500 mg PO BID folic acid 1 mg Tablet 1 mg PO QAM ferrous sulfate 324 mg (65 mg iron) Tablet,Delayed Release (Dr/Ec) 324 mg PO QAM levothyroxine [Synthroid] 88 mcg tablet 88 mcg PO DAILYBB sennosides [senna] 8.6 mg Tablet 8.6 mg PO BID oxycodone-acetaminophen 5-325 mg Tablet 1 tab PO Q8H PRN (Reason: Pain) Qty: 30 0RF Discharge Orders: Discharge Order (Routine); Ordered 01/26/22 Ordered By: Germán Murillo Admission Data Admit Date/Time: 01/12/22 16:06 Attending Provider: Germán Murillo Admit Provider: Keyur Mendosa Primary Care Provider: Horacio Morgan Other Providers: Román Panda ; Keyur Mendosa ; Tom Soni ; Adam Michel ; Arie Champagne ; Rhiannon Montana ; Kamilah Huertas ; Julianna Polo ; Leo Rae
--- NOTE | 2022-01-26 11:37 | XCELERA ---
[id number]
--- NOTE | 2022-01-26 11:47 | Hospitalist Progress Note ---
Date of Service January 26, 2022 Assessment & Plan (1) Status post left hip replacement: Plan: Pain management per orthopedics (2) Hyponatremia: Plan: - 130-131, baseline for patient upon review of recent labs. -Patient was refusing sodium salt tablets, now taking on 01/23. Sodium does appear to be at baseline. will continue on fluid restriction management per nephrology. Concern for SIADH and rapidly weaning off paroxetine. Now weaned off paroxetine. (3) Hypomagnesemia: Plan: - 1.6, on daily magnesium supplementation. -magnesium is being replaced. (4) Anemia: Plan: - Chronic, on daily p.o. iron and folic acid supplementation. - Hgb near baseline today. - Previously low normal B12 192 - start supplementation for this with cyanocobalamin 1000 mcg PO daily will recheck vit b12 and iron studies on 01/24\ Does not appear to have iron def. anemia. will repeat blood work in AM. Due to tachycardia, will obtain a 2d echo. (5) Hypothyroidism: Plan: - Continue levothyroxine 100mcg daily. (6) Depression: Plan: - Now weaned off paroxetine. - Monitor for paroxetine withdrawal symptoms which can be severe - dizziness, fatigue, headache, nausea, agitation, anxiety, diaphoresis, insomnia, irritability, myalgias, paresthesias, tremor. -D/W psych, will place on seroquel for discharge. (7) Anxiety: Plan: - Continue alprazolam 0.5 mg twice daily, as needed. - switched to seroquel at discharge while continuing alprazolam as needed. Discharge instructions noted below. (8) Tobacco use: Plan: - Reports smoking 1 PPD; declines nicotine patch at this time. (9) Alcohol abuse: Plan: - History of per chart review, patient denies this. - Continue folic acid supplementation. (10) Postoperative urinary retention: Plan: Plan to TWOC in approximately 5-7 days post operatively per urology note Plan - continued admission pending placement. Please contact the medical team on discharge to update the discharge medications. She is medically stable for discharge at this time pending placement. Thank you for the consult, we will continue to see while she is admitted. - ASA 81mg PO BID per orthopedics - Full Code. Admission and Anticipated Discharge Date Admission Date: January 12, 2022 Subjective Patient reports no new symptoms. Review of Systems Review of Systems: All systems reviewed & are unremarkable except as noted in HPI & below Physical Exam Constitutional: WD/WN, vitals as above ENMT: external ear and nose normal, oropharynx normal Neck: trachea midline, no thyromegaly Respiratory: normal respiratory effort, lungs clear to auscultation Cardiovascular: RRR, no murmur, no edema Gastrointestinal (Abdomen): normal bowel sounds, soft, nontender, no hepatosplenomegaly Results & Data Results & Data ([facility]) Vital Signs (Past 12 Hours) Vital Signs Temp Pulse Resp BP Pulse Ox O2 Del Method 01/26/22 11:09 36.9 C 95 H 20 99/61 L 95 Room Air 01/26/22 07:50 36.3 C L 98 H 18 117/75 98 Room Air 01/26/22 03:46 36.3 C L 97 H 16 101/64 96 Room Air PG Care Time/CCT Total # of Minutes Spent Total Time Spent with Patient: Total time spent is greater than 50% in coordination of care (as documented) at patient's floor/unit and/or counseling patient: Coding Level of Care Code 16691 Subseq Hosp Care Lvl 3 Diagnoses Status post left hip replacement Z96.642 Hyponatremia E87.1 Hypomagnesemia E83.42 Anemia D64.9 Hypothyroidism E03.9 Depression F32.9 Anxiety F41.9 Tobacco use Z72.0 Alcohol abuse F10.10 Postoperative urinary retention N99.89; R33.8 Time Spent (min) 40
--- NOTE | 2022-01-26 12:38 | Electrocardiogram Report ---
Test Reason : Blood Pressure : / mmHG Vent. Rate : 099 BPM Atrial Rate : 099 BPM P-R Int : 170 ms QRS Dur : 080 ms QT Int : 376 ms P-R-T Axes : 075 082 071 degrees QTc Int : 482 ms Normal sinus rhythm Normal ECG No previous ECGs available Confirmed by David Benedict ([id number]) on 01/26/2022 12:37:38 PM Referred By: REFERRED SELF Confirmed By:Jay Benedict
--- NOTE | 2022-03-20 07:10 | Coding Query ---
CODING QUERY To promote full compliance with coding requirements relating to patient care, provider participation is requested in all cases of outpatient coder uncertainty. 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 the blood supply to the femoral head was disrupted by the fracture Physician's Response(s): Thank you Mitzi Bright Principal Diagnosis: "that condition established after study, to be chiefly responsible for occasioning the admission of the patient to the hospital for care." Co-Existing Principal Diagnosis: "when two or more diagnoses equally meet the criteria for principal diagnosis as determined by the circumstances of admission, diagnostic work up, and/or therapy provided, and the Alphabetic Index, Tabular List, or another coding guideline does not provide sequencing direction, any one of the diagnoses may be sequenced first." "When the physician has documented what appears to be a current diagnosis in the body of the record, but has not included the diagnosis in the final diagnostic statement, the physician should be asked whether the diagnosis should be added." (Source [facility]oding [facility] 2 QTR90. p3-4) ANGE
== END 2022-01-26 15:14 | DRG 470 ==
LOC: ED 10:26 → 3E 16:06 → SUATTDRO 16:06 → 3E 19:51 → 2N 01-18 02:03

== ENCOUNTER 2024-04-06 09:14 | Inpatient (IN) ==
--- NOTE | 2024-04-06 09:23 | Emergency Department Note ---
Impression & Plan Acute appendicitis, Hypomagnesemia, Hyponatremia, Sinus tachycardia ED Provider Note CHIEF COMPLAINT: Right lower quadrant abdominal pain HISTORY OF PRESENTING ILLNESS: This 64-year-old female patient presents to the emergency department with her friend for evaluation of right sided abdominal pain, nausea, vomiting. The patient states that she has felt "ill" for the past couple days, but started vomiting with the right lower quadrant abdominal pain last night. She is now not able to eat or drink anything. No known fevers, but has felt warm. She does not have a thermometer at home. She denies any urinary symptoms. She has had intermittent diarrhea, but this is not unusual for her as she tends to have diarrhea. She denies chest pain or SOB. She rates her discomfort a 6/10. She has not taken anything for her symptoms. She denies any history of abdominal surgeries. She has a history of microscopic colitis, but no other chronic abdominal problems. She is due for her colonoscopy in Nov - last one was 5 years ago. She has not had anything to eat or drink today. REVIEW OF SYSTEMS: See HPI for pertinent positives and pertinent negatives. ALLERGIES: Augmentin, Bactrim, Codeine, Cymbalta MEDICATIONS: See below PAST MEDICAL HISTORY: See below PHYSICAL EXAM: VITALS: Vitals are noted on the nurse's note and reviewed by myself. GENERAL: The patient appears in pain, but non toxic, no acute distress, non- diaphoretic. SKIN: Capillary refill <2 sec. EYES: PERRLA. EOMI. Conjunctivae without injection, sclerae without icterus. NOSE: Patent without discharge. MOUTH: Mucous membranes moist. Uvula midline. Airway patent. NECK: Supple without nuchal rigidity. HEART: Tachycardic with faint murmur noted. LUNGS: Clear to auscultation bilaterally without wheezes, rales or rhonchi. No retractions or accessory muscle use. ABDOMEN: Positive bowel sounds x 4. Normal tympanic percussion. Soft, tender to palpation mainly in the right lower quadrant, but also diffusely over the abdomen. No masses or organomegaly. Fernandez sign negative. No CVA tenderness. Mild guarding, but no rigidity or rebound tenderness. MUSCULOSKELETAL: No gross musculoskeletal defects. NEURO: Patient was alert and oriented. No focal neurological deficits. DIFFERENTIAL DIAGNOSIS: Differential diagnosis includes hepatitis, pancreatitis, cholecystitis, cholelithiasis, appendicitis, kidney stone, pyelonephritis, UTI, gastritis, gastroenteritis, mesenteric adenitis, obstruction, constipation, hernia, abdominal abscess, perforation, diverticulitis, IBD, ischemic colitis, abdominal aortic aneurysm, , ectopic , ovarian cyst, ovarian torsion, acute salpingitis, or others. ED COURSE AND MEDICAL DECISION MAKING: MEDICATIONS GIVEN: 500 mL normal saline solution bolus x 2. Toradol 10 mg IV, Zofran 4 mg IV, Tylenol 1000 mg IV, morphine 4 mg IV. Zosyn 4.5 g IV. MONITOR: Continuous director of cardiac cath lab: Order was placed for continuous director of cardiac cath lab. Patient was placed on the director of cardiac cath lab and continuous pulse ox. Patient was noted to be in sinus tachycardia at an initial rate of 120 bpm per my interpretation. EKG: EKG was interpreted by myself as sinus tachycardia at 121 bpm with no acute ST or T wave changes and no significant change from her previous EKG other than the tachycardia. INTERPRETATION OF LABS: I interpreted the labs with full lab results as below in the lab section of this note. Pertinent lab results discussed in the MDM section below. INTERPRETATION OF IMAGING: Imaging studies were interpreted by myself and read by radiology as per the imaging section of this note. Chest x-ray negative for acute cardiopulmonary etiology. CT scan of the abdomen pelvis with IV contrast showed severe acute appendicitis with findings suspicious for developing perforation. There is significant inflammation change and fluid around the appendix. No obvious organized collection to indicate abscess. Nonspecific free fluid in the cul-de-sac which may be reactive. The bladder wall appears thickened. Cholelithiasis. Cardiomegaly and emphysema. CHRONIC MEDICAL/SOCIAL CONDITIONS AFFECTING CARE: Significant cardiac history including history of CABG and valve replacement, heart failure, cardiomyopathy CONSULTATIONS: General Surgery, on-call hospitalist MDM SUMMARY: I examined the patient. The patient started with right lower quadrant abdominal pain and vomiting last night. She has not been able to eat or drink anything since that time. An IV lock was placed and labs were drawn. There is a severe shortage of IV fluids, but the patient is tachycardic and has been unable to keep any oral fluids down. Therefore, the patient meets criteria for IV fluids. She was given a 500 mL normal saline solution bolus followed by a second 500 mL normal saline solution bolus after the results of the CT scan with continued tachycardia. The patient's lactate was normal as she does not meet criteria for sepsis at this time. White blood cell count elevated at 19.25. Hemoglobin elevated 16.2. Platelet count normal at 255. Coags were normal. Sodium low at 126, chloride 86, anion gap elevated at 14, glucose 170, calcium elevated at 10.7, total bilirubin elevated at 1.8, total protein 9.4, albumin 5.3, and globulin 4.1. CMP otherwise without significant abnormalities. Magnesium low at 1.2. Lactate normal. Lipase normal. The patient was unable to give a urine sample while in the ER. Chest x-ray negative for acute cardiopulmonary etiology. CT scan of the abdomen pelvis with IV contrast showed severe acute appendicitis with findings suspicious for developing perforation. There is significant inflammation change and fluid around the appendix. No obvious organized collection to indicate abscess. Nonspecific free fluid in the cul-de-sac which may be reactive. The bladder wall appears thickened. Cholelithiasis. Cardiomegaly and emphysema. The patient was medicated as above with improvement of her pain. She was given Zosyn 4.5 g IV due to the acute appendicitis with concern for developing perforation. I had a meaningful discussion about this patient with Dr. Sprague who agrees with my assessment and the treatment plan. I spoke with general surgery who came down to evaluate the patient to take her to the OR. Please refer to their dictations for further details. Surgery recommended the patient be admitted to medicine due to her complex medical history. I spoke with the on-call hospitalist who agreed to admit the patient after surgical intervention. Please refer to their dictations for further details. The patient's care was transferred in stable condition. DIAGNOSIS: Acute appendicitis with concern for possible developing perforation Tachycardia Hypomagnesemia Hyponatremia Past Med/Surg History Problem List (Updated 04/08/24 @ 10:30 by Kyaw Mcclendon MD) Acute delirium S/P laparoscopic appendectomy Acute appendicitis (Acute) Sinus tachycardia (Acute) Insomnia Heart failure with mid-range ejection fraction Encounter for pre-operative examination Cardiomyopathy Mildly reduced LV systolic function with some concern for regional wall motion abnormality on 02/2023 ECHO. Pending transesophageal echo findings, consideration for catheterization Elevated liver enzymes (Chronic) Hyponatremia (Chronic) Major depressive disorder (Chronic) Stress incontinence in female (Chronic) Microscopic colitis, unspecified (Chronic) hx Bilateral leg weakness Alcohol abuse (Chronic) Tobacco use (Chronic) Hypomagnesemia (Acute) Folic acid deficiency Anemia Status post left hip replacement (~12/2021) Severe mitral regurgitation by prior echocardiogram (Chronic) Post-menopause Hot flashes Hypothyroidism Weight gain Lumbar pain Screening mammogram, encounter for Leg skin lesion, right Bilateral knee pain Mixed urge and stress incontinence Dyspnea on exertion History of hip fracture (~10/15/21) Left hip fracture, had surgery Cough Mitral regurgitation Tricuspid regurgitation Anxiety Medical History (Updated 04/08/24 @ 10:30 by Kyaw Mcclendon MD) Acute appendicitis CAD (coronary artery disease) Pulmonary hypertension Mild with RVSP at 44mmHg per 02/2023 ECHO History of high blood pressure Heart problem History of seizure D/T LOW SODIUM LEVEL DECEMBER 2021 ...NO RE-OCCURENCE Avascular necrosis of left femoral head hx of and had hip replaced Hx of gastroesophageal reflux (GERD) Depression Hypothyroidism Surgical History (Updated 04/07/24 @ 11:08 by Sapphire Colby RN) History of laparoscopic appendectomy (04/06/24) Laparoscopic Appendectomy(Not Applicable) - Dewey Cano, S/P CABG x 1 S/P mitral valve replacement S/P tricuspid valve repair History of surgery (10/19/22) FINAL DIAGNOSIS In office procedure Dr. Smith Skin, right lower extremity, "right lower extremity skin lesion" (Punch biopsy): - Sclerosing dermatitis (see comment). Hx of cataract extraction Left and right History of total left hip arthroplasty DECEMBER 2021 Hx of breast biopsy lt.>benign History of esophagogastroduodenoscopy (EGD) History of open reduction and internal fixation (ORIF) procedure pinning in left hip done at [place] and then hip needed replaced History of colonoscopy History of tonsillectomy Family History Mother Anxiety Bipolar disorder Heart disease Depression Breast cancer Father Bipolar disorder Lung disease Colorectal cancer Prostate cancer Social History Smoking Status: Current every day smoker Tobacco Type: Cigarettes Age Started Using Tobacco: 17; packs per day: 1; Cigarettes Per Day: <10; Second Hand Exposure: Yes (hx); Do You Dip or Chew Tobacco: No; Hx Alcohol Use: Yes Alcohol type: wine Hx Substance Use: No Preferred Language: American Communication Ability: Effective Visual Impairment: No Limitations Hearing Ability: Normal [employer] Install[employer] Supervisor Required: No Beliefs That Will Affect Care: None marital status: Current Living Situation: Alone current occupational status: retired current occupation: [employer] Feels Safe at Home: Yes Safety Concerns: Feels Safe At This Time Childhood Exposure to Second-Hand Smoke: Yes caffeine: Yes (coffee ) Dental Care, Regularly: No Physical Activity Frequency: Does not Exercise Seatbelt Use: always Assistive Devices: None Allergies Allergies Allergy/AdvReac Type Severity Reaction Status Date / Time amoxicillin [From Augmentin] Allergy Unknown cdif Verified 03/17/24 09:31 clavulanic acid Allergy Unknown cdif Verified 03/17/24 09:31 [From Augmentin] sulfamethoxazole Allergy Unknown Rash Verified 03/17/24 09:31 [From Bactrim] trimethoprim [From Bactrim] Allergy Unknown Rash Verified 03/17/24 09:31 codeine AdvReac Unknown "really Verified 03/17/24 09:31 sick" duloxetine [From Cymbalta] AdvReac Drowsy Verified 04/06/24 14:06 Home Meds Home Medications Medication Instructions Recorded Confirmed ferrous sulfate 324 mg (65 mg 324 mg PO QAM 01/12/22 04/06/24 iron) tablet,delayed release mecobalamin (vitamin B12) 500 mcg 500 mcg PO DAILY 07/27/23 04/06/24 chewable tablet sennosides 8.6 mg tablet (senna) 8.6 mg PO QAM PRN Constipation 07/27/23 04/06/24 vitamin B complex 1 tab PO DAILY 09/14/23 04/06/24 acetaminophen 650 mg 650 mg PO Q6H PRN Pain 11/12/23 04/06/24 tablet,extended release doxycycline hyclate 100 mg capsule 100 mg PO DAILY PRN dental 04/06/24 04/06/24 appointment rosuvastatin 20 mg tablet 10 mg PO UD 04/06/24 04/06/24 Previous Rx's Medication Instructions Recorded nitroglycerin 0.4 mg sublingual 0.4 mg sublingual Q5M PRN chest 05/05/23 tablet (Nitrostat) pain #25 tabs aspirin 81 mg tablet,delayed 81 mg PO DAILY #90 tabs 06/03/23 release (Adult Low Dose Aspirin) omeprazole 20 mg capsule,delayed 20 mg PO QAM #90 caps 08/11/23 release multivitamin (Daily Multi-Vitamin 1 tab PO QAM #90 tabs 09/03/23 tablet) magnesium oxide 400 mg PO QAM #30 tabs 10/05/23 Ventolin HFA 90 mcg/actuation 2 puff inhalation QID #8 grams 11/10/23 aerosol inhaler (albuterol sulfate) trospium 60 mg capsule,extended 60 mg PO DAILY #90 caps 11/10/23 release 24 hr folic acid 1 mg tablet 1 mg PO QAM #90 tabs 01/21/24 buspirone 10 mg tablet 10 mg PO BID #180 tabs 02/17/24 escitalopram oxalate 20 mg tablet 20 mg PO DAILY #90 tabs 02/21/24 (Lexapro) sodium chloride 1,000 mg soluble 1,000 mg PO DAILY #30 tabs 02/29/24 tablet alprazolam 0.5 mg tablet 0.5 mg PO QID #120 tabs 03/17/24 levothyroxine 50 mcg tablet 50 mcg PO DAILY #30 tabs 03/18/24 (Synthroid) Results & Data (ED) Vital Signs Vital Signs - 24 hr 04/06/24 09:17 04/06/24 09:21 04/06/24 09:31 Temperature 36.9 C Temperature Source Oral Pulse Rate 124 H 126 H Pulse Rate [Apical] 127 H Pulse Rhythm Pulse Rhythm [Apical] Regular Pulse Strength [Apical] Normal Respiratory Rate 20 24 Respiratory Effort / Characteristics Non-Labored Spontaneous Non-Labored Respiratory Depth Normal Normal Respiratory Pattern Regular Blood Pressure 123/70 Blood Pressure [Left Arm] 155/84 H Blood Pressure Mean 87 Blood Pressure Mean [Left Arm] 107 Blood Pressure Position [Left Arm] Lying Pulse Oximetry 94 97 Oxygen Delivery Method Room Air Room Air Sepsis Recent Fever Within 48 Hours Yes Sepsis New/Unexplained Change in Mental Status N/A Sepsis Action Taken by Nursing No Action Required 04/06/24 09:33 04/06/24 11:27 Temperature Temperature Source Pulse Rate 126 H Pulse Rate [Apical] 124 H Pulse Rhythm Regular Pulse Rhythm [Apical] Regular Pulse Strength [Apical] Normal Respiratory Rate 24 18 Respiratory Effort / Characteristics Non-Labored Respiratory Depth Normal Respiratory Pattern Regular Blood Pressure Blood Pressure [Left Arm] 124/79 Blood Pressure Mean Blood Pressure Mean [Left Arm] 94 Blood Pressure Position [Left Arm] Lying Pulse Oximetry 97 96 Oxygen Delivery Method Room Air Room Air Sepsis Recent Fever Within 48 Hours Sepsis New/Unexplained Change in Mental Status Sepsis Action Taken by Nursing Laboratory Data 04/08/24 05:35 04/08/24 05:35 Lab Results 04/06/24 Range/Units 09:24 WBC 19.24 H (4.8-10.8) K/ul RBC 5.00 (4.20-5.40) M/uL Hgb 16.2 H (12.0-16.0) g/dl Hct 46.4 (37.0-47.0) % MCV 92.8 (80.0-100.0) fL MCH 32.4 (25.0-34.0) pg MCHC 34.9 (32.0-36.0) g/dL RDW Std Deviation 44.0 (36.4-46.3) fL RDW Coeff of Roland 13.0 (11.5-14.5) % Plt Count 255 (130-400) K/uL MPV 9.5 (9.4-12.4) fL Immature Gran % (Auto) 1.1 % Neut % (Auto) 89.3 % Lymph % (Auto) 4.6 % Sharkey % (Auto) 3.9 % Eos % (Auto) 0.8 % Baso % (Auto) 0.3 % Neut # (Auto) 17.19 H (1.40-6.50) K/uL Lymph # (Auto) 0.89 L (1.20-3.40) K/uL Sharkey # (Auto) 0.75 H (0.11-0.59) K/uL Eos # (Auto) 0.15 (0.00-0.50) K/uL Baso # (Auto) 0.05 (0.00-0.20) K/uL Immature Gran # (Auto) 0.21 H (0.01-0.20) K/uL PT 10.5 (9.0-12.0) Seconds INR 1.0 (0.9-1.1) APTT 27 (21-31) Seconds PTT Ratio 1.0 Sodium 126 L (136-145) mmol/L Potassium 4.0 (3.5-5.1) mmol/L Chloride 86 L (98-107) mmol/L Carbon Dioxide 26 (21-32) mmol/L Anion Gap 14 H (3-11) BUN 8 (6-23) mg/dl Creatinine 0.93 (0.6-1.2) mg/dl Est Cr Clr Drug Dosing 56.8 ml/min eGFR 68.21 BUN/Creatinine Ratio 8.6 L (10-20) Glucose 170 H (70-99(Fasting)) mg/dl Osmolality 269 L (280-300) mOsm/kg Calcium 10.7 H (8.6-10.3) mg/dl Magnesium 1.2 L (1.7-2.4) mg/dl Total Bilirubin 1.8 H (0.2-1.0) mg/dl AST 23 (13-39) U/L ALT 13 (7-52) U/L Alkaline Phosphatase 87 (34-104) U/L Troponin I High Sens 8.0 (0-14) pg/ml Total Protein 9.4 H (6.0-8.3) gm/dl Albumin 5.3 H (3.4-5.0) gm/dl Globulin 4.1 H (2.5-4.0) gm/dl Albumin/Globulin Ratio 1.3 (0.9-2) Lipase 14 (11-82) U/L Administered Medications Alprazolam (Alprazolam 0.5 Mg Tablet) 0.5 mg PO QID HAO Stop: 05/06/24 16:59 Last Admin: 04/08/24 17:12 Dose: 0.5 mg Documented By: Admin: 04/08/24 13:39 Dose: 0.5 mg Documented By: Admin: 04/08/24 07:55 Dose: 0.5 mg Documented By: Admin: 04/07/24 20:11 Dose: Not Given Documented By: Admin: 04/07/24 18:46 Dose: 0.5 mg Documented By: Admin: 04/07/24 12:01 Dose: 0.5 mg Documented By: Admin: 04/07/24 08:10 Dose: 0.5 mg Documented By: Admin: 04/06/24 20:14 Dose: 0.5 mg Documented By: JOSE A Admin: 04/06/24 18:03 Dose: Not Given Documented By: EDITH Aspirin (Aspirin 81 Mg Ectab) 81 mg PO DAILY [facility] Stop: 05/07/24 08:59 Last Admin: 04/08/24 07:50 Dose: 81 mg Documented By: Admin: 04/07/24 08:03 Dose: 81 mg Documented By: KAT Buspirone HCl (Buspirone 5 Mg Tab) 10 mg PO BID [facility] Stop: 05/06/24 20:59 Last Admin: 04/08/24 07:50 Dose: 10 mg Documented By: Admin: 04/07/24 20:19 Dose: 10 mg Documented By: Admin: 04/07/24 08:03 Dose: 10 mg Documented By: Admin: 04/06/24 20:14 Dose: 10 mg Documented By: JOSE A Chlordiazepoxide HCl (Chlordiazepoxide Hcl 10 Mg Cap) 10 mg PO TID [facility] Stop: 05/08/24 13:59 Last Admin: 04/08/24 13:39 Dose: 10 mg Documented By: KAT Escitalopram Oxalate (Escitalopram Oxalate 20 Mg Tab) 20 mg PO DAILY [facility] Stop: 05/07/24 08:59 Last Admin: 04/08/24 07:50 Dose: 20 mg Documented By: Admin: 04/07/24 08:03 Dose: 20 mg Documented By: KAT Ferrous Sulfate (Ferrous Sulfate 325 Mg Tab) [facility] Stop: 05/07/24 08:59 Last Admin: 04/08/24 07:50 Dose: 325 mg Documented By: Admin: 04/07/24 08:04 Dose: 325 mg Documented By: KAT Folic Acid (Folic Acid 1 Mg Tab) 1 mg PO QAM [facility] Stop: 05/07/24 08:59 Last Admin: 04/08/24 07:50 Dose: 1 mg Documented By: Admin: 04/07/24 08:04 Dose: 1 mg Documented By: KAT Piperacillin Sod/Tazobactam Sod (Zosyn) 4.5 gm in 100 mls @ 25 mls/hr IV Q8H [facility]; Protocol Stop: 04/10/24 15:59 Last Admin: 04/08/24 17:12 Dose: 25 mls/hr Documented By: Infusion: 04/08/24 16:16 Dose: Infused Documented By: Admin: 04/08/24 10:20 Dose: 25 mls/hr Documented By: Infusion: 04/08/24 07:45 Dose: Infused Documented By: Admin: 04/08/24 03:08 Dose: 25 mls/hr Documented By: Infusion: 04/07/24 23:23 Dose: Infused Documented By: Admin: 04/07/24 18:46 Dose: 25 mls/hr Documented By: Infusion: 04/07/24 13:28 Dose: Infused Documented By: Admin: 04/07/24 09:36 Dose: 25 mls/hr Documented By: Infusion: 04/07/24 05:02 Dose: Infused Documented By: JOSE A Admin: 04/07/24 00:56 Dose: 25 mls/hr Documented By: JOSE A Infusion: 04/06/24 22:14 Dose: Infused Documented By: JOSE A Admin: 04/06/24 18:13 Dose: 25 mls/hr Documented By: EDITH Acetaminophen (Ofirmev) 1,000 mg in 100 mls @ 400 mls/hr IV Q8H [facility] Stop: 04/10/24 11:59 Last Infusion: 04/08/24 16:16 Dose: Infused Documented By: Infusion: 04/08/24 15:03 Dose: 400 mls/hr Documented By: Infusion: 04/08/24 13:40 Dose: 0 mls/hr Documented By: Admin: 04/08/24 13:40 Dose: 400 mls/hr Documented By: Infusion: 04/08/24 06:26 Dose: Infused Documented By: Admin: 04/08/24 05:55 Dose: 400 mls/hr Documented By: Infusion: 04/07/24 20:39 Dose: Infused Documented By: Admin: 04/07/24 20:20 Dose: 400 mls/hr Documented By: Infusion: 04/07/24 12:24 Dose: Infused Documented By: Admin: 04/07/24 12:00 Dose: 400 mls/hr Documented By: KAT Levothyroxine Sodium (Levothyroxine Sodium 50 Mcg Tablet) 50 mcg PO DAILYBB [facility] Stop: 05/07/24 06:29 Last Admin: 04/08/24 06:00 Dose: 50 mcg Documented By: Admin: 04/07/24 05:37 Dose: 50 mcg Documented By: JOSE A Magnesium Oxide (Magnesium Oxide 400 Mg Tab) 400 mg [facility] Stop: 05/07/24 08:59 Last Admin: 04/08/24 07:49 Dose: 400 mg Documented By: Admin: 04/07/24 08:04 Dose: 400 mg Documented By: KAT Morphine Sulfate (Morphine Sulfate 4 Mg/Ml 1 Ml Carp\\Vial) 4 mg IV Q3H PRN PRN Reason: Severe Pain (7,8,9,10) on NRS Stop: 04/20/24 13:59 Last Admin: 04/08/24 13:47 Dose: 4 mg Documented By: Admin: 04/08/24 07:59 Dose: 4 mg Documented By: Admin: 04/07/24 20:17 Dose: 4 mg Documented By: Admin: 04/07/24 07:55 Dose: 4 mg Documented By: Admin: 04/06/24 14:11 Dose: 4 mg Documented By: EDITH Oxycodone HCl (Oxycodone Hcl Ir 5 Mg Tab (Immediate Release)) 5 mg PO Q4H PRN PRN Reason: Moderte Pain scale 4,5,6 Stop: 04/20/24 17:39 Last Admin: 04/07/24 00:56 Dose: 5 mg Documented By: JOSE A Oxycodone HCl (Oxycodone Hcl Ir 5 Mg Tab (Immediate Release)) 10 mg PO Q4H PRN PRN Reason: Severe Pain (Scale 7, 8, 9,10) Stop: 04/20/24 17:39 Last Admin: 04/08/24 13:47 Dose: 10 mg Documented By: Admin: 04/08/24 00:06 Dose: 10 mg Documented By: Admin: 04/07/24 12:01 Dose: 10 mg Documented By: KAT Pantoprazole Sodium (Pantoprazole 40 Mg Tab) 40 [facility] Stop: 05/07/24 08:59 Last Admin: 04/08/24 07:49 Dose: 40 mg Documented By: Admin: 04/07/24 08:04 Dose: 40 mg Documented By: KAT Rosuvastatin Calcium (Rosuvastatin Calcium 20 Mg Tab) 20 mg PO [facility] Stop: 05/06/24 20:59 Last Admin: 04/07/24 20:20 Dose: 20 mg Documented By: Admin: 04/06/24 20:14 Dose: 20 mg Documented By: JOSE A Sennosides (Senna 8.6 Mg Tab) 8.6 mg PO QAM PRN PRN Reason: Constipation Stop: 05/06/24 13:59 Last Admin: 04/08/24 07:55 Dose: 8.6 mg Documented By: KAT Sodium Chloride (Sodium Chloride 1 Gm Tablet) 1 gm PO DAILY [facility] Stop: 05/07/24 08:59 Last Admin: 04/08/24 07:49 Dose: 1 gm Documented By: Admin: 04/07/24 08:04 Dose: 1 gm Documented By: KAT Discontinued Medications Albuterol (Albuterol Hfa 8 Gm Inhaler) 2 puffs INH QIDR [facility] Stop: 05/06/24 14:59 Last Admin: 04/07/24 07:49 Dose: Not Given Documented By: Admin: 04/06/24 19:34 Dose: Not Given Documented By: Admin: 04/06/24 15:27 Dose: Not Given Documented By: ALEJANDRA Bupivacaine HCl/Epinephrine Bitart (Bupivacaine/Epinephrine 0.5% Mpf 1:200,000 30 Ml Vial) Confirm Administered Dose 30 ml .ROUTE .STK-MED ONE Stop: 04/06/24 15:12 Last Admin: 04/06/24 16:25 Dose: 29 ml Documented By: SANDRO Chlordiazepoxide HCl (Chlordiazepoxide Hcl 25 Mg Cap) 25 mg PO NOW ONE Stop: 04/08/24 09:16 Last Admin: 04/08/24 10:21 Dose: 25 mg Documented By: KAT Sodium Chloride (Nss) 500 mls @ 999 mls/hr IV .Q31M STA Stop: 04/06/24 10:02 Last Infusion: 04/06/24 10:22 Dose: Infused Documented By: Admin: 04/06/24 09:43 Dose: 999 mls/hr Documented By: CHUNG Acetaminophen (Ofirmev) 1,000 mg in 100 mls @ 400 mls/hr IV NOW STA Stop: 04/06/24 11:22 Last Infusion: 04/06/24 11:47 Dose: Infused Documented By: Infusion: 04/06/24 11:46 Dose: Infused Documented By: Admin: 04/06/24 11:23 Dose: 400 mls/hr Documented By: MARY Piperacillin Sod/Tazobactam Sod (Zosyn) 4.5 gm in 100 mls @ 200 mls/hr IV NOW ONE; Protocol Stop: 04/06/24 11:51 Last Infusion: 04/06/24 12:22 Dose: Infused Documented By: Admin: 04/06/24 11:46 Dose: 200 mls/hr Documented By: MARY Sodium Chloride (Nss) 500 mls @ 999 mls/hr IV .Q31M ONE Stop: 04/06/24 11:52 Last Infusion: 04/06/24 12:22 Dose: Infused Documented By: Admin: 04/06/24 11:46 Dose: 999 mls/hr Documented By: MARY Magnesium Sulfate/Dextrose (Magnesium Sulfate / D5w) 1 gm in 100 mls @ 50 mls/hr IV Q2H [facility] Stop: 04/06/24 19:44 Last Infusion: 04/06/24 20:11 Dose: Infused Documented By: JOSE A Admin: 04/06/24 18:10 Dose: 50 mls/hr Documented By: Infusion: 04/06/24 16:02 Dose: Infused Documented By: Admin: 04/06/24 14:02 Dose: 50 mls/hr Documented By: Infusion: 04/06/24 14:02 Dose: Infused Documented By: Admin: 04/06/24 12:48 Dose: 50 mls/hr Documented By: Infusion: 04/06/24 12:48 Dose: Infused Documented By: Admin: 04/06/24 12:08 Dose: 50 mls/hr Documented By: MARY Lactated Ringer's (Lr) 1,000 mls @ 80 mls/hr IV .[id number] [facility] Stop: 05/06/24 17:39 Last Infusion: 04/07/24 19:47 Dose: Infused Documented By: Admin: 04/07/24 06:26 Dose: 80 mls/hr Documented By: JOSE A Infusion: 04/07/24 06:26 Dose: Infused Documented By: JOSE A Admin: 04/06/24 18:20 Dose: 80 mls/hr Documented By: EDITH Lactated Ringer's (Lr) 500 mls @ 999 mls/hr IV .Q31M ONE Stop: 04/08/24 17:50 Last Infusion: 04/08/24 18:42 Dose: Infused Documented By: Admin: 04/08/24 17:33 Dose: 999 mls/hr Documented By: KAT Ioversol (Optiray 320 100ml) 95 ml IV ONCE ONE Stop: 04/06/24 10:56 Last Admin: 04/06/24 10:52 Dose: 95 ml Documented By: RAMILA Ketorolac Tromethamine (Ketorolac Tromethamine 15 Mg/Ml Vial) 10 mg IV NOW STA Stop: 04/06/24 09:33 Last Admin: 04/06/24 09:43 Dose: 10 mg Documented By: CHUNG Lorazepam (Lorazepam 2 Mg/1 Ml Vial) 1 mg IV ONE PRN; Protocol PRN Reason: EtoH Withdrawal AWSS 6-10 Last Admin: 04/08/24 17:25 Dose: 1 mg Documented By: KAT Morphine Sulfate (Morphine Sulfate 4 Mg/Ml 1 Ml Carp\\Vial) 4 mg IV NOW STA Stop: 04/06/24 11:24 Last Admin: 04/06/24 11:46 Dose: 4 mg Documented By: MARY Ondansetron HCl (Ondansetron Inj 2 Mg/Ml 2 Ml Vial) 4 mg IV NOW STA Stop: 04/06/24 09:33 Last Admin: 04/06/24 09:43 Dose: 4 mg Documented By: CHUNG Imaging Data Radiologist's Impression: Abdomen/Pelvis CT 04/06/24 09:33 CT SCAN OF THE ABDOMEN AND PELVIS WITH IV CONTRAST CLINICAL HISTORY: Right lower quadrant abdominal pain. COMPARISON STUDY: No priors. TECHNIQUE: Following the IV administration of 95 cc of Optiray 320, CT scan of the abdomen and pelvis is performed from the lung bases to the proximal femora. Images are reviewed in the axial, sagittal, and coronal planes. IV contrast was administered without complication. A dose lowering technique was utilized adhering to the principles of ALARA. CT DOSE: 499.56 mGy.cm FINDINGS: Lung bases: The patient is status post midline sternotomy and aortic valve surgeries. The heart is enlarged and without pericardial effusion. Emphysematous change is noted. There is mild dependent scarring/atelectasis. No airspace consolidation or pleural effusion is identified. There is a small hiatal hernia. Liver: The contrast-enhanced liver is normal in size, contour, and attenuation. There is no intrahepatic biliary ductal dilatation. The hepatic veins and portal veins are patent. Gallbladder: There are gallstones with no CT evidence of acute cholecystitis. Spleen: Normal in size and attenuation. Pancreas: Unremarkable. Adrenal glands: Unremarkable. Kidneys: The contrast enhanced kidneys are normal in size and without hydronephrosis. The kidneys enhance symmetrically. Abdominal vasculature: The abdominal aorta is normal in course and caliber noting mild to moderate atherosclerotic calcification. Bowel: There are scattered colonic diverticula without CT evidence of acute diverticulitis. No bowel obstruction is seen. The appendix is severely dilated and fluid-filled, measuring up to 1.5 cm in diameter as seen on image #184. The appendiceal wall is thickened and hyperemic with significant surrounding inflammation and fluid. Large calcified appendicoliths are seen in the base of the appendix on image #197. There is apparent discontinuity of the appendiceal wall on axial image #189. Perforation is not excluded. No organized/drainable fluid collection is identified to indicate abscess. Wall thickening and edema of the adjacent cecum is likely related to appendicitis. Peritoneum: There is no intraperitoneal free air or abdominal ascites. There is a fat-containing umbilical hernia. Lymphadenopathy: None. Pelvic viscera: Evaluation of the pelvis is degraded by streak artifact from a left hip arthroplasty. The bladder is distended and appears mildly thick walled. The uterus and adnexa are normal as visualized. There is free fluid in the cul-de-sac. Surgical clips are seen in the right groin. Skeletal structures: The skeletal structures are osteopenic. There is moderate lumbosacral spondylosis as well as mild scoliosis. No lytic or blastic lesions are seen. A left hip arthroplasty is in place. Mild sclerotic changes noted in the sacroiliac joints. IMPRESSION: 1. Severe acute appendicitis with findings suspicious for developing perforation. 2. There is significant inflammatory change and fluid around the appendix. No organized collection is seen to indicate abscess. 3. Nonspecific free fluid in the cul-de-sac may be reactive. 4. The bladder wall appears thickened. Correlate with clinical findings and urinalysis. 5. Cholelithiasis. 6. Cardiomegaly and emphysema. 7. Additional findings as above. ACT 112: Negative or not required by law. Electronically signed by: Nicholas Mar M.D. 04/06/2024 11:07 AM Chest X-Ray 04/06/24 09:33 XR chest 1V portable CLINICAL HISTORY: Abdominal pain. COMPARISON STUDY: Chest radiograph and chest CT December 04, 2022. FINDINGS: Status post median sternotomy and placement of a prosthetic cardiac valve. Lung volumes are normal. Lungs are clear. There is no pneumothorax or pleural effusion. Cardiac size is normal. Mediastinal contours are normal. There is no evidence for pulmonary edema. There is no lucency under the hemidiaphragms to suggest pneumoperitoneum on upright chest radiograph. IMPRESSION: No acute cardiopulmonary findings. ACT 112: Negative or not required by law. Electronically signed by: Ulises Mcqueen M.D. 04/06/2024 10:01 AM Discharge Plan Visit Data Chief Complaint: Abdominal Pain Stated Complaint: SEVERE R SIDE ABD PAIN, VOMITING, DRY HEAVES, COLD ED Provider: Corona Sprague ED Midlevel Provider: Ashley Montana Discharge Problem: Acute appendicitis, Hypomagnesemia, Hyponatremia, Sinus tachycardia Patient Disposition: Admitted As Inpatient Condition: Fair Discharge Instructions Interventions: ED Discharge Assessment Last Done: 04/06/24 14:02 Addendum April 08, 2024 19:42 I was consulted by the Advanced Practice Provider and was substantively involved in the patient's visit.This includes aspects of the HPI, MDM, diagnostic interpretations, and disposition/plan. I discussed the case with the JAYLEEN and agree with the findings and plan as documented in JAYLEEN Rubén's note. Discharge Problem: Acute appendicitis Qualifiers: Acute appendicitis type: other Qualified Code(s): K35.890 - Other acute appendicitis without perforation or gangrene
[2024-04-06] MEDS: KETOROLAC TROMETHAMINE 15 MG/ML VIAL IV STA (09:43)
[2024-04-06] MEDS: ONDANSETRON INJ 2 MG/ML 2 ML VIAL IV STA (09:43)
[2024-04-06] MEDS: SODIUM CHLORIDE 0.9% 500 ML IV STA (09:43)
--- NOTE | 2024-04-06 10:02 | XRay Report ---
XR chest 1V portable CLINICAL HISTORY: Abdominal pain. COMPARISON STUDY: Chest radiograph and chest CT December 04, 2022. FINDINGS: Status post median sternotomy and placement of a prosthetic cardiac valve. Lung volumes are normal. Lungs are clear. There is no pneumothorax or pleural effusion. Cardiac size is normal. Media stinal contours are normal. There is no evidence for pulmonary edema. There is no lucency under the h emidiaphragms to suggest pneumoperitoneum on upright chest radiograph. IMPRESSION: No acute cardiopulmonary findings. ACT 112: Negative or not required by law. Electronically signed by: Ulises Mcqueen M.D. 04/06/2024 10:01 AM
[2024-04-06 10:09] LABS: Basophils # (auto) 0.05 K/uL (0.00-0.20); Basophils % (auto) 0.3 %; Eosinophils # (auto) 0.15 K/uL (0.00-0.50); Eosinophils % (auto) 0.8 %; Hematocrit (blood only) 46.4 % (37.0-47.0); Hemoglobin 16.2 g/dl (12.0-16.0); Immature Granulocytes # (auto) 0.21 K/uL (0.01-0.20); Immature Granulocytes % (auto) 1.1 %; Lymphocytes # (auto) 0.89 K/uL (1.20-3.40); Lymphocytes % (auto) 4.6 %; Mean Corpuscular Hemoglobin 32.4 pg (25.0-34.0); Mean Corpuscular Hgb Conc 34.9 g/dL (32.0-36.0); Mean Corpuscular Volume 92.8 fL (80.0-100.0); Mean Platelet Volume 9.5 fL (9.4-12.4); Monocytes # (auto) 0.75 K/uL (0.11-0.59); Monocytes % (auto) 3.9 %; Neutrophils # (auto) 17.19 K/uL (1.40-6.50); Neutrophils % (auto) 89.3 %; Platelet Count 255 K/uL (130-400); White Blood Count 19.24 K/ul (4.8-10.8)
[2024-04-06 10:25] LABS: Albumin Globulin Ratio 1.3 (0.9-2); Albumin Level 5.3 gm/dl (3.4-5.0); BUN Creatinine Ratio 8.6 (10-20); Bilirubin,Total 1.8 mg/dl (0.2-1.0); Calcium 10.7 mg/dl (8.6-10.3); Creatinine Clr Calc Pharmacy 56.8 ml/min; Globulin 4.1 gm/dl (2.5-4.0); Magnesium 1.2 mg/dl (1.7-2.4); Total Protein 9.4 gm/dl (6.0-8.3)
[2024-04-06 10:44] LABS: Partial Thromboplastin Time 27 Seconds (21-31); Prothrombin Time 10.5 Seconds (9.0-12.0)
[2024-04-06] MEDS: OPTIRAY 320 100ml IV ONE (10:52)
--- NOTE | 2024-04-06 11:09 | CT Scan Report ---
CT SCAN OF THE ABDOMEN AND PELVIS WITH IV CONTRAST CLINICAL HISTORY: Right lower quadrant abdominal pain. COMPARISON STUDY: No priors. TECHNIQUE: Following the IV administration of 95 cc of Optiray 320, CT scan of the abdomen and pelvi s is performed from the lung bases to the proximal femora. Images are reviewed in the axial, sagittal , and coronal planes. IV contrast was administered without complication. A dose lowering technique wa s utilized adhering to the principles of ALARA. CT DOSE: 499.56 mGy.cm FINDINGS: Lung bases: The patient is status post midline sternotomy and aortic valve surgeries. The heart is en larged and without pericardial effusion. Emphysematous change is noted. There is mild dependent scarr ing/atelectasis. No airspace consolidation or pleural effusion is identified. There is a small hiatal hernia. Liver: The contrast-enhanced liver is normal in size, contour, and attenuation. There is no intrahepa tic biliary ductal dilatation. The hepatic veins and portal veins are patent. Gallbladder: There are gallstones with no CT evidence of acute cholecystitis. Spleen: Normal in size and attenuation. Pancreas: Unremarkable. Adrenal glands: Unremarkable. Kidneys: The contrast enhanced kidneys are normal in size and without hydronephrosis. The kidneys enh ance symmetrically. Abdominal vasculature: The abdominal aorta is normal in course and caliber noting mild to moderate at herosclerotic calcification. Bowel: There are scattered colonic diverticula without CT evidence of acute diverticulitis. No bowel obstruction is seen. The appendix is severely dilated and fluid-filled, measuring up to 1.5 cm in di ameter as seen on image #184. The appendiceal wall is thickened and hyperemic with significant surrou nding inflammation and fluid. Large calcified appendicoliths are seen in the base of the appendix on image #197. There is apparent discontinuity of the appendiceal wall on axial image #189. Perforation is not excluded. No organized/drainable fluid collection is identified to indicate abscess. Wall thic kening and edema of the adjacent cecum is likely related to appendicitis. Peritoneum: There is no intraperitoneal free air or abdominal ascites. There is a fat-containing umbi lical hernia. Lymphadenopathy: None. Pelvic viscera: Evaluation of the pelvis is degraded by streak artifact from a left hip arthroplasty. The bladder is distended and appears mildly thick walled. The uterus and adnexa are normal as visual ized. There is free fluid in the cul-de-sac. Surgical clips are seen in the right groin. Skeletal structures: The skeletal structures are osteopenic. There is moderate lumbosacral spondylosi s as well as mild scoliosis. No lytic or blastic lesions are seen. A left hip arthroplasty is in plac e. Mild sclerotic changes noted in the sacroiliac joints. IMPRESSION: 1. Severe acute appendicitis with findings suspicious for developing perforation. 2. There is significant inflammatory change and fluid around the appendix. No organized collection is seen to indicate abscess. 3. Nonspecific free fluid in the cul-de-sac may be reactive. 4. The bladder wall appears thickened. Correlate with clinical findings and urinalysis. 5. Cholelithiasis. 6. Cardiomegaly and emphysema. 7. Additional findings as above. ACT 112: Negative or not required by law. Electronically signed by: Nicholas Mar M.D. 04/06/2024 11:07 AM
[2024-04-06] MEDS: ACETAMINOPHEN 1,000 MG/100 ML VIAL IV STA (11:23)
--- NOTE | 2024-04-06 11:35 | Electrocardiogram Report ---
Test Reason : Blood Pressure : */* mmHG Vent. Rate : 121 BPM Atrial Rate : 121 BPM P-R Int : 162 ms QRS Dur : 68 ms QT Int : 316 ms P-R-T Axes : 45 55 61 degrees QTcB Int : 448 ms Sinus tachycardia Low voltage QRS Poor R wave progression, consider anterior NV vs. lead placement vs. LVH Abnormal ECG When compared with ECG of 04-Dec-2022 20:16, No significant change was found Confirmed by Shukri Barber ([id number]) on 04/06/2024 11:35:07 AM Referred By: REFERRED SELF Confirmed By: Shukri Barber
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
[2024-04-06] MEDS: MoRPHine SULFATE 4 MG/ML 1 ML CARP\\VIAL IV STA (11:46)
[2024-04-06] MEDS: PIPERACILLIN/TAZOBACTAM 4.5 GM/100 ML BAG IV ONE (11:46)
[2024-04-06] MEDS: SODIUM CHLORIDE 0.9% 500 ML IV ONE (11:46)
--- NOTE | 2024-04-06 11:51 | Surgery Consultation ---
Date of Consultation April 06, 2024 Assessment & Plan (1) Acute appendicitis: On exam patient appears uncomfortable, VSS with tachycardia afebrile, TTP RLQ, WBC elevated at 19. Discussed radiology results with the patient and recommending acute surgical intervention in the form of a Laparoscopic appendectomy with on-call surgeon Dr. Cano. Procedure explained and questions answered. Patient in agreement. Recommending admission to medicine given the patients cardiac hx Keep NPO IV Fluids for hydration IV antiemetic PRN IV antibiotics was given zosyn in ER IV analgesic PRN Will be scheduled with Laparoscopic appendectomy today , timing pending OR availability. As above. Her history clinical exam and imaging is consistent with acute appendicitis. We discussed her options as well as the risks which include bleeding, infection, injury to another organ, postoperative abscess, DVT, PE, ID, CVA etc. I answered all of her questions. We will proceed today with a laparoscopic appendectomy. She will be admitted to the medical service for management of her medical issues. History of Present Illness Reason for Consultation: acute appendicitis Requesting Physician: Ashley Montana PA-C History of Present Illness Patient is a 64 yo f with PMH of CAD, cardiomyopathy, HF w/ mid range EF, S/P tricuspid valve repair and S/P mitral valve replacement, CABG x1, Pulmonary HTN, MDD, alcohol abuse, tobacco abuse, anemia that presented to [facility] ER with c/o abdominal pain with n/v, Fever, chills that started last night and continue throughout this morning. She states pain is located RLQ, she has been NPO since last night. Is currently everyday smoker last cigarette was this AM. Last bowel movement was a few days ago. The patient underwent an abd/pelvis CT scan and it is concerning for 1. Severe acute appendicitis with findings suspicious for developing perforation. Denies prior abd surgurical hx , takes aspirin. Allergies Allergy/AdvReac Type Severity Reaction Status Date / Time amoxicillin [From Augmentin] Allergy Unknown cdif Verified 03/17/24 09:31 clavulanic acid Allergy Unknown cdif Verified 03/17/24 09:31 [From Augmentin] sulfamethoxazole Allergy Unknown Rash Verified 03/17/24 09:31 [From Bactrim] trimethoprim [From Bactrim] Allergy Unknown Rash Verified 03/17/24 09:31 codeine AdvReac Unknown "really Verified 03/17/24 09:31 sick" miranda AdvReac Severe Drowsy Uncoded 03/17/24 09:31 Home Medications Medication Instructions Recorded Confirmed Type ferrous sulfate 324 mg (65 mg 324 mg PO QAM 01/12/22 04/06/24 History iron) tablet,delayed release nitroglycerin 0.4 mg sublingual 0.4 mg sublingual Q5M PRN chest 05/05/23 04/06/24 Rx tablet (Nitrostat) pain #25 tabs aspirin 81 mg tablet,delayed 81 mg PO DAILY #90 tabs 06/03/23 04/06/24 Rx release (Adult Low Dose Aspirin) mecobalamin (vitamin B12) 500 mcg 500 mcg PO DAILY 07/27/23 04/06/24 History chewable tablet sennosides 8.6 mg tablet (senna) 8.6 mg PO QAM PRN Constipation 07/27/23 04/06/24 History omeprazole 20 mg capsule,delayed 20 mg PO QAM #90 caps 08/11/23 04/06/24 Rx release multivitamin (Daily Multi-Vitamin 1 tab PO QAM #90 tabs 09/03/23 04/06/24 Rx tablet) vitamin B complex 1 tab PO DAILY 09/14/23 04/06/24 History magnesium oxide 400 mg PO QAM #30 tabs 10/05/23 04/06/24 Rx Ventolin HFA 90 mcg/actuation 2 puff inhalation QID #8 grams 11/10/23 04/06/24 Rx aerosol inhaler (albuterol sulfate) trospium 60 mg capsule,extended 60 mg PO DAILY #90 caps 11/10/23 04/06/24 Rx release 24 hr acetaminophen 650 mg 650 mg PO Q6H PRN Pain 11/12/23 04/06/24 History tablet,extended release folic acid 1 mg tablet 1 mg PO QAM #90 tabs 01/21/24 04/06/24 Rx buspirone 10 mg tablet 10 mg PO BID #180 tabs 02/17/24 04/06/24 Rx escitalopram oxalate 20 mg tablet 20 mg PO DAILY #90 tabs 02/21/24 04/06/24 Rx (Lexapro) sodium chloride 1,000 mg soluble 1,000 mg PO DAILY #30 tabs 02/29/24 04/06/24 Rx tablet alprazolam 0.5 mg tablet 0.5 mg PO QID #120 tabs 03/17/24 04/06/24 Rx levothyroxine 50 mcg tablet 50 mcg PO DAILY #30 tabs 03/18/24 04/06/24 Rx (Synthroid) doxycycline hyclate 100 mg capsule 100 mg PO DAILY PRN dental 04/06/24 04/06/24 History appointment rosuvastatin 20 mg tablet 10 mg PO UD 04/06/24 04/06/24 History Patient History Medical History History of high blood pressure Heart problem - MV regurgitation at least moderate on 02/2023 ECHO- reason for upcoming procedure - TV moderate to severe regurgitation per 02/2023 ECHO History of seizure D/T LOW SODIUM LEVEL DECEMBER 2021 ...NO RE-OCCURENCE Avascular necrosis of left femoral head hx of and had hip replaced Hx of gastroesophageal reflux (GERD) Depression Hypothyroidism Surgical History History of surgery (10/19/22) FINAL DIAGNOSIS In office procedure Dr. Smith Skin, right lower extremity, "right lower extremity skin lesion" (Punch biopsy): - Sclerosing dermatitis (see comment). Hx of cataract extraction Left and right History of total left hip arthroplasty DECEMBER 2021 Hx of breast biopsy lt.>benign History of esophagogastroduodenoscopy (EGD) History of open reduction and internal fixation (ORIF) procedure pinning in left hip done at [facility] and then hip needed replaced History of colonoscopy History of tonsillectomy Family History Mother Anxiety Bipolar disorder Heart disease Depression Breast cancer Father Bipolar disorder Lung disease Colorectal cancer Prostate cancer Social History Smoking Status: Current every day smoker Tobacco Type: Cigarettes Age Started Using Tobacco: 17; packs per day: 1; Cigarettes Per Day: <10; Second Hand Exposure: Yes (hx); Do You Dip or Chew Tobacco: No; Hx Alcohol Use: Yes Alcohol type: wine Hx Substance Use: No Preferred Language: Syriac Communication Ability: Effective Visual Impairment: No Limitations Hearing Ability: Normal Development Geologist Required: No Beliefs That Will Affect Care: None marital status: Current Living Situation: Alone current occupational status: retired current occupation: Retired- [employer] Feels Safe at Home: Yes Childhood Exposure to Second-Hand Smoke: Yes caffeine: Yes (coffee ) Dental Care, Regularly: No Physical Activity Frequency: Does not Exercise Seatbelt Use: always Assistive Devices: None Review of Systems Constitutional: + fever and + chills Respiratory: no dyspnea Cardiovascular: no chest pain Gastrointestinal: + abdominal pain, + nausea and + vomitin g Genitourinary: no dysuria Musculoskeletal: no muscle weakness Integumentary: no rash Psychiatric: no confusion Physical Exam Constitutional: cooperative; + uncomfortable Respiratory: normal respiratory effort and able to speak in complete sentences; no respiratory distress Cardiovascular: Rate/Rhythm: + tachycardic (124) Gastrointestinal (Abdomen): Inspection/Auscultation: abdomen not distended Percussion/Palpation: + abdomen tender and abdomen soft Skin: no rashes, warm and dry Results & Data Vital Signs (Past 12 Hours) Vital Signs Temp Pulse Pulse Resp BP BP Pulse Ox 04/06/24 11:27 124 H 18 124/79 96 04/06/24 09:33 126 H 24 97 04/06/24 09:21 98.4 F 127 H 24 155/84 H 97 04/06/24 09:17 124 H 20 123/70 94 O2 Del Method 04/06/24 11:27 Room Air 04/06/24 09:33 Room Air 04/06/24 09:21 Room Air 04/06/24 09:17 Room Air Diagnostic Findings [place], [place] [phone] CT Scan Report Patient: MARCIO MORAES Admit Date: 04/06/24 MR#: [id number] Address1: [address] [place] [address] Acct ID:[id number] Address2: Date: 1960 [facility] Zip: [place] [address] Age: 64 Location: ED Sex: F Room/Bed: Att Phy: Diagnosis: SEVERE R SIDE ABD PAIN, VOMITING, DRY HEAVES, COLD Corine Phy: Horacio Morgan DO Service Date: 04/06/24 [facility] Phy: Interpreting Phy: Nicholas Georgeit Phy: Ordering Phy: Ashley Montana PA-C cc: ~ CT SCAN OF THE ABDOMEN AND PELVIS WITH IV CONTRAST CLINICAL HISTORY: Right lower quadrant abdominal pain. COMPARISON STUDY: No priors. TECHNIQUE: Following the IV administration of 95 cc of Optiray 320, CT scan of the abdomen and pelvis is performed from the lung bases to the proximal femora. Images are reviewed in the axial, sagittal, and coronal planes. IV contrast was administered without complication. A dose lowering technique was utilized adhering to the principles of ALARA. CT DOSE: 499.56 mGy.cm FINDINGS: Lung bases: The patient is status post midline sternotomy and aortic valve surgeries. The heart is enlarged and without pericardial effusion. Emphysematous change is noted. There is mild dependent scarring/atelectasis. No airspace consolidation or pleural effusion is identified. There is a small hiatal hernia. Liver: The contrast-enhanced liver is normal in size, contour, and attenuation. There is no intrahepatic biliary ductal dilatation. The hepatic veins and portal veins are patent. Gallbladder: There are gallstones with no CT evidence of acute cholecystitis. Spleen: Normal in size and attenuation. Pancreas: Unremarkable. Adrenal glands: Unremarkable. Kidneys: The contrast enhanced kidneys are normal in size and without hydronephrosis. The kidneys enhance symmetrically. Abdominal vasculature: The abdominal aorta is normal in course and caliber noting mild to moderate atherosclerotic calcification. Bowel: There are scattered colonic diverticula without CT evidence of acute diverticulitis. No bowel obstruction is seen. The appendix is severely dilated and fluid-filled, measuring up to 1.5 cm in diameter as seen on image #184. The appendiceal wall is thickened and hyperemic with significant surrounding inflammation and fluid. Large calcified appendicoliths are seen in the base of the appendix on image #197. There is apparent discontinuity of the appendiceal wall on axial image #189. Perforation is not excluded. No organized/drainable fluid collection is identified to indicate abscess. Wall thickening and edema of the adjacent cecum is likely related to appendicitis. Peritoneum: There is no intraperitoneal free air or abdominal ascites. There is a fat-containing umbilical hernia. Lymphadenopathy: None. Pelvic viscera: Evaluation of the pelvis is degraded by streak artifact from a left hip arthroplasty. The bladder is distended and appears mildly thick walled. The uterus and adnexa are normal as visualized. There is free fluid in the cu l-de-sac. Surgical clips are seen in the right groin. Skeletal structures: The skeletal structures are osteopenic. There is moderate lumbosacral spondylosis as well as mild scoliosis. No lytic or blastic lesions are seen. A left hip arthroplasty is in place. Mild sclerotic changes noted in the sacroiliac joints. IMPRESSION: 1. Severe acute appendicitis with findings suspicious for developing p erforation. 2. There is significant inflammatory change and fluid around the appendix. No organized collection is seen to indicate abscess. 3. Nonspecific free fluid in the cul-de-sac may be reactive. 4. The bladder wall appears thickened. Correlate with clinical findings and urinalysis. 5. Cholelithiasis. 6. Cardiomegaly and emphysema. 7. Additional findings as above. ACT 112: Negative or not required by law. Electronically signed by: Nicholas Mar M.D. 04/06/2024 11:07 AM Dictated: 04/06/24 1100 Transcribed: 04/06/24 1100 Results CBC w Diff Results: RBC 5.00 M/uL (4.20-5.40) 04/06/24 WBC 19.24 K/ul (4.8-10.8) H 04/06/24 Hgb 16.2 g/dl (12.0-16.0) H 04/06/24 Hct 46.4 % (37.0-47.0) 04/06/24 MCV 92.8 fL (80.0-100.0) 04/06/24 MCH 32.4 pg (25.0-34.0) 04/06/24 MCHC 34.9 g/dL (32.0-36.0) 04/06/24 RDW Standard Deviation 44.0 fL (36.4-46.3) 04/06/24 RDW Coefficient of Variation 13.0 % (11.5-14.5) 04/06/24 Plt Count 255 K/uL (130-400) 04/06/24 MPV 9.5 fL (9.4-12.4) 04/06/24 Neutrophils (%) (Auto) 89.3 % 04/06/24 Lymphocytes (%) (Auto) 4.6 % 04/06/24 Monocytes # (Auto) 0.75 K/uL (0.11-0.59) H 04/06/24 Eosinophils # (Auto) 0.15 K/uL (0.00-0.50) 04/06/24 Immature Granulocyte % (Auto) 1.1 % 04/06/24 Neutrophils # (Auto) 17.19 K/uL (1.40-6.50) H 04/06/24 Lymphocytes # (Auto) 0.89 K/uL (1.20-3.40) L 04/06/24 Monocytes # (Auto) 0.75 K/uL (0.11-0.59) H 04/06/24 Eosinophils # (Auto) 0.15 K/uL (0.00-0.50) 04/06/24 Basophils # (Auto) 0.05 K/uL (0.00-0.20) 04/06/24 Immature Granulocyte # (Auto) 0.21 K/uL (0.01-0.20) H 04/06 PG Care Time/CCT Total # of Minutes Spent Total Time Spent with Patient: Total time spent is greater than 50% in coordination of care (as documented) at patient's floor/unit and/or counseling patient: Coding Level of Care Code 18146 INT INP/OBS CARE 1/40MIN Diagnoses Acute appendicitis K35.80
[2024-04-06] MEDS: MAGNESIUM SULFATE / D5W 1 GM/100 ML BAG IV SCH (12:08)
[2024-04-06] MEDS ORDERED: ACETAMINOPHEN 1,000 MG/100 ML VIAL IV PRN (14:00)
[2024-04-06] MEDS ORDERED: ONDANSETRON INJ 2 MG/ML 2 ML VIAL IV PRN ×2 (14:00→15:33)
[2024-04-06] MEDS ORDERED: MoRPHine SULFATE 2 MG/ML CARP IV PRN (14:00)
[2024-04-06] MEDS: MoRPHine SULFATE 4 MG/ML 1 ML CARP\\VIAL IV PRN (14:11)
--- NOTE | 2024-04-06 14:43 | Anesthesiology Consultation ---
Date of Service April 06, 2024 Assessment & Plan (1) Encounter for pre-operative examination: Chart Review Chart Review: Acceptable Risk for Surgery and Patient NOT seen in Pre Admission Testing Consults Requested none History Surgery Operation Date: 04/06/24 10:30 Proposed Procedures p Laparoscopic Appendectomy - Dewey Cano DO Height/Weight Height: 5 ft 4 in Weight: 60.282 kg Allergies Allergy/AdvReac Type Severity Reaction Status Date / Time amoxicillin [From Augmentin] Allergy Unknown cdif Verified 03/17/24 09:31 clavulanic acid Allergy Unknown cdif Verified 03/17/24 09:31 [From Augmentin] sulfamethoxazole Allergy Unknown Rash Verified 03/17/24 09:31 [From Bactrim] trimethoprim [From Bactrim] Allergy Unknown Rash Verified 03/17/24 09:31 codeine AdvReac Unknown "really Verified 03/17/24 09:31 sick" duloxetine [From Cymbalta] AdvReac Drowsy Verified 04/06/24 14:06 Medications Home Medications Medication Instructions Recorded Confirmed Last Taken ferrous sulfate 324 mg (65 mg 324 mg PO QAM 01/12/22 04/06/24 05/04/23 iron) tablet,delayed release nitroglycerin 0.4 mg sublingual 0.4 mg sublingual Q5M PRN chest 05/05/23 04/06/24 Unknown tablet (Nitrostat) pain #25 tabs aspirin 81 mg tablet,delayed 81 mg PO DAILY #90 tabs 06/03/23 04/06/24 Unknown release (Adult Low Dose Aspirin) mecobalamin (vitamin B12) 500 mcg 500 mcg PO DAILY 07/27/23 04/06/24 Unknown chewable tablet sennosides 8.6 mg tablet (senna) 8.6 mg PO QAM PRN Constipation 07/27/23 04/06/24 Unknown omeprazole 20 mg capsule,delayed 20 mg PO QAM #90 caps 08/11/23 04/06/24 Unknown release multivitamin (Daily Multi-Vitamin 1 tab PO QAM #90 tabs 09/03/23 04/06/24 Unknown tablet) vitamin B complex 1 tab PO DAILY 09/14/23 04/06/24 Unknown magnesium oxide 400 mg PO QAM #30 tabs 10/05/23 04/06/24 Unknown Ventolin HFA 90 mcg/actuation 2 puff inhalation QID #8 grams 11/10/23 04/06/24 Unknown aerosol inhaler (albuterol sulfate) trospium 60 mg capsule,extended 60 mg PO DAILY #90 caps 11/10/23 04/06/24 Unknown release 24 hr acetaminophen 650 mg 650 mg PO Q6H PRN Pain 11/12/23 04/06/24 Unknown tablet,extended release folic acid 1 mg tablet 1 mg PO QAM #90 tabs 01/21/24 04/06/24 Unknown buspirone 10 mg tablet 10 mg PO BID #180 tabs 02/17/24 04/06/24 Unknown escitalopram oxalate 20 mg tablet 20 mg PO DAILY #90 tabs 02/21/24 04/06/24 Unknown (Lexapro) sodium chloride 1,000 mg soluble 1,000 mg PO DAILY #30 tabs 02/29/24 04/06/24 Unknown tablet alprazolam 0.5 mg tablet 0.5 mg PO QID #120 tabs 03/17/24 04/06/24 Unknown levothyroxine 50 mcg tablet 50 mcg PO DAILY #30 tabs 03/18/24 04/06/24 Unknown (Synthroid) doxycycline hyclate 100 mg capsule 100 mg PO DAILY PRN dental 04/06/24 04/06/24 Unknown appointment rosuvastatin 20 mg tablet 10 mg PO UD 04/06/24 04/06/24 Unknown Active Medications Generic Name Dose Route Start Last Admin Trade Name Freq PRN Reason Stop Dose Admin Magnesium Sulfate/Dextrose 1 gm in 100 mls @ 50 mls/hr 04/06/24 11:45 04/06/24 14:02 Magnesium Sulfate / D5w IV 04/06/24 19:44 50 mls/hr Q2H HAO Administration Morphine Sulfate 4 mg 04/06/24 14:00 04/06/24 14:11 Morphine Sulfate 4 Mg/Ml 1 Ml Carp\\Vial IV 04/20/24 13:59 4 mg Q3H PRN Administration Severe Pain (7,8,9,10) on NRS Past Medical History Medical History (Updated 04/06/24 @ 14:42 by Malachi Brown MD) Acute appendicitis CAD (coronary artery disease) Pulmonary hypertension Mild with RVSP at 44mmHg per 02/2023 ECHO History of high blood pressure Heart problem History of seizure D/T LOW SODIUM LEVEL DECEMBER 2021 ...NO RE-OCCURENCE Avascular necrosis of left femoral head hx of and had hip replaced Hx of gastroesophageal reflux (GERD) Depression Hypothyroidism CARDIOLOGY visit 03/14/24: Assessment and Plan Assessment and Plan (1) CAD (coronary artery disease): (2) Mitral regurgitation: (3) Tricuspid regurgitation: (4) Pulmonary hypertension: (5) Cardiomyopathy: (6) Dyspnea on exertion: (7) Tobacco use: (8) Heart failure with mid-range ejection fraction: Plan ASSESSMENT/PLAN: 1. Mitral regurgitation s/p MV replacement:Rheumatic mitral valve disease. Doing well following mitral valve replacement. Exercise tolerance has improved. SBE prophylaxis for dental cleaning. Recommended twice yearly dental cleaning. Amoxicillin is listed as an allergy (possible C. difficile in the past on Augmentin). Azithromycin may interact with Lexapro. Doxycycline ordered for SBE prophylaxis. 2. Tricuspid regurgitation s/p repair: Doing well following surgery. Can monitor periodically. 3. Pulmonary hypertension: Appeared to be pre and postcapillary based on cath findings. Has since undergone mitral valve replacement. RVSP on 08/24/2023 echo was normal. 4. CAD s/p CABG x 1: No angina. Increased exercise tolerance. Continue aspirin 81 mg daily. She did not tolerate atorvastatin due to diarrhea. She is tolerating rosuvastatin. Will wean and then discontinue metoprolol given nightmares. She was asked to reduce metoprolol to 25 mg daily for 1 week and then discontinue. 5. Chronic heart failure with improved EF: Euvolemic on exam. NYHA class I. No longer requires diuretic. SGLT2 inhibitor has since been discontinued. 6. Cardiomyopathy: Mildly reduced LV systolic function with RCA wall motion abnormality in the past, but LV systolic function was low normal following revascularization. Discontinuing metoprolol as noted for nightmares and fatigue. Past Family History Family History Mother Anxiety Bipolar disorder Heart disease Depression Breast cancer Father Bipolar disorder Lung disease Colorectal cancer Prostate cancer Past Surgical History Surgical History (Updated 04/06/24 @ 14:42 by Malachi Brown MD) S/P CABG x 1 S/P mitral valve replacement S/P tricuspid valve repair History of surgery (10/19/22) FINAL DIAGNOSIS In office procedure Dr. Luis Skin, right lower extremity, "right lower extremity skin lesion" (Punch biopsy): - Sclerosing dermatitis (see comment). Hx of cataract extraction Left and right History of total left hip arthroplasty DECEMBER 2021 Hx of breast biopsy lt.>benign History of esophagogastroduodenoscopy (EGD) History of open reduction and internal fixation (ORIF) procedure pinning in left hip done at [facility] and then hip needed replaced History of colonoscopy History of tonsillectomy Social History Smoking Status: Current every day smoker tobacco type: cigarettes Smoking cigarettes per day: <10 Do You Dip or Chew Tobacco: No Hx Alcohol Use: Yes Alcohol type: wine alcohol intake frequency: holidays/special occasions only Hx Substance Use: No substance use type: does not use Last Used Substance Other:: years ago Physical Exam Vital Signs Last Vital Signs Temp 36.7 C 04/06/24 14:21 Pulse 115 H 04/06/24 14:21 Resp 20 04/06/24 14:21 BP 116/70 04/06/24 14:21 Pulse Ox 93 04/06/24 14:21 O2 Del Method Room Air 04/06/24 14:21 O2 Flow Rate 0 04/06/24 14:21 Testing Laboratory Results 04/06/24 09:24 04/06/24 09:24 PT 10.5 Seconds (9.0-12.0) 04/06/24 09:24 INR 1.0 (0.9-1.1) 04/06/24 09:24 APTT 27 Seconds (21-31) 04/06/24 09:24 Electrocardiogram Date: 04/06/24 DICTATED BY: Shukri Barber MD Test Reason : Blood Pressure : */* mmHG Vent. Rate : 121 BPM Atrial Rate : 121 BPM P-R Int : 162 ms QRS Dur : 68 ms QT Int : 316 ms P-R-T Axes : 45 55 61 degrees QTcB Int : 448 ms Sinus tachycardia Low voltage QRS Poor R wave progression, consider anterior MS vs. lead placement vs. LVH Abnormal ECG When compared with ECG of 04-Dec-2022 20:16, No significant change was found Confirmed by Shukri Barber ([id number]) on 04/06/2024 11:35:07 AM Chest X-Ray Date: 04/06/24 XR chest 1V portable CLINICAL HISTORY: Abdominal pain. COMPARISON STUDY: Chest radiograph and chest CT December 04, 2022. FINDINGS: Status post median sternotomy and placement of a prosthetic cardiac valve. Lung volumes are normal. Lungs are clear. There is no pneumothorax or pleural effusion. Cardiac size is normal. Mediastinal contours are normal. There is no evidence for pulmonary edema. There is no lucency under the hemidiaphragms to suggest pneumoperitoneum on upright chest radiograph. IMPRESSION: No acute cardiopulmonary findings. Other Testing She has had the following studies/procedures: 1. Echo 01/26/2022 [facility]: Normal LV size, wall motion, systolic function. EF 60 to 65%. Mild left atrial dilation. Moderate to severe MR. Mild pulmonary hypertension. RVSP 37-42 mmHg. 2. Holter 02/27/2022 to 03/02/2022: Sinus rhythm with average heart rate 97 bpm (78-155). Very rare PVCs. Very rare supraventricular ectopic complexes. Nonsustained SVT up to 4 beats in duration. No reported symptoms. 3. CTA chest 12/04/2022: No PE. No thoracic aortic aneurysm. Mild changes of COPD. 4. Echo 03/19/2023 [facility]: Normal LV size. EF 45 to 50%. Severe hypokinesis of the inferoseptal base and severe hypokinesis to akinesis of the basal inferior wall. Mild LVH. Borderline dilated RV with mildly reduced systolic function. Moderate biatrial dilation. Restricted posterior mitral leaflet with at least moderate MR. Moderate to severe TR. RVSP 44. Compared to 01/26/2022 study, biventricular systolic function has declined. 5. MEGHA 04/23/2023 [facility]: Normal LV size. EF 50 to 55%. Hypokinesis of the basal inferior wall. Septal flattening during diastole suggests possible RV volume overload. Mildly dilated RV. Severe MR. Moderate TR. 6. Cardiac cath 05/05/2023 [facility]: Mid LAD 30 to 40%. Medium caliber D2 ostial 95%. Distal circumflex 90%. Dominant RCA. Proximal RCA diffuse 90%. Mid RCA 100%. PDA and PL branches fill via right to right and [id number] collaterals. PCWP 27. PA 66/28 mean 41. RV 61/16 RVEDP 21. Mean RAP 22. CO via thermodilution 2.33 with CI 1.37. William CO 4.31 and CI 2.54. PVR 6 via thermodilution and 3.25 via William. LVEDP 17. No AAS. Performed via left radial artery. Unable to advance access wire via right radial artery. 7. Mitral valve replacement (31 mm SJM Epic tissue valve), tricuspid valve repair (28 mm Medtronic Contour 3D annuloplasty ring), CABG x1 (SVG-distal RCA), and [place] of left atrial appendage 06/24/23 [place] [facility] [place] Mitral valve was consistent with rheumatic valve disease. 8. [place] [facility] [place] size, wall motion, and systolic function. EF 60- 65%. Bioprosthetic mitral valve appears well seated. Mean gradient 5 mmHg (HR 98 bpm with frequent ectopy). No significant mitral valve regurgitation. 9. Echo 08/24/23 [facility]: Normal LV size with low normal systolic function. EF 50- 55%. Hypokinesis of basal inferoseptum. Mild LVH. Bioprosthetic mitral valve replacement with acceptable transvalvular gradient and trace regurgitation. Tricuspid annuloplasty ring with trace regurgitation. RVSP 25
[2024-04-06] MEDS ORDERED: MIDAZOLAM HCL 1 MG/ML 2ML VIAL ONE (14:49)
[2024-04-06] MEDS ORDERED: fentaNYL citrate PF 100 MCG/2 ML VIAL ONE (14:49)
[2024-04-06] MEDS ORDERED: ROCURONIUM BROMIDE 10 MG/ML 5 ML VIAL IV ONE (14:50)
[2024-04-06] MEDS ORDERED: PROPOFOL IV EMULSION 10 MG/ML 20 ML VIAL IV ONE (14:50)
[2024-04-06] MEDS ORDERED: LIDOCAINE 2% 2 ML VIAL/AMP(20MG/ML) INFIL ONE (14:50)
[2024-04-06] MEDS ORDERED: DEXAMETHASONE SOD INJ 4 MG/ML VIAL ONE (14:50)
[2024-04-06] MEDS ORDERED: ONDANSETRON INJ 2 MG/ML 2 ML VIAL ONE (14:50)
[2024-04-06] MEDS: ALBUTEROL HFA 8 GM INHALER INH SCH (15:27)
[2024-04-06] MEDS ORDERED: HYDROmorphone INJ 2 MG/ML SYR/VIAL IV PRN (15:33)
[2024-04-06] MEDS ORDERED: ATROPINE SULFATE 0.1 MG/ML 10ML SYR IV PRN (15:33)
[2024-04-06] MEDS ORDERED: PROMETHAZINE HCL 6.25 MG in SODIUM CHLORIDE 0.9% 50 ML IV PRN (15:33)
[2024-04-06] MEDS ORDERED: fentaNYL citrate PF 100 MCG/2 ML VIAL IV PRN (15:33)
[2024-04-06] MEDS ORDERED: ePHEDrine sulfate 50 MG/ML AMP IV PRN (15:33)
[2024-04-06] MEDS ORDERED: PHENYLEPHRINE HCL 10 MG/ML VIAL ONE (15:46)
[2024-04-06] MEDS ORDERED: PHENYLEPHRINE 100MCG/ML 10ML SYR IV ONE ×2 (16:06→16:16)
[2024-04-06] MEDS ORDERED: SUGAMMADEX SODIUM 200 MG/2 ML VIAL IV ONE (16:11)
[2024-04-06] MEDS: BUPIVACAINE/EPINEPHRINE 0.5% MPF 1:200,000 30 ML VIAL ONE (16:25)
--- NOTE | 2024-04-06 16:36 | Operative Report ---
PG Post Operative Report Pre & Post Diagnosis Operation Date: 04/06/24 10:30 Pre-Op Diagnosis: Acute Appendicitis Post-Op Diagnosis: Acute Appendicitis with perforation I identified the patient and participated in the time-out.: Yes Procedure Operation Date: 04/06/24 10:30 Actual Procedures p Laparoscopic Appendectomy(Not Applicable) - Dewey Cano DO Surgeon Dewey Cano DO Pipe Puller isacc mccann Estimated Blood Loss 25 Findings Consistent with Post-Op Diagnosis Specimens appendix Description of Procedure After informed consent was obtained the patient was taken to the operating room and placed in supine position. After successful intubation a Jimenez catheter was placed and the left arm was tucked. I began by making a periumbilical incision with an 11 blade scalpel and carried this down through the soft tissue using electrocautery. The anterior rectus fascia was opened using electrocautery and 2 #0 Vicryl stay sutures were placed. The peritoneum was elevated using hemostats and incised under direct vision using a Metzenbaum scissor. A finger sweep was performed. A 12 mm Espinoza trocar was placed and the abdomen was insufflated to 18 mmHg. A laparoscope was inserted and the abdomen was examined in 360. There was some purulent fluid in the right lower quadrant as well as the pelvis. There is also a lot of inflammation in the right lower quadrant. A suprapubic 5 mm port and a left lower quadrant 12 mm port were placed under direct vision. The patient was air planed to the left as well as placed in a slight Trendelenburg position. We began by looking in the right lower quadrant. We were able to readily identify the appendix and it was severely grossly inflamed. He had a tiny hole in the tip. We immediately irrigated and suctioned this out. I was able to use primarily blunt dissection to pull the appendix away from the right lower quadrant sidewall. I then used a [place] dissector to find a plane between the base of the appendix and the cecum. I stapled this off using a MARCO ANTONIO purple cartridge stapler. I then had to gently peel the appendix off of the cecum. I used a MARCO ANTONIO brown cartridge linear stapler to transect the mesentery of the appendix. It was then placed into an Endo Catch bag and removed from the camera port site. We thoroughly irrigated the right lower quadrant as well as the pelvis. There was adequate hemostasis. I ran the small bowel backwards from the terminal ileum for about 6 feet all of which was normal. All the peritoneal surfaces were normal. Small/ large bowel, liver, stomach etc. all appeared grossly normal. We did a final irrigation and then placed a 10 flat Ar-Cash drain into the pelvis angle towards the right lower quadrant. It was brought out through the left lower quadrant trocar site secured to the skin using 0 Vicryl. Next, I removed all the trochars and desufflated the abdomen. The fascia of the camera port was closed using 0 Vicryl in [id number] fashion. Wounds were all irrigated and closed using 4-0 Monocryl. Marcaine was injected around them for postoperative analgesia and skin glue used as a dressing. The patient was awakened extubated and transferred to recovery in stable condition. My [facility] perinatal breastfeeding assistant was present through the entire case. She assisted with prepping the patient and helped with exposure for port placement, helped run the camera and helped with fascial/wound closure at the end of the procedure as well as dressing placement. I attest to the content of the Intraoperative Record and any orders documented therein. Any exceptions are noted below. I attest to the content of the Intraoperative Record and any orders documented therein. Any exceptions are noted below.
[2024-04-06] MEDS: ALPRAZolam 0.5 MG TABLET PO SCH (18:03)
[2024-04-06] MEDS: PIPERACILLIN/TAZOBACTAM 4.5 GM/100 ML BAG IV SCH (18:13)
[2024-04-06] MEDS ORDERED: Nursing to Pharmacy Communication SCH (18:15)
[2024-04-06] MEDS: LACTATED RINGER'S 1,000 ML IV SCH (18:20)
--- NOTE | 2024-04-06 18:35 | Anesthesiology Progress Note ---
Date of Service April 06, 2024 Anesthesia Post Procedure Vital Signs Vital Signs: Temp Pulse Pulse Pulse Resp BP BP 04/06/24 18:20 36.6 C 104 H 16 04/06/24 17:47 107 H 04/06/24 17:47 37.2 C 107 H 16 04/06/24 17:20 36.4 C L 110 H 16 101/59 L 04/06/24 17:10 112 H 16 95/62 L 04/06/24 17:00 113 H 16 109/61 04/06/24 16:50 121 H 16 112/64 04/06/24 16:43 36.8 C 121 H 16 154/80 H 04/06/24 15:05 36.9 C 107 H 102/55 L 04/06/24 14:21 36.7 C 115 H 20 04/06/24 14:21 04/06/24 14:03 112 H 04/06/24 14:02 04/06/24 13:50 04/06/24 13:50 36.7 C 115 H 20 04/06/24 13:49 36.7 C 115 H 20 04/06/24 13:00 113 H 18 92/53 L 04/06/24 11:27 124 H 18 124/79 04/06/24 09:33 126 H 24 04/06/24 09:31 126 H 04/06/24 09:21 36.9 C 127 H 24 155/84 H 04/06/24 09:17 124 H 20 123/70 BP Pulse Ox Pulse Ox O2 Del Method O2 Del Method O2 Flow Rate O2 Flow Rate 04/06/24 18:20 97/60 L 95 Room Air 04/06/24 17:47 04/06/24 17:47 98/61 L 96 Nasal Cannula 3 04/06/24 17:20 95 Nasal Cannula 3 04/06/24 17:10 95 Nasal Cannula 3 04/06/24 17:00 95 Room Air 04/06/24 16:50 95 Oxymask 5 04/06/24 16:43 95 Oxymask 5 04/06/24 15:05 95 Room Air 04/06/24 14:21 116/70 93 Room Air 04/06/24 14:21 93 Room Air 0 04/06/24 14:03 04/06/24 14:02 Room Air 04/06/24 13:50 Room Air 04/06/24 13:50 116/70 93 Room Air 04/06/24 13:49 116/70 93 Room Air 04/06/24 13:00 94 Room Air 04/06/24 11:27 96 Room Air 04/06/24 09:33 97 Room Air 04/06/24 09:31 04/06/24 09:21 97 Room Air 04/06/24 09:17 94 Room Air Pain Intensity Right Abdomen: Pain Intensity: 8 Transfer of Care Handoff Completed per policy Notes Mental Status: alert / awake / arousable and participated in evaluation Patient Amnestic to Procedure: Yes Nausea / Vomiting: adequately controlled Pain: adequately controlled Airway Patency, RR, SpO2: stable & adequate BP & HR: stable & adequate Hydration State: stable & adequate Anesthetic Complications: no major complications apparent
[2024-04-06] MEDS: busPIRone 5 MG TAB PO SCH (20:14)
[2024-04-06] MEDS: ROSUVASTATIN CALCIUM 20 MG TAB PO SCH (20:14)
[2024-04-07] MEDS: oxyCODONE HCL IR 5 MG TAB (IMMEDIATE RELEASE) PO PRN ×2 (00:56→12:01)
[2024-04-07] MEDS: LEVOTHYROXINE SODIUM 50 MCG TABLET PO SCH (05:37)
[2024-04-07 07:13] LABS: Appearance Urine Clear (Clear); Bilirubin Urine Negative (Negative); Blood Urine Negative (Negative); Color Urine Yellow; Glucose Urine UA Negative (Negative); Ketones Urine Negative (Negative); Leukocyte Esterase Urine Negative (Negative); Nitrite Urine Negative (Negative); Protein Urine 1+ (Negative); Urobilinogen Urine Negative (Negative); pH Urine 5.5 (4.5-7.5)
[2024-04-07 07:29] LABS: Calcium 8.7 mg/dl (8.6-10.3)
[2024-04-07 07:30] LABS: BUN Creatinine Ratio 13.9 (10-20); Creatinine Clr Calc Pharmacy 67.3 ml/min; Magnesium 2.3 mg/dl (1.7-2.4)
[2024-04-07 07:31] LABS: Epithelial Cell Urine 0-2 /hpf (0-2); RBC Urine 0-2 /hpf (0-2); WBC Urine 0-5 /hpf (0-5)
[2024-04-07 07:32] LABS: Bacteria Urine 1+ (None Seen)
[2024-04-07] MEDS: ESCITALOPRAM OXALATE 20 MG TAB PO SCH (08:03)
[2024-04-07] MEDS: ASPIRIN 81 MG ECTAB PO SCH (08:03)
[2024-04-07] MEDS: MAGNESIUM OXIDE 400 MG TAB PO SCH (08:04)
[2024-04-07] MEDS: FERROUS SULFATE 325 MG TAB PO SCH (08:04)
[2024-04-07] MEDS: SODIUM CHLORIDE 1 GM TABLET PO SCH (08:04)
[2024-04-07] MEDS: FOLIC ACID 1 MG TAB PO SCH (08:04)
[2024-04-07] MEDS: PANTOprazole 40 MG TAB PO SCH (08:04)
[2024-04-07 08:15] LABS: Hematocrit (blood only) 35.2 % (37.0-47.0); Hemoglobin 12.2 g/dl (12.0-16.0); Mean Corpuscular Hemoglobin 32.8 pg (25.0-34.0); Mean Corpuscular Hgb Conc 34.7 g/dL (32.0-36.0); Mean Corpuscular Volume 94.6 fL (80.0-100.0); Mean Platelet Volume 9.8 fL (9.4-12.4); Platelet Count 163 K/uL (130-400); RDW Coefficient of Variation 13.3 % (11.5-14.5); RDW Standard Deviation 46.5 fL (36.4-46.3); Red Blood Count 3.72 M/uL (4.20-5.40); White Blood Count 14.27 K/ul (4.8-10.8)
--- NOTE | 2024-04-07 08:15 | Hospitalist Progress Note ---
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, tricuspid repair and cad with CABGx1 Clinically, patient denies chest pain, chest palpitations, or SOB Troponin normal (3) Hypomagnesemia: Plan: Magnesium 1.2 on arrival, concern with h/o alcohol abuse replete 04/07 (4) Hyponatremia: Plan: Chronic; however low on admission improved to 129 SIADH labs ordered, s osm low, u osm nl and random urine sodium >20 , suspect (5) Tobacco use: Plan: Patient is a current everyday tobacco cigarette smoker; 0.5-1.0 PPD Nicotine patch if needed Plan Full code VTE PPx: SCDs; hold chemical DVT PPX prior to surgery Admission and Anticipated Discharge Date Admission Date: April 06, 2024 Subjective doing well tolerating clears some RLQ abdominal pain Results & Data Results & Data Vital Signs (Past 12 Hours) Vital Signs Temp Pulse Pulse Resp BP Pulse Ox O2 Del Method 04/07/24 05:36 89 04/07/24 03:49 97.7 F 90 16 107/60 94 Room Air 04/06/24 23:28 97.9 F 90 18 103/56 L 93 Room Air 04/06/24 21:44 92 H 04/06/24 20:10 Room Air Laboratory Results review cbc review prp, has chronic hyponateria, near usual range PG Care Time/CCT Total # of Minutes Spent Total Time Spent with Patient: Total time spent is greater than 50% in coordination of care (as documented) at patient's floor/unit and/or counseling patient: Coding Level of Care Code 58467 SUB INP/OBS CARE 2/35MIN Diagnoses Acute appendicitis K35.80 Sinus tachycardia R00.0 Hypomagnesemia E83.42 Hyponatremia E87.1 Tobacco use Z72.0
[2024-04-07 08:17] LABS: Basophils # (auto) 0.02 K/uL (0.00-0.20); Basophils % (auto) 0.1 %; Echinocytes 1+; Eosinophils # (auto) 0.01 K/uL (0.00-0.50); Eosinophils % (auto) 0.1 %; Immature Granulocytes # (auto) 0.24 K/uL (0.01-0.20); Immature Granulocytes % (auto) 1.7 %; Lymphocytes # (auto) 0.46 K/uL (1.20-3.40); Lymphocytes % (auto) 3.2 %; Monocytes # (auto) 0.53 K/uL (0.11-0.59); Monocytes % (auto) 3.7 %; Neutrophils # (auto) 13.01 K/uL (1.40-6.50); Neutrophils % (auto) 91.2 %
[2024-04-07] MEDS ORDERED: ALBUTEROL HFA 8 GM INHALER INH PRN (08:18)
--- NOTE | 2024-04-07 08:39 | Surgery Progress Note ---
Date of Service April 07, 2024 Assessment & Plan (1) S/P laparoscopic appendectomy: Plan: POD 1 expected post surgical discomfort denies n/v , tolerating clears if tolerates breakfast may SALVADOR VSS, afebrile, HR 82 port site CDI, dermabond PRINCESS serosanguineous, dressing changed 65/95cc in 12/24hr encouraged OOB , to sit on toilet and try to void WBC downtrending 14(19) [facility] is covering the weekend as above. doing as expected. drain looks good. having issues with urinary retention..... will d/w nursing. will need to get OOB and try...if needs another straight cath can place gooden for a couple days. stay on clears for now. Admission and Anticipated Discharge Date Admission Date: April 06, 2024 Subjective pt with expected post surgical discomfort reports had to be straight cathed x4 since procedure has hx of urinary incontinence Review of Systems Constitutional: no fever and no chills Respiratory: no dyspnea Cardiovascular: no chest pain Gastrointestinal: + abdominal pain; no nausea and no vomit ing Genitourinary: + problem reported Musculoskeletal: no muscle weakness Integumentary: no rash Psychiatric: no confusion Physical Exam Constitutional: cooperative and comfortable; no acute distress Respiratory: normal respiratory effort and able to speak in complete sentences; no respiratory distress Cardiovascular: Rate/Rhythm: regular rate Gastrointestinal (Abdomen): Inspection/Auscultation: + abdominal surgical drain present; abdomen not distended Percussion/Palpation: + abdomen tender and abdomen soft Skin: no rashes, warm and dry Results & Data Vital Signs (Past 12 Hours) Vital Signs Temp Pulse Pulse Pulse Resp BP Pulse Ox 04/07/24 08:10 97.5 F L 82 12 115/64 91 04/07/24 05:36 89 04/07/24 03:49 97.7 F 90 16 107/60 94 04/06/24 23:28 97.9 F 90 18 103/56 L 93 04/06/24 21:44 92 H O2 Del Method 04/07/24 08:10 Room Air 04/07/24 05:36 04/07/24 03:49 Room Air 04/06/24 23:28 Room Air 04/06/24 21:44 Results CBC w Diff Results: RBC 3.72 M/uL (4.20-5.40) L 04/07/24 WBC 14.27 K/ul (4.8-10.8) H 04/07/24 Hgb 12.2 g/dl (12.0-16.0) 04/07/24 Hct 35.2 % (37.0-47.0) L 04/07/24 MCV 94.6 fL (80.0-100.0) 04/07/24 MCH 32.8 pg (25.0-34.0) 04/07/24 MCHC 34.7 g/dL (32.0-36.0) 04/07/24 RDW Standard Deviation 46.5 fL (36.4-46.3) H 04/07/24 RDW Coefficient of Variation 13.3 % (11.5-14.5) 04/07/24 Plt Count 163 K/uL (130-400) 04/07/24 MPV 9.8 fL (9.4-12.4) 04/07/24 Neutrophils (%) (Auto) 91.2 % 04/07/24 Lymphocytes (%) (Auto) 3.2 % 04/07/24 Monocytes # (Auto) 0.53 K/uL (0.11-0.59) 04/07/24 Eosinophils # (Auto) 0.01 K/uL (0.00-0.50) 04/07/24 Immature Granulocyte % (Auto) 1.7 % 04/07/24 Neutrophils # (Auto) 13.01 K/uL (1.40-6.50) H 04/07/24 Lymphocytes # (Auto) 0.46 K/uL (1.20-3.40) L 04/07/24 Monocytes # (Auto) 0.53 K/uL (0.11-0.59) 04/07/24 Eosinophils # (Auto) 0.01 K/uL (0.00-0.50) 04/07/24 Basophils # (Auto) 0.02 K/uL (0.00-0.20) 04/07/24 Immature Granulocyte # (Auto) 0.24 K/uL (0.01-0.20) H 04/07 Echinocytes 1+ 04/07/24 PG Care Time/CCT Total # of Minutes Spent Total Time Spent with Patient: Total time spent is greater than 50% in coordination of care (as documented) at patient's floor/unit and/or counseling patient: Coding Level of Care Code 25636 Post Operative Follow-Up Diagnoses S/P laparoscopic appendectomy Z90.49
[2024-04-07] MEDS: ACETAMINOPHEN 1,000 MG/100 ML VIAL IV SCH (12:00)
--- NOTE | 2024-04-07 16:31 | Hospitalist Progress Note ---
Date of Service April 07, 2024 Assessment & Plan (1) Acute appendicitis: Plan: Acute onset of RLQ abdominal pain and vomiting the evening of 04/05. 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, tricuspid repair and cad with CABGx1 Clinically, patient denies chest pain, chest palpitations, or SOB Troponin normal (3) Hypomagnesemia: Plan: Magnesium 1.2 on arrival, concern with h/o alcohol abuse replete 04/07 (4) Hyponatremia: Plan: Chronic; however low on admission improved to 129 SIADH labs ordered, s osm low, u osm nl and random urine sodium >20 , suspect (5) Tobacco use: Plan: Patient is a current everyday tobacco cigarette smoker; 0.5-1.0 PPD Nicotine patch if needed Plan Full code VTE PPx: SCDs; hold chemical DVT PPX prior to surgery Admission and Anticipated Discharge Date Admission Date: April 06, 2024 Results & Data Results & Data Vital Signs (Past 12 Hours) Vital Signs Temp Pulse Pulse Resp BP BP Pulse Ox 04/07/24 15:44 97.7 F 81 20 102/59 L 90 04/07/24 13:00 89 04/07/24 11:47 97.9 F 83 20 115/67 93 04/07/24 08:10 97.5 F L 82 12 115/64 91 04/07/24 05:36 89 O2 Del Method 04/07/24 15:44 Room Air 04/07/24 13:00 04/07/24 11:47 Room Air 04/07/24 08:10 Room Air 04/07/24 05:36 PG Care Time/CCT Total # of Minutes Spent Total Time Spent with Patient: Total time spent is greater than 50% in coordination of care (as documented) at patient's floor/unit and/or counseling patient: Coding Level of Care Code None Diagnoses Acute appendicitis K35.80 Sinus tachycardia R00.0 Hypomagnesemia E83.42 Hyponatremia E87.1 Tobacco use Z72.0
--- NOTE | 2024-04-08 03:22 | Communication Note ---
Date of Service: April 08, 2024 Was notified at approximately 2:30 AM by nursing the patient was refusing her Zosyn and was requesting to leave AMA. As patient was POD #1 s/p laparoscopic appendectomy, went to speak the patient. At bedside, just before meeting with patient, nurse also verbally expressed concerns about her mentation. On speaking to the patient, she explained that she had been discharged and irritated all day, first with her roommate's multiple guests during the day, which made rest and relaxation untenable, then by the nursing staff, whom she accused of laughing at her and talking about her behind her back, which she attributed to a "lack of respect." She noted at multiple points that she had "never been so poorly treated in a hospital" then asked for the names of myself and the nursing staff. After providing my name, I directed her to the board, which contained the names of the nurses and physicians, then recommended she contact HIM department upon her discharge request information regarding her stay, to which she agreed. She appeared fully oriented throughout our conversation and was not agitated, though was tearful at times. After accepting my apology on behalf of nursing, she agreed to receive IV Zosyn dose. She requested that the daytime physician see her "LALO" in the morning. Finally, she asked to be moved to a private room if possible, or to have new nurses assigned to her. I informed her that we we would try to accommodate her request if it were possible to. Resident Activity Tracking Resident Involvement: Resident Care Provided Care Provided: Adult [facility]
[2024-04-08 07:00] LABS: Basophils # (auto) 0.01 K/uL (0.00-0.20); Basophils % (auto) 0.1 %; Eosinophils # (auto) 0.03 K/uL (0.00-0.50); Eosinophils % (auto) 0.2 %; Hematocrit (blood only) 32.2 % (37.0-47.0); Hemoglobin 11.5 g/dl (12.0-16.0); Immature Granulocytes % (auto) 0.7 %; Lymphocytes # (auto) 0.92 K/uL (1.20-3.40); Lymphocytes % (auto) 6.4 %; Mean Corpuscular Hemoglobin 33.2 pg (25.0-34.0); Mean Corpuscular Hgb Conc 35.7 g/dL (32.0-36.0); Mean Corpuscular Volume 93.1 fL (80.0-100.0); Mean Platelet Volume 10.1 fL (9.4-12.4); Monocytes # (auto) 0.72 K/uL (0.11-0.59); Neutrophils # (auto) 12.64 K/uL (1.40-6.50); Neutrophils % (auto) 87.6 %; Platelet Count 189 K/uL (130-400); RDW Coefficient of Variation 13.1 % (11.5-14.5); Red Blood Count 3.46 M/uL (4.20-5.40); White Blood Count 14.42 K/ul (4.8-10.8)
[2024-04-08 07:20] LABS: BUN Creatinine Ratio 14.3 (10-20); Calcium 8.6 mg/dl (8.6-10.3); Creatinine Clr Calc Pharmacy 69.2 ml/min; Magnesium 1.9 mg/dl (1.7-2.4); Potassium 3.7 mmol/L (3.5-5.1)
[2024-04-08] MEDS: SENNA 8.6 MG TAB PO PRN (07:55)
[2024-04-08] MEDS: chlordiazePOXIDE HCl 25 MG CAP PO ONE (10:21)
--- NOTE | 2024-04-08 10:32 | Hospitalist Progress Note ---
Date of Service April 08, 2024 Assessment & Plan (1) Acute delirium: Plan: suspect alcohol withdrawal, will start scheduled librium and thiamine awss scale ordered Sinus tachycardia around 120 bpm on arrival. 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 early Sepsis A/P CT on arrival revealed severe acute appendicitis with findings suspicious for developing perforation; no abscess General Surgery OR 04/06 appendectomy, there was a small perf Continue Zosyn 4.5 g IV q8h iv pain control surgery is advising on diet advancement (3) Hypomagnesemia: Plan: Magnesium 1.2 on arrival, concern with h/o alcohol abuse replete 04/07 (4) Hyponatremia: Plan: Chronic; however low on admission improved to 129 SIADH labs ordered, s osm low, u osm nl and random urine sodium >20 , suspect (5) Tobacco use: Plan: Patient is a current everyday tobacco cigarette smoker; 0.5-1.0 PPD Nicotine patch if needed Plan Full code VTE PPx: SCDs;chemoprophylaxis if CT 04/08 without remark Admission and Anticipated Discharge Date Admission Date: April 06, 2024 Subjective pt had a code beaulieu threatened to leave AMA overnight, clinically looks like she maybe going in to alcohol withdrawal, tremulous, delerius wound is clean and dry tolerating liquid diet flatus Physical Exam Physical Exam: cardiac is regular lungs are clear wound intact, serous drainage in PRINCESS Results & Data Results & Data Vital Signs (Past 12 Hours) Vital Signs Temp Pulse Resp BP BP Pulse Ox O2 Del Method 04/08/24 07:35 97.9 F 95 H 18 113/71 92 Room Air 04/07/24 23:54 97.6 F 87 20 126/71 93 Room Air Laboratory Results reviewed cbc reviewed chemistry PG Care Time/CCT Total # of Minutes Spent Total Time Spent with Patient: Total time spent is greater than 50% in coordination of care (as documented) at patient's floor/unit and/or counseling patient: Coding Level of Care Code 92090 SUB INP/OBS CARE 3/50MIN Diagnoses Acute delirium R41.0 Acute appendicitis K35.80 Hypomagnesemia E83.42 Hyponatremia E87.1 Tobacco use Z72.0
--- NOTE | 2024-04-08 11:42 | Surgery Progress Note ---
Date of Service April 08, 2024 Assessment & Plan (1) S/P laparoscopic appendectomy: Plan: POD#2 s/p lap appy for perforated appendicitis no bowel function yet; continue clears/fulls OOB, ambulate continue IV antibiotics Admission and Anticipated Discharge Date Admission Date: April 06, 2024 Subjective POD#2 s/p lap appy for perforated appendicitis Physical Exam Physical Exam: NAD A&Ox3 AFVSS NCAT Abd soft; distended PRINCESS with serosanguinous drainage Results & Data Vital Signs (Past 12 Hours) Vital Signs Temp Pulse Resp BP BP Pulse Ox O2 Del Method 04/08/24 07:35 36.6 C 95 H 18 113/71 92 Room Air 04/07/24 23:54 36.4 C 87 20 126/71 93 Room Air
[2024-04-08] MEDS: LORazepam 2 MG/1 ML VIAL IV PRN (17:25)
[2024-04-08] MEDS: LACTATED RINGER'S 500 ML IV ONE (17:33)
[2024-04-08] MEDS: LACTATED RINGER'S 1,000 ML IV SCH (20:16)
[2024-04-09] MEDS: LORazepam 2 MG/1 ML VIAL IM STA ×2 (02:23→04:07)
--- NOTE | 2024-04-09 05:46 | Communication Note ---
Date of Service: April 09, 2024 Notified by nursing that patient was extremely agitated and increasingly confused overnight, patient pulled out her IV and was kicking at staff members. I ordered Ativan 1mg IM. Unfortunately patient remained very agitated and combative at nursing staff, soft limb restraints ordered. I went to bedside and patient was screaming. Patient asking for "other doctor" when I introduced myself as the overnight doctor, asked patient to elaborate and patient states she wants "the service line coordinator" but was unable to detail the reasons why she wanted to see a service line coordinator. Nursing expressed concern with her agitation and her possibly interfering with her drain (s/p appendectomy), ordered an additional Ativan 1mg IM. Resident Activity Tracking Resident Involvement: Resident Care Provided Care Provided: Adult Hospital Medicine
[2024-04-09 07:04] LABS: Basophils # (auto) 0.04 K/uL (0.00-0.20); Basophils % (auto) 0.3 %; Eosinophils # (auto) 0.08 K/uL (0.00-0.50); Eosinophils % (auto) 0.5 %; Hematocrit (blood only) 31.6 % (37.0-47.0); Hemoglobin 11.6 g/dl (12.0-16.0); Immature Granulocytes # (auto) 0.19 K/uL (0.01-0.20); Immature Granulocytes % (auto) 1.2 %; Lymphocytes # (auto) 1.18 K/uL (1.20-3.40); Lymphocytes % (auto) 7.7 %; Mean Corpuscular Hemoglobin 33.7 pg (25.0-34.0); Mean Corpuscular Hgb Conc 36.7 g/dL (32.0-36.0); Mean Corpuscular Volume 91.9 fL (80.0-100.0); Mean Platelet Volume 9.6 fL (9.4-12.4); Monocytes # (auto) 1.05 K/uL (0.11-0.59); Monocytes % (auto) 6.9 %; Neutrophils # (auto) 12.74 K/uL (1.40-6.50); Neutrophils % (auto) 83.4 %; Platelet Count 202 K/uL (130-400); RDW Coefficient of Variation 12.9 % (11.5-14.5); RDW Standard Deviation 43.5 fL (36.4-46.3); Red Blood Count 3.44 M/uL (4.20-5.40); White Blood Count 15.28 K/ul (4.8-10.8)
[2024-04-09 07:15] LABS: Calcium 8.7 mg/dl (8.6-10.3); Creatinine Clr Calc Pharmacy 69.2 ml/min
[2024-04-09] MEDS: THIAMINE HCL 100 MG TAB PO SCH (07:25)
[2024-04-09] MEDS: ENOXAPARIN INJ 40 MG/0.4 ML SYR SQ SCH (07:27)
[2024-04-09] MEDS: POTASSIUM CHLORIDE / WTR 10 MEQ/100 ML PLCT IV SCH (10:53)
--- NOTE | 2024-04-09 11:10 | Surgery Progress Note ---
Date of Service April 09, 2024 Assessment & Plan (1) S/P laparoscopic appendectomy: Plan: POD#3 s/p lap appy for perforated appendicitis no bowel function yet; continue clears/fulls OOB, ambulate continue IV antibiotics appreciate medicine management Admission and Anticipated Discharge Date Admission Date: April 06, 2024 Subjective POD#3 s/p lap appy for perforated appendicitis Sundowning overnight, question of alcohol withdrawal as well. Very disoriented this morning. No nausea or vomiting. No fevers. Physical Exam Physical Exam: NAD AF slight tachycardia NCAT Abd soft; distended PRINCESS with serosanguinous drainage Results & Data Vital Signs (Past 12 Hours) Vital Signs Temp Pulse Resp BP BP Pulse Ox O2 Del Method 04/09/24 11:03 36.7 C 112 H 18 180/84 H 94 Room Air 04/09/24 07:34 36.5 C 98 H 18 174/74 H 92 Room Air 04/08/24 23:45 36.7 C 106 H 20 117/75 93 Room Air
--- NOTE | 2024-04-09 15:39 | Hospitalist Progress Note ---
Date of Service April 09, 2024 Assessment & Plan (1) Acute delirium: Plan: suspect alcohol withdrawal, currently on scheduled librium and thiamine awss scale ordered Called son and left a message. Awaiting callback. I wanted to speak to him to get a sense of her drinking habits and the possibility of a withdrawal Sinus tachycardia around 120 bpm on arrival. 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 early Sepsis A/P CT on arrival revealed severe acute appendicitis with findings suspicious for developing perforation; no abscess General Surgery OR 04/06 appendectomy, there was a small perf Continue Zosyn 4.5 g IV q8h iv pain control Patient is on a full liquid diet (3) Hypomagnesemia: Plan: Magnesium 1.2 on arrival, concern with h/o alcohol abuse [id number] (4) Hyponatremia: Plan: Chronic; however low on admission improved to 129 SIADH labs ordered, Improved to 132 today with hydration (5) Tobacco use: Plan: Patient is a current everyday tobacco cigarette smoker; 0.5-1.0 PPD Nicotine patch if needed Plan Full code VTE PPx: SCDs;chemoprophylaxis once cleared by surgeon Admission and Anticipated Discharge Date Admission Date: April 06, 2024 Subjective Patient was seen and examined at 10:45 AM along with nurse. She is very confused and agitated. She is scoring high on the CIWA protocol. Review of Systems Review of Systems: All systems reviewed & are unremarkable except as noted in Subjective Physical Exam Physical Exam: General: Awake, conversant. Restless, tremulous, agitated Heart: S1, S2/regular rate and rhythm, no murmur rubs or gallops Lungs: Clear to auscultation bilaterally. Normal effort Abdomen: Soft/nondistended. Mild tenderness to palpation noted with no rebound, rigidity or guarding. PRINCESS drain noted. No hepatosplenomegaly Extremities: No clubbing/cyanosis. No edema Behavior: She did cooperate with me but has been making inappropriate and hostile remarks to the hospital staff Results & Data Results & Data Vital Signs (Past 12 Hours) Vital Signs Temp Pulse Resp BP Pulse Ox O2 Del Method 04/09/24 11:03 36.7 C 112 H 18 180/84 H 94 Room Air 04/09/24 07:34 36.5 C 98 H 18 174/74 H 92 Room Air Laboratory Results Abnormal lab results 04/09/24 Range/Units 06:20 WBC 15.28 H (4.8-10.8) K/ul RBC 3.44 L (4.20-5.40) M/uL Hgb 11.6 L (12.0-16.0) g/dl Hct 31.6 L (37.0-47.0) % MCHC 36.7 H (32.0-36.0) g/dL Neut # (Auto) 12.74 H (1.40-6.50) K/uL Lymph # (Auto) 1.18 L (1.20-3.40) K/uL Hendricks # (Auto) 1.05 H (0.11-0.59) K/uL Sodium 132 L (136-145) mmol/L Potassium 3.0 L (3.5-5.1) mmol/L Chloride 96 L (98-107) mmol/L PG Care Time/CCT Total # of Minutes Spent Total Time Spent with Patient: Total time spent is greater than 50% in coordination of care (as documented) at patient's floor/unit and/or counseling patient: Coding Level of Care Code 32647 SUB INP/OBS CARE 2/35MIN Diagnoses Acute delirium R41.0 Acute appendicitis K35.80 Hypomagnesemia E83.42 Hyponatremia E87.1 Tobacco use Z72.0
[2024-04-10] MEDS: OLANZapine 10 MG/2.1 ML SDV IM STA (03:11)
[2024-04-10] MEDS ORDERED: PHENobarbital sodium 65 MG/ML VIAL IV PRN ×2 (08:06→09:51)
--- NOTE | 2024-04-10 08:17 | Surgery Progress Note ---
Date of Service April 10, 2024 Assessment & Plan (1) S/P laparoscopic appendectomy: Plan: Patient is POD# 4 Tolerating clears/fulls without reported N/V. Patient becoming more agitated throughout the weekend, requiring upper extremity soft restraints and did receive IM Zyprexa over night. Afebrile, continuing IV antibiotic coverage, WBC 13 today. PRINCESS drain remains in place, serosanguineous output appreciated with 55mL recorded over 24 hours. No recorded BM, encourage OOB to chair and ambulation if appropriate/ more cooperative as above. nothing to add surgically. can advance diet over next 24 hours Admission and Anticipated Discharge Date Admission Date: April 06, 2024 Subjective Patient this morning drowsy, per chart review the patient was significantly agitated overnight and did require IM Zyprexa. WBC elevated yesterday to 15, however is downtrending today to 13, she has remained afebrile and continues on IV antibiotics Tolerating clears, no recorded BM, no N/V PRINCESS drain in place with 55mL with serosanguineous output Physical Exam Constitutional: Drowsy during exam this morning, resting in bed, NAD. Respiratory: normal respiratory effort; no respiratory distress Gastrointestinal (Abdomen): Abdomen soft and nondistended, nontender to palpation, no rebound, guarding or peritonitis. PRINCESS with serosanguinous drainage. Surgical sites are c/d/i without signs of infection. PG Care Time/CCT Total # of Minutes Spent Total Time Spent with Patient: Total time spent is greater than 50% in coordination of care (as documented) at patient's floor/unit and/or counseling patient: Coding Level of Care Code 14401 Post Operative Follow-Up Diagnoses S/P laparoscopic appendectomy Z90.49
[2024-04-10 08:22] LABS: Hematocrit (blood only) 36.6 % (37.0-47.0); Hemoglobin 13.4 g/dl (12.0-16.0); Mean Corpuscular Hemoglobin 32.9 pg (25.0-34.0); Mean Corpuscular Hgb Conc 36.6 g/dL (32.0-36.0); Mean Corpuscular Volume 89.9 fL (80.0-100.0); Mean Platelet Volume 9.3 fL (9.4-12.4); Platelet Count 234 K/uL (130-400); RDW Coefficient of Variation 12.7 % (11.5-14.5); RDW Standard Deviation 42.1 fL (36.4-46.3); Red Blood Count 4.07 M/uL (4.20-5.40)
[2024-04-10 08:32] LABS: BUN Creatinine Ratio 6.3 (10-20); Calcium 9.1 mg/dl (8.6-10.3); Creatinine Clr Calc Pharmacy 76.9 ml/min; Potassium 2.7 mmol/L (3.5-5.1)
[2024-04-10] MEDS: PHENobarbital PO Alcohol Withdrawal PO STA ×2 (11:12→18:21)
[2024-04-10] MEDS: PHENobarbital sodium 65 MG/ML VIAL IV STA ×2 (11:12→12:05)
[2024-04-10] MEDS: POTASSIUM CHLORIDE CRTAB 20 MEQ TABCR PO STA (12:06)
[2024-04-10] MEDS: POTASSIUM CHLORIDE / WTR 10 MEQ/100 ML PLCT IV SCH (12:07)
--- NOTE | 2024-04-10 13:15 | Hospitalist Progress Note ---
Date of Service April 10, 2024 Assessment & Plan (1) Acute delirium: Plan: suspect alcohol withdrawal. Discontinue Librium as not very effective. Switched to phenobarbital protocol. Transferred to PCU awss scale ordered Called son and left a message 04/09. Awaiting callback. I wanted to speak to him to get a sense of her drinking habits and the possibility of a withdrawal Sinus tachycardia around 120 bpm on arrival. 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 early Sepsis A/P CT on arrival revealed severe acute appendicitis with findings suspicious for developing perforation; no abscess General Surgery OR 04/06 appendectomy, there was a small perf Continue Zosyn 4.5 g IV q8h iv pain control Patient is on a full liquid diet General Surgery on board (3) Hypomagnesemia: Plan: Magnesium 1.2 on arrival, concern with h/o alcohol abuse /11 Replete potassium (4) Hyponatremia: Plan: Chronic; however low on admission improved to 129 SIADH labs ordered, Improved to 132 today with hydration Replete potassium (5) Tobacco use: Plan: Patient is a current everyday tobacco cigarette smoker; 0.5-1.0 PPD Nicotine patch if needed Plan Full code VTE PPx: SCDs;chemoprophylaxis once cleared by surgeon Admission and Anticipated Discharge Date Admission Date: April 06, 2024 Subjective I have seen and examined this patient at 12:30 PM. Reviewed overnight events. She has been very agitated requiring Zyprexa. I transferred her to PCU to be able to start her on phenobarbital protocol. During my encounter, patient was awake and was conversant. She appeared to be much less agitated today. Was calm. Was able to answer most of my questions. Per nurse, the patient is still confused and paranoid although I did not catch that during my encounter. The patient tells me that she has had anesthesia before that caused her similar reaction in the past. Review of Systems Review of Systems: All systems reviewed & are unremarkable except as noted in Subjective Physical Exam Physical Exam: General: Awake, conversant. Less agitated. Still slightly tremulous. Not screaming or yelling. Heart: S1, S2/regular rate and rhythm, no murmur rubs or gallops Lungs: Clear to auscultation bilaterally. Normal effort Abdomen: Soft/nondistended. Mild tenderness to palpation noted with no rebound, rigidity or guarding. PRINCESS drain noted. No hepatosplenomegaly Extremities: No clubbing/cyanosis. No edema Behavior: Cooperative, appropriate Results & Data Results & Data Vital Signs (Past 12 Hours) Vital Signs Temp Pulse Pulse Resp BP BP Pulse Ox 04/10/24 12:32 120 H 27 H 125/74 04/10/24 12:05 120 H 28 H 164/119 H 04/10/24 11:00 04/10/24 11:00 36.6 C 114 H 28 H 164/119 H 97 04/10/24 10:55 117 H O2 Del Method 04/10/24 12:32 04/10/24 12:05 04/10/24 11:00 Room Air 04/10/24 11:00 Room Air 04/10/24 10:55 Laboratory Results Abnormal lab results 04/10/24 Range/Units 07:51 WBC 13.10 H (4.8-10.8) K/ul RBC 4.07 L (4.20-5.40) M/uL Hct 36.6 L (37.0-47.0) % MCHC 36.6 H (32.0-36.0) g/dL MPV 9.3 L (9.4-12.4) fL Sodium 135 L (136-145) mmol/L Potassium 2.7 L (3.5-5.1) mmol/L Chloride 97 L (98-107) mmol/L Anion Gap 12 H (3-11) BUN 4 L (6-23) mg/dl BUN/Creatinine Ratio 6.3 L (10-20) PG Care Time/CCT Total # of Minutes Spent Total Time Spent with Patient: Total time spent is greater than 50% in coordination of care (as documented) at patient's floor/unit and/or counseling patient: Coding Level of Care Code 59598 SUB INP/OBS CARE 2/35MIN Diagnoses Acute delirium R41.0 Acute appendicitis K35.80 Hypomagnesemia E83.42 Hyponatremia E87.1 Tobacco use Z72.0
[2024-04-10] MEDS: PHENobarbital sodium 65 MG/ML VIAL IV PRN ×2 (13:32→15:14)
[2024-04-11] MEDS ORDERED: PHENobarbitaL 30 MG TAB PO SCH (02:00)
[2024-04-11 04:17] LABS: Hematocrit (blood only) 35.7 % (37.0-47.0); Hemoglobin 12.5 g/dl (12.0-16.0); Mean Corpuscular Hemoglobin 32.4 pg (25.0-34.0); Mean Corpuscular Volume 92.5 fL (80.0-100.0); Mean Platelet Volume 9.3 fL (9.4-12.4); Platelet Count 266 K/uL (130-400); RDW Coefficient of Variation 13.4 % (11.5-14.5); RDW Standard Deviation 45.1 fL (36.4-46.3); Red Blood Count 3.86 M/uL (4.20-5.40); White Blood Count 11.93 K/ul (4.8-10.8)
[2024-04-11 05:05] LABS: BUN Creatinine Ratio 9.5 (10-20); Calcium 8.7 mg/dl (8.6-10.3); Creatinine Clr Calc Pharmacy 76.9 ml/min; Potassium 3.8 mmol/L (3.5-5.1)
[2024-04-11] MEDS: PHENobarbitaL 30 MG TAB PO SCH (06:20)
--- NOTE | 2024-04-11 08:06 | Surgery Progress Note ---
Date of Service April 11, 2024 Assessment & Plan (1) Acute appendicitis: Plan: s/p laparoscopic appendectomy on 04/06 for perforated appendicitis WBC 11. Pt afebrile Mentation improved today Would continue on full liquid diet for today and will consider regular diet tomorrow Continue IV abx Will d/c PRINCESS drain today Anticipate dispo by the end of the wk as above. looks much better today. alert. dangelo liquids drain with scant output will remove wbc improved. Admission and Anticipated Discharge Date Admission Date: April 06, 2024 Subjective Patient appears more awake/alert, less agitated this AM. Denies abdominal complaints. No nausea/vomiting. Tolerating fulls. Physical Exam Physical Exam: awake, sitting up in bed having bfast Gastrointestinal (Abdomen): PRINCESS drain serosang Results & Data Vital Signs (Past 12 Hours) Vital Signs Temp Pulse Resp BP Pulse Ox O2 Del Method O2 Flow Rate 04/11/24 07:44 97.9 F 04/11/24 07:36 99 H 04/11/24 07:00 101 H 20 98 Room Air 04/11/24 07:00 132/75 04/11/24 06:00 105 H 17 124/74 98 Nasal Cannula 2 04/11/24 05:00 105 H 17 113/86 97 Nasal Cannula 2 04/11/24 04:00 104 H 17 130/91 98 Nasal Cannula 2 04/11/24 03:00 104 H 17 114/65 98 Nasal Cannula 2 04/11/24 02:36 108 H 23 95 Nasal Cannula 2 04/11/24 02:00 106 H 18 117/69 97 Nasal Cannula 2 04/11/24 01:36 107 H 15 110/64 92 Room Air 04/11/24 01:00 107 H 20 110/64 92 Room Air 04/11/24 00:00 108 H 19 106/65 93 Room Air 04/10/24 23:29 115 H 34 H 116/73 04/10/24 23:00 110 H 04/10/24 23:00 109 H 23 116/73 93 Room Air 04/10/24 22:00 109 H 22 116/77 93 Room Air 04/10/24 21:00 107 H 25 H 144/89 H 97 Room Air PG Care Time/CCT Total # of Minutes Spent Total Time Spent with Patient: Total time spent is greater than 50% in coordination of care (as documented) at patient's floor/unit and/or counseling patient: Coding Level of Care Code 97964 Post Operative Follow-Up Diagnoses Acute appendicitis K35.890 Acute appendicitis type: other (1) Acute appendicitis Acute appendicitis type: other Qualified Code(s): K35.890 - Other acute appendicitis without perforation or gangrene
[2024-04-11] MEDS: OXYBUTYNIN CHLORIDE XL 5 MG TABCR PO SCH (11:28)
--- NOTE | 2024-04-11 12:19 | Hospitalist Progress Note ---
Date of Service April 11, 2024 Assessment & Plan (1) Acute delirium: Plan: suspect alcohol withdrawal. Discontinued Librium as not very effective. Switched to phenobarbital protocol. Transferred to PCU awss scale ordered Called son and left a message 04/09. Awaiting callback. I wanted to speak to him to get a sense of her drinking habits and the possibility of a withdrawal Seems to have improved significantly today Unclear etiology. Patient thinks that it is a side effect of the anesthesia medications as it has happened to her previously post surgery Will complete the phenobarbital protocol. Sinus tachycardia around 120 bpm on arrival. 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 early Sepsis A/P CT on arrival revealed severe acute appendicitis with findings suspicious for developing perforation; no abscess General Surgery OR 04/06 appendectomy, there was a small perf Continue Zosyn 4.5 g IV q8h iv pain control Patient is on a full liquid diet General Surgery on board. PRINCESS drain has been removed today 04/11 (3) Hypomagnesemia: Plan: Magnesium 1.2 on arrival, concern with h/o alcohol abuse [id number] Replete potassium (4) Hyponatremia: Plan: Chronic; however low on admission improved to 129 SIADH labs ordered, Improved with hydration Repleted potassium (5) Tobacco use: Plan: Patient is a current everyday tobacco cigarette smoker; 0.5-1.0 PPD Nicotine patch if needed Plan Full code VTE PPx: SCDs;chemoprophylaxis once cleared by surgeon Admission and Anticipated Discharge Date Admission Date: April 06, 2024 Subjective Patient is much calmer today. She is able to hold a complete conversation. She tells me that "this" has happened to her previously after getting anesthesia. Review of Systems Review of Systems: All systems reviewed & are unremarkable except as noted in Subjective Physical Exam Physical Exam: General: Awake, conversant. Able to answer questions appropriately. Heart: S1, S2/regular rate and rhythm, no murmur rubs or gallops Lungs: Clear to auscultation bilaterally. Normal effort Abdomen: Soft/nondistended. Non tender. PRINCESS drain has been removed. Extremities: No clubbing/cyanosis. No edema Behavior: Cooperative, appropriate Results & Data Results & Data Vital Signs (Past 12 Hours) Vital Signs Temp Pulse Resp BP BP Pulse Ox O2 Del Method 04/11/24 09:48 136/78 04/11/24 07:44 36.6 C 04/11/24 07:36 99 H 04/11/24 07:00 101 H 20 98 Room Air 04/11/24 07:00 132/75 04/11/24 06:00 105 H 17 124/74 98 Nasal Cannula 04/11/24 05:00 105 H 17 113/86 97 Nasal Cannula 04/11/24 04:00 104 H 17 130/91 98 Nasal Cannula 04/11/24 03:00 104 H 17 114/65 98 Nasal Cannula 04/11/24 02:36 108 H 23 95 Nasal Cannula 04/11/24 02:00 106 H 18 117/69 97 Nasal Cannula 04/11/24 01:36 107 H 15 110/64 92 Room Air 04/11/24 01:00 107 H 20 110/64 92 Room Air O2 Flow Rate 04/11/24 09:48 04/11/24 07:44 04/11/24 07:36 04/11/24 07:00 04/11/24 07:00 04/11/24 06:00 2 04/11/24 05:00 2 04/11/24 04:00 2 04/11/24 03:00 2 04/11/24 02:36 2 04/11/24 02:00 2 04/11/24 01:36 04/11/24 01:00 Laboratory Results Abnormal lab results 04/11/24 Range/Units 03:52 WBC 11.93 H (4.8-10.8) K/ul RBC 3.86 L (4.20-5.40) M/uL Hct 35.7 L (37.0-47.0) % MPV 9.3 L (9.4-12.4) fL Sodium 133 L (136-145) mmol/L BUN/Creatinine Ratio 9.5 L (10-20) PG Care Time/CCT Total # of Minutes Spent Total Time Spent with Patient: Total time spent is greater than 50% in coordination of care (as documented) at patient's floor/unit and/or counseling patient: Coding Level of Care Code 55619 SUB INP/OBS CARE 2/35MIN Diagnoses Acute delirium R41.0 Acute appendicitis K35.80 Hypomagnesemia E83.42 Hyponatremia E87.1 Tobacco use Z72.0
[2024-04-11] MEDS: POLYETHYLENE (MIRALAX) 17 GM PACK PO PRN (21:20)
[2024-04-12] MEDS ORDERED: PHENobarbitaL 30 MG TAB PO SCH (02:00)
[2024-04-12 04:36] LABS: Hemoglobin 11.8 g/dl (12.0-16.0); Mean Corpuscular Hemoglobin 32.4 pg (25.0-34.0); Mean Corpuscular Hgb Conc 34.7 g/dL (32.0-36.0); Mean Corpuscular Volume 93.4 fL (80.0-100.0); Mean Platelet Volume 9.3 fL (9.4-12.4); Platelet Count 297 K/uL (130-400); RDW Coefficient of Variation 13.8 % (11.5-14.5); RDW Standard Deviation 47.2 fL (36.4-46.3); Red Blood Count 3.64 M/uL (4.20-5.40); White Blood Count 10.56 K/ul (4.8-10.8)
[2024-04-12 04:53] LABS: BUN Creatinine Ratio 11.7 (10-20); Calcium 8.6 mg/dl (8.6-10.3); Creatinine Clr Calc Pharmacy 80.7 ml/min; Potassium 3.8 mmol/L (3.5-5.1)
[2024-04-12] MEDS: PHENobarbitaL 30 MG TAB PO SCH (05:47)
--- NOTE | 2024-04-12 07:44 | Hospitalist Progress Note ---
Date of Service April 12, 2024 Assessment & Plan (1) Acute delirium: Plan: alcohol withdrawal. Discontinued Librium as was not controlling symptoms . Transferred to PCU & Switched to phenobarbital protocol. awss scale Unclear etiology. Patient thinks that it is a side effect of the anesthesia medications as it has happened to her previously post surgery Will complete the phenobarbital protocol. 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 early Sepsis A/P CT on arrival revealed severe acute appendicitis with findings suspicious for developing perforation; no abscess General Surgery OR 04/06 appendectomy, there was a small perf Continue Zosyn 4.5 g IV q8h iv pain control Patient is on a full liquid diet General Surgery on board. PRINCESS drain has been removed 04/11 (3) Hypomagnesemia: Plan: Magnesium 1.2 on arrival, concern with h/o alcohol abuse [id number] Replete potassium (4) Hyponatremia: Plan: Chronic; however low on admission -> improved (5) Tobacco use: Plan: Patient is a current everyday tobacco cigarette smoker; 0.5-1.0 PPD Nicotine patch if needed Plan Full code VTE PPx: lovenox Admission and Anticipated Discharge Date Admission Date: April 06, 2024 Results & Data Results & Data Vital Signs (Past 12 Hours) Vital Signs Temp Pulse Resp BP 04/12/24 06:24 102 H 23 04/12/24 05:06 103 H 18 04/12/24 05:00 135/77 04/12/24 04:42 104 H 15 04/12/24 04:15 103 H 15 04/12/24 04:00 121/78 04/12/24 04:00 98.4 F 04/12/24 03:33 102 H 16 04/12/24 03:06 103 H 16 04/12/24 03:00 143/79 H 04/12/24 03:00 143/79 H 04/12/24 02:51 106 H 18 04/12/24 02:00 102 H 16 04/12/24 02:00 129/77 04/12/24 02:00 129/77 04/12/24 01:00 103 H 15 04/12/24 01:00 117/81 04/12/24 01:00 117/81 04/12/24 01:00 117/81 04/12/24 00:00 97.9 F 04/12/24 00:00 103 H 04/12/24 00:00 104 H 11 L 04/12/24 00:00 114/82 04/12/24 00:00 114/82 04/11/24 23:00 111/79 04/11/24 23:00 104 H 13 04/11/24 22:00 128/80 04/11/24 22:00 128/80 04/11/24 22:00 128/80 04/11/24 22:00 99 H 15 04/11/24 21:00 128/82 04/11/24 21:00 98 H 25 H 04/11/24 20:09 105 H 24 04/11/24 20:00 112/76 04/11/24 20:00 112/76 04/11/24 20:00 98.1 F 04/11/24 19:54 100 H 15 PG Care Time/CCT Total # of Minutes Spent Total Time Spent with Patient: Total time spent is greater than 50% in coordination of care (as documented) at patient's floor/unit and/or counseling patient: Coding Diagnoses Acute delirium R41.0 Acute appendicitis K35.80 Hypomagnesemia E83.42 Hyponatremia E87.1 Tobacco use Z72.0
--- NOTE | 2024-04-12 07:57 | Surgery Progress Note ---
Date of Service April 12, 2024 Assessment & Plan (1) S/P laparoscopic appendectomy: Plan: s/p laparoscopic appendectomy on 04/06 for perforated appendicitis WBC wnl Pt afebrile Continue IV abx alert and oriented regular diet today voiding in toilet without difficulty +flatus , no bm yet possible d/c today vs tomorrow pending medicine decision Admission and Anticipated Discharge Date Admission Date: April 06, 2024 Subjective +flatus, stool with wiping OOB to BR , voiding without difficulty denies pain, n/v desires to go home Review of Systems Constitutional: no fever and no chills Gastrointestinal: no abdominal pain, no nausea and no vomiting Genitourinary: no dysuria Physical Exam Constitutional: cooperative and comfortable; no acute distress Respiratory: able to speak in complete sentences; no respiratory distress Gastrointestinal (Abdomen): Inspection/Auscultation: + abdominal surgical incision (CDI dermabond, post surgical drain site covered with dry gauze and medipore); abdomen not distended Percussion/Palpation: abdomen soft Results & Data Vital Signs (Past 12 Hours) Vital Signs Temp Pulse Resp BP 04/12/24 06:24 102 H 23 04/12/24 05:06 103 H 18 04/12/24 05:00 135/77 04/12/24 04:42 104 H 15 04/12/24 04:15 103 H 15 04/12/24 04:00 121/78 04/12/24 04:00 98.4 F 04/12/24 03:33 102 H 16 04/12/24 03:06 103 H 16 04/12/24 03:00 143/79 H 04/12/24 03:00 143/79 H 04/12/24 02:51 106 H 18 04/12/24 02:00 102 H 16 04/12/24 02:00 129/77 04/12/24 02:00 129/77 04/12/24 01:00 103 H 15 04/12/24 01:00 117/81 04/12/24 01:00 117/81 04/12/24 01:00 117/81 04/12/24 00:00 97.9 F 04/12/24 00:00 103 H 04/12/24 00:00 104 H 11 L 04/12/24 00:00 114/82 04/12/24 00:00 114/82 04/11/24 23:00 111/79 04/11/24 23:00 104 H 13 04/11/24 22:00 128/80 04/11/24 22:00 128/80 04/11/24 22:00 128/80 04/11/24 22:00 99 H 15 04/11/24 21:00 128/82 04/11/24 21:00 98 H 25 H 04/11/24 20:09 105 H 24 04/11/24 20:00 112/76 04/11/24 20:00 112/76 04/11/24 20:00 98.1 F 04/11/24 19:54 100 H 15 Results CBC w Diff Results: RBC 3.64 M/uL (4.20-5.40) L 04/12/24 WBC 10.56 K/ul (4.8-10.8) 04/12/24 Hgb 11.8 g/dl (12.0-16.0) L 04/12/24 Hct 34.0 % (37.0-47.0) L 04/12/24 MCV 93.4 fL (80.0-100.0) 04/12/24 MCH 32.4 pg (25.0-34.0) 04/12/24 MCHC 34.7 g/dL (32.0-36.0) 04/12/24 RDW Standard Deviation 47.2 fL (36.4-46.3) H 04/12/24 RDW Coefficient of Variation 13.8 % (11.5-14.5) 04/12/24 Plt Count 297 K/uL (130-400) 04/12/24 MPV 9.3 fL (9.4-12.4) L 04/12/24 Neutrophils (%) (Auto) 83.4 % 04/09/24 Lymphocytes (%) (Auto) 7.7 % 04/09/24 Monocytes # (Auto) 1.05 K/uL (0.11-0.59) H 04/09/24 Eosinophils # (Auto) 0.08 K/uL (0.00-0.50) 04/09/24 Immature Granulocyte % (Auto) 1.2 % 04/09/24 Neutrophils # (Auto) 12.74 K/uL (1.40-6.50) H 04/09/24 Lymphocytes # (Auto) 1.18 K/uL (1.20-3.40) L 04/09/24 Monocytes # (Auto) 1.05 K/uL (0.11-0.59) H 04/09/24 Eosinophils # (Auto) 0.08 K/uL (0.00-0.50) 04/09/24 Basophils # (Auto) 0.04 K/uL (0.00-0.20) 04/09/24 Immature Granulocyte # (Auto) 0.19 K/uL (0.01-0.20) 4 Echinocytes 1+ 04/07/24 PG Care Time/CCT Total # of Minutes Spent Total Time Spent with Patient: Total time spent is greater than 50% in coordination of care (as documented) at patient's floor/unit and/or counseling patient: Coding Level of Care Code 22008 Post Operative Follow-Up Diagnoses S/P laparoscopic appendectomy Z90.49
[2024-04-12] MEDS: 4.5GM X1 IV ONE (08:46)
[2024-04-12] MEDS: PIPERACILLIN/TAZOBACTAM 4.5 GM/100 ML BAG IV SCH (12:11)
[2024-04-12 13:16] VITALS: PULSE 102; RESP 18; TEMP 98.6; O2SAT 94
[2024-04-12 13:28] VITALS: BP 120/90
--- NOTE | 2024-04-12 17:18 | Discharge Summary ---
Discharge Summary Date of Service April 12, 2024 Principal Dx & Hospital Course #1 = Principal Diagnosis (1) Acute delirium: benzodiazepine and alcohol withdrawal. . Transferred to PCU & Switched to phenobarbital protocol. pt takes daily scheduled xanax and was made npo with perforated appendicitis, this likley precipitated withdrawal Will complete the phenobarbital protocol. Sinus tachycardia - resolved History of mitral valve replacement, tricuspid valve repair, and CABG in May 2023, tricuspid repair and cad with CABGx1 Troponin normal (2) Acute appendicitis: Acute onset of RLQ abdominal pain and vomiting the evening of 04/05. early Sepsis A/P CT on arrival revealed severe acute appendicitis with findings suspicious for developing perforation; no abscess General Surgery OR 04/06 appendectomy, there was a small perf Continue oral antibiotics after discharge and follow up with general surgery General Surgery on board with abby . PRINCESS drain has been removed 04/11 (3) Hypomagnesemia: Magnesium 1.2 on arrival, concern with h/o alcohol abuse [id number] Replete potassium (4) Hyponatremia: Chronic; however low on admission -> improved (5) Tobacco use: Patient is a current everyday tobacco cigarette smoker; 0.5-1.0 PPD Nicotine patch if needed cessation counselling offered Plan Full code Notes For Next Care Provider discussion of med, maybe try to taper xanax, limit alcohol discussion Admission HPI Per Admitting Provider Sukh is a pleasant 64-year-old female with PMH of anxiety, mitral regurgitation s/p valve replacement, CAD s/p CABG x 1, HFmEF, hypothyroidism, tobacco use, alcohol use, stress incontinence, and MDD. She presents on 04/06 for severe right lower quadrant pain that developed the evening of 04/05. The pain came on gradually over the course of the evening, then became severe at night and she started vomiting. She describes it as a "sharp" pain that is located in her right lower quadrant. Worse with movements. She is unable to rated at its worst, but reports it is 3/10 after receiving pain medicine in the ED as long as she stays still; 6/10 at present when she moves. The pain is intermittent and comes in waves. She did not take any pain medicine prior to coming in. No radiation to other parts the abdomen, back, or down the legs. No prior history of abdominal surgeries. Patient did not take her regular medications last night or this morning due to vomiting. No recent change in medications. She manages her own medicine at home. She does have significant past cardiac history. Per patient, history of a "silent" [place] that she found out about when she had a heart surgery in May 2023; during this heart surgery she had her mitral valve rep laced as well as a CABG. No PMH of CHF, stroke, DM, or insulin usage. She denies chest pain when she walks up steps or chest pain at rest. She takes daily aspirin, but is unsure if she has a heart stent. Patient's friend (Guerline) is at the bedside at time of admission. Patient reports that she is an everyday tobacco cigarette user; 0.51.0 PPD. She also endorses intermittent alcohol use with last drink being yesterday evening 04/05; 1 mixed drink of [employer] vodka and cranberry. She normally drinks 2-3 drinks per week. Patient is tachycardic at 124 bpm at time of admission; vitals otherwise stable. ED course: Toradol 10 mg IV NSS 500 mL IV x 2 Acetaminophen 1000 mg IV Zofran 4 mg IV Zosyn 4.5 g IV ROS: Patient endorses fever, chills, night-sweats, LOMAS, RLQ pain, nausea, and vomiting. Patient denies dizziness, lightheadedness, chest pain, chest palpitations, SOB, cough, pleuritic CP, diarrhea, hematemesis, changes in urinary/bowel habits, burning with urination, or blood in urine/stool. Discharge Exam Awake alert making sense. Abdomen had normal active bowel sounds she was soft she was tender particularly in the lower quadrant bandage on the site of her where drain was placed Discharge Plan Discharge Items Patient Disposition: Home - Self-Care Reason For Visit: ACUTE APPENDICITIS Discharge Diagnosis: Laparoscopic appendectomy perforated appendicitis Hospital delerium Condition on Discharge: Fair Activity: Per Instructions section Lifting: No more than 10 pounds Bathing Comment: you can shower 04/07. No soaking in baths/pools for 2 weeks Exercise/Sports: Wait until after follow-up appointment Driving/Machine Use: wait at least 3 days, and no driving while on narcotics for pain Non-emergency contact: Surgeon Call non-emergency contact if: you have any medication questions, your symptoms worsen, you have a fever, your temperature is above 101.5, your wound has increased redness, your wound has increased drainage and your wound pain has increased Follow-up/Referrals: Dewey Cano DO [Surgeon] - 04/25/24 9:40 am (call office for f/u in 2 weeks ) Horacio Morgan DO [Primary Care Provider] - 04/19/24 9:00 am Diet: Regular Addtl Attending Provider Instructions: You have surgical glue called dermabond on your surgical site incisions. You may shower with this on. This will tend to come off within a couple of weeks. Do not pick at it. You may change the dressing over your old surgical drain site daily and as needed with dry gauze/medical tape until healed. Please complete the full course of antibiotic prescribed to you You may purchase Tylenol and/or Ibuprofen over the counter if needed for additional pain control over the next few days. Take per manufacturers instructions Pending Studies at Discharge: Yes Studies:: surgical pathology Stand-Alone Forms: My [facility] [place], Smoking Cessation Medications and DC Order Prescriptions: New oxycodone 5 mg tablet 5 - 10 mg PO .[id number] PRN (Reason: pain, for initial therapy, max 6 tabs per day) Qty: 10 0RF phenobarbital 30 mg tablet 30 mg PO UD Qty: 5 0RF Rx Instructions: 2 pills 04/12 evening 1 pill am one pm 04/13 1 pill 04/14 ciprofloxacin HCl [Cipro] 500 mg tablet 500 mg PO BID Qty: 14 0RF metronidazole 500 mg tablet 500 mg PO BID 7 Days Qty: 14 0RF Continued aspirin [Adult Low Dose Aspirin] 81 mg tablet,delayed release (DR/EC) 81 mg PO DAILY Qty: 90 3RF omeprazole 20 mg capsule,delayed release(DR/EC) 20 mg PO QAM Qty: 90 3RF multivitamin [Daily Multi-Vitamin] Tablet 1 tab PO QAM Qty: 90 1RF magnesium oxide 400 mg magnesium tablet 400 mg PO QAM Qty: 30 5RF albuterol sulfate [Ventolin HFA] 90 mcg/actuation HFA aerosol inhaler 2 puff inhalation QID Qty: 8 5RF Patient Comments: uses prn Rx Instructions: BRAND-BANDAR folic acid 1 mg tablet 1 mg PO QAM Qty: 90 0RF buspirone 10 mg tablet 10 mg PO BID Qty: 180 1RF escitalopram oxalate [Lexapro] 20 mg tablet 20 mg PO DAILY Qty: 90 0RF sodium chloride 1,000 mg tablet,soluble 1,000 mg PO DAILY Qty: 30 0RF levothyroxine [Synthroid] 50 mcg tablet 50 mcg PO DAILY Qty: 30 2RF vitamin B complex Tablet 1 tab PO DAILY mecobalamin (vitamin B12) 500 mcg tablet,chewable 500 mcg PO DAILY acetaminophen 650 mg tablet extended release 650 mg PO Q6H PRN (Reason: Pain) alprazolam 0.5 mg tablet 0.5 mg PO QID Qty: 120 0RF Rx Instructions: please fill on 03/22/24 trospium 60 mg capsule,extended release 24hr 60 mg PO DAILY Qty: 90 3RF Rx Instructions: must be taken on empty stomach at least 1 hour before a meal/food with water only ferrous sulfate 324 mg (65 mg iron) Tablet,Delayed Release (Dr/Ec) 324 mg PO QAM sennosides [senna] 8.6 mg tablet 8.6 mg PO QAM PRN (Reason: Constipation) nitroglycerin [Nitrostat] 0.4 mg tablet, sublingual 0.4 mg sublingual Q5M PRN (Reason: chest pain) Qty: 25 2RF Rx Instructions: Take 1 tab sublingual every 5 min as needed for chest pain. Max 3 doses per episode. Call 911 if chest pain persists after 1st dose. doxycycline hyclate 100 mg capsule 100 mg PO DAILY PRN (Reason: dental appointment) Rx Instructions: 1 tablet 30-60 min prior to dental procedure/cleaning rosuvastatin 20 mg tablet 10 mg PO UD Rx Instructions: original: 10 mg po hs fill history day supply: 20 mg po hs. Discharge Orders: Discharge Order (Routine); Ordered 04/12/24 Ordered By: Kyaw Mcclendon Admission Data Admit Date/Time: 04/06/24 12:14 Attending Provider: Kyaw Mcclendon Admit Provider: Shankar Snider Primary Care Provider: Horacio Morgan Other Providers: Shankar Snider; Dewey Cano Other Interventions: Discharge Summary Assessment (RN) Last Done: 04/12/24 13:27 Hospital Stay Data Consultations 04/06/24 11:42 ED Decision to Admit Stat 04/06/24 12:08 Consult General Surgery Stat Procedures Performed Operation Date: 04/06/24 10:30 Actual Procedures p Laparoscopic Appendectomy(Not Applicable) - Dewey Cano, DO Diagnostic Imagining Performed 04/06/24 09:33 CT abd pelvis IV con only Stat Pending Results Patient Have Any Pending Studies at Discharge: Yes Discharge Instructions Given to Patient (Per Discharging Provider) You have surgical glue called dermabond on your surgical site incisions. You may shower with this on. This will tend to come off within a couple of weeks. Do not pick at it. You may change the dressing over your old surgical drain site daily and as needed with dry gauze/medical tape until healed. Please complete the full course of antibiotic prescribed to you You may purchase Tylenol and/or Ibuprofen over the counter if needed for additional pain control over the next few days. Take per manufacturers instructions Total Time Total Time Spent Total Time Spent (In Minutes): It required greater than 30 minutes to prepare this patient for discharge. Coding Level of Care Code 58484 INP/OBS DISCH >30 MIN Diagnoses Acute delirium R41.0 Acute appendicitis K35.80 Hypomagnesemia E83.42 Hyponatremia E87.1 Tobacco use Z72.0
[2024-04-13] MEDS ORDERED: PHENobarbitaL 30 MG TAB PO SCH ×2 (14:00→18:00)
== END 2024-04-12 15:43 | disposition home or self-care (01) | DRG 853 ==
LOC: ED 09:14 → SUATTDRO 12:14 → 2N 12:14 → 1E 04-10 10:34
DX: F32.9 Major depressive disorder, single episode, unspecified; I25.10 Atherosclerotic heart disease of native coronary artery without angina pectoris; K35.32 Acute appendicitis with perforation, localized peritonitis, and gangrene, without abscess; Z95.2 Presence of prosthetic heart valve; E03.9 Hypothyroidism, unspecified; Z95.1 Presence of aortocoronary bypass graft; F13.931 Sedative, hypnotic or anxiolytic use, unspecified with withdrawal delirium; Z79.899 Other long term (current) drug therapy; Z79.82 Long term (current) use of aspirin; F10.931 Alcohol use, unspecified with withdrawal delirium; F41.9 Anxiety disorder, unspecified; I42.9 Cardiomyopathy, unspecified; R33.9 Retention of urine, unspecified; A41.9 Sepsis, unspecified organism; I50.22 Chronic systolic (congestive) heart failure; Z79.890 Hormone replacement therapy; F17.210 Nicotine dependence, cigarettes, uncomplicated; Z88.1 Allergy status to other antibiotic agents; E22.2 Syndrome of inappropriate secretion of antidiuretic hormone; E83.42 Hypomagnesemia